=== PATIENT | male | born 1960 | race Caucasian/White ===

== ENCOUNTER → 2017-05-11 | Day surgery (SDC) | payer OTHER ==
--- OUTSIDE RECORDS SUMMARY | 2017-05-10 09:42 | XMS REPORT ---
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 Allergies, Adverse Reactions, Alerts This patient has no known allergies or adverse reactions. Medications This patient has no known medications. Results Test Description Test Time Test Comments Text Results Atomic Results Result Comments CT ABDOMEN/PELVIS WO [place] [address] Patient Name: SHEFALI HERMAN MR #: [id number] : 1960 Age/Sex: 56/M Req # : [id number] Adm Physician: Ordered by: SHARAN CHRISTIANSON OPTIMIZATION CONSULTANT Report #: [id number] Location: ER Room/Bed: Procedure: [id number] CT/CT ABDOMEN/PELVIS WO Exam Date: 11/13/16 Exam Time: 1954 REPORT STATUS: Signed EXAM: CT Abdomen and Pelvis WITHOUT contrast INDICATION: Abdominal pain COMPARISON: CT abdomen and pelvis 11/27/2008 TECHNIQUE: Abdomen and pelvis were scanned utilizing a multidetector helical scanner from the lung base to the pubic symphysis. Coronal and sagittal reformations were obtained. The lack of intravenous contrast limits the evaluation of the solid organs, vasculature, and possible lymphadenopathy. Protocol: General survey without contrast IV CONTRAST : No intravenous contrast was administered as per physician request. ORAL CONTRAST: Oral contrast was administered. COMPLICATIONS: None. RADIATION DOSE: Total Exam DLP: 861.4 mGy*cm. CTDIvol has been reviewed. It is below the limits set by the Radiation Protocol Committee (RPC). FINDINGS: LINES: None. Lower thorax: No parenchymal abnormality. No pneumothorax. No pleural effusion. Liver: No focal mass. No hepatomegaly. Normal parenchyma. Gallbladder: Cholelithiasis. No gallbladder distention. Biliary tree: No intrahepatic duct dilation. No extrahepatic duct dilation. Spleen: No splenomegaly. No focal mass. Pancreas: No focal mass. Normal pancreatic duct. No peripancreatic inflammatory changes. Kidneys: No obstructing calculi. No hydronephrosis. No cysts. No perinephric soft tissue inflammatory changes. Adrenal glands: No adrenal nodules.. Bladder: Normal urinary bladder. Pelvic organs: Normal. GI: No bowel wall thickening. No air-fluid levels. The stomach and small bowel are normal. Multiple diverticuli present in the sigmoid colon, without adjacent soft tissue inflammatory changes. Normal appendix. A moderate amount of retained feces limits intraluminal evaluation of the colon. Peritoneum/ retroperitoneum: No pneumoperitoneum. No ascites. No drainable fluid collection. Lymph nodes: No lymphadenopathy. . Vessels: No focal abnormality. Aortoiliac atherosclerotic calcifications. Limited evaluation. Bones: No focal abnormality. Degenerative changes of the lumbar spine. Soft tissues: No focal abnormality. IMPRESSION: No acute abnormality of the abdomen and pelvis. Cholelithiasis. Diverticulosis without evidence of diverticulitis. Signed by: Dr. Matteo Sánchez M.D. on 11/13/2016 8 :28 PM Dictated By: MATTEO SÁNCHEZ MD 27 Transcribed By: FLOWER on 11/13/162027 COPY TO: SHARAN CHRISTIANSON NP CHEST SINGLE (PORTABLE) [place] [address] Patient Name: SHEFALI HERMAN MR #: [id number] : 1960 Age/Sex: 56/M Req #: [id number] Adm Physician: Ordered by: SCOOBY ZAIDI MD Report #: [id number] Location: Room/Bed: Procedure: [id number] DX/CHEST SINGLE (PORTABLE) Exam Date: Exam Time: REPORT STATUS: Signed PROCEDURE: A single AP view of the chest. COMPARISON: Chest x-ray 11/01/2013. INDICATIONS: RECTAL BLEED, SOB FINDINGS: Lines/tubes: None. Lungs: The lungs are well inflated. Mild left basilar atelectasis. There is no evidence of pneumonia or pulmonary edema. Pleura: There is no pleural effusion or pneumothorax. Heart and mediastinum: The heart and the mediastinum are unremarkable. Bones: No acute bony abnormality. IMPRESSION: No acute cardiopulmonary disease. Dictated by: Jeff Hayward M.D. on 2016 at 18:36 Electronically approved by: Jeff Hayward M.D. on 11/13/2016 at 18:36 Dictated By: JEFF HAYWARD MD 35 Transcribed By: LILIANA on 11/13/161835 COPY TO: SCOOBY ZAIDI MD
[2017-05-10 11:00] LABS: ANION GAP 14.8 mmol/L (8-16); CREATININE, SERUM 1.31 mg/dL (0.72-1.25); POTASSIUM 3.8 mmol/L (3.5-5.1)
[~2017-05-11] MED LIST: ALLEGRA ALLERGY60 MG PO; ALLERGY OTC PO; ASPIR 8181 MG PO; BUPIVACAINE HCL 0.5% INJ 30 ML VIAL INJ ONE; BYSTOLIC10 MG PO; CLINDAMYCIN 600MG/D5W 50ML 50 ML IV ONE; CRESTOR20 MG PO; DEXAMETHASONE SOD PHOS INJ 4 MG/ML VIAL ONE; DEXILANT60 MG PO; DIOVAN HCT 1601 EACH PO; DIOVAN HCT 3201 EACH PO; EPHEDRINE SULFATE INJ 50 MG/10 ML SYR ONE; EXFORGE HCT 5-1 EACH PO; FENTANYL CITRATE/PF 100MCG/2 ML INJ ONE; FLAGYL500 MG PO; GLYCOPYRROLATE INJ 1MG/ 5 ML SYR ONE; HEMOCYTE PLUS1 EACH PO; LEVAQUIN500 MG PO; LIDOCAINE HCL 2% LOCAL INJ 5 ML SDV VIAL INJ ONE; METOCLOPRAMIDE HCL 10 MG/2ML VIAL ONE; MIDAZOLAM HCL 2 MG/2 ML VIAL ONE; MUPIROCIN 2% OINT 22 GM TUBE ONE; NEXIUM40 MG PO; NORCO 7.5-3251 EACH PO; ONDANSETRON HCL INJ 2 MG/ML VIAL ONE; PROPOFOL IV EMULSION 10 MG/ML 20 ML VIAL ONE; SEVOFLURANE INHAL SOLN 250 ML PEN BTL ONE; TRILIPIX135 MG PO; TYLENOL PO; VASOPRESSIN INJ 20 UNIT/ML VIAL ONE; ZETIA10 MG PO
--- NOTE | 2017-05-11 12:07 | Operative Report ---
DATE OF PROCEDURE: May 11, 2017 PREOPERATIVE DIAGNOSIS: Left ulnar nerve compression neuropathy. POSTOPERATIVE DIAGNOSIS: Left cubital tunnel syndrome. PROCEDURE: Left ulnar nerve transposition. ANESTHESIA: General. HISTORY: The patient is a 56-year-old right-hand dominant male who has nerve conduction study showing severe left cubital tunnel syndrome. The risks, benefits, and alternatives of treatment were discussed with the patient and he is prepared to undergo the procedures outlined. PROCEDURE IN DETAIL: The patient was marked preoperatively in the holding area. He was brought to the operating theater and after the induction of adequate general anesthesia, he was prepped and draped in a supine position. A time out is performed. An incision was marked out from the medial epicondyle extending proximally in the groove between the biceps and the triceps muscle for approximately 5 to 6 cm. Distally over the flexor pronator muscle mass, an incision was marked out for approximately 5 to 6 cm as well. The left upper extremity is then exsanguinated, and a tourniquet is inflated to a pressure of 250 mmHg. The incision was made through the skin and subcutaneous tissues. Small venous tributaries were controlled with the electrocautery. The incision is deepened through the subcutaneous tissue and branches of the medial antebrachial cutaneous nerve were identified and protected and preserved. At this point, the dissection continues directly onto the medial epicondyle. The tissues are elevated off of the flexor pronator muscle mass distally to allow for good visualization. Proximally, the subcutaneous tissues were elevated off of the deep fascia up to the level of the distal third of the humerus. The intermuscular septum is identified and immediately posterior to this, the fascia overlying the ulnar nerve is identified. 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
--- NOTE | 2017-05-11 12:46 | Operative Report ---
DATE OF PROCEDURE: May 11, 2017 PREOPERATIVE DIAGNOSIS: Left cubital tunnel syndrome. POSTOPERATIVE DIAGNOSIS: Left cubital tunnel syndrome. PROCEDURE: Left ulnar nerve transposition. ANESTHESIA: General. HISTORY: Patient is a 56-year-old right-hand dominant male with a nerve conduction study test showing severe nerve entrapment at the level of the elbow. Risks, benefits, and alternatives of treatment were discussed with the patient and the family and they are prepared to undergo the procedures outlined. PROCEDURE IN DETAIL: Patient was marked preoperatively in the holding area. He was brought to the operating theater. After the induction of adequate general anesthesia, he was prepped and draped in a supine position. A time out was performed. An incision was marked out extending proximally and distally from the medial epicondyle for approximately 5 to 6 cm. The proximal limb is over the intermuscular groove and the distal limb is over the flexor pronator muscle mass. The left upper extremity was exsanguinated and tourniquet was inflated to a pressure of 250 mmHg. The incision was made through the skin and subcutaneous tissue. Bleeding was controlled using electrocautery. The incision was deepened through the subcutaneous tissues. The branches of the medial antebrachial cutaneous nerve were identified and protected and preserved. Over the flexor pronator muscle mass, the skin and subcutaneous tissues were elevated widely. Over the proximal portion of the distal aspect of the upper arm, the intermuscular septum was identified and the tissues are elevated off of the deep fascial plane. Posterior to the intermuscular septum, an incision was made in the fascia overlying the ulnar nerve and the ulnar nerve was identified. Using the ulnar nerve as a guide, the fascia is divided from proximal to distal through the cubital tunnel, taking care to protect and preserve the ulnar nerve throughout its course. The incision was then carried down to the flexor pronator muscle mass where the first 4 to 5 cm of flexor pronator fascia and muscle was divided in the direction of its fibers directly overlying the ulnar nerve. At this point, the ulnar nerve is dissected posteriorly and a 0.25-inch Nabil drain is placed around it proximally. Using the [place] drain for traction, the ulnar nerve is elevated out of its bed from proximal to distal. Once the ulnar nerve is completely released, it is left in situ. The intermuscular septum has its distal attachments to the medial epicondyle removed sharply so that it does not create a annamarie-site of compression when the nerve is transposed. Resection of the flexor pronator muscle mass was marked out and this is excised using the electrocautery in order to allow a smooth transition from the subcutaneous space to the sub-flexor pronator position. At this point, the nerve is then elevated out of its bed using the [place] and transposed subcutaneously and anteriorly. The elbow is placed through a range of motion and it is noted that the nerve is without kinking or any acuity to its course and lies quite nicely. At this point, the subcutaneous tissues of the elbow are transfixed to the fascia of the medial epicondyle using interrupted 3-0 Vicryl sutures in a [id number] fashion to create a sling and prevent the nerve from subluxing back into the cubital tunnel. Once again, the tunnel is checked to make sure that there is no compression on the nerve and that the nerve glides smoothly. The wound is then copiously irrigated with bacteriostatic saline, closed with 3-0 Vicryl in interrupted buried fashion followed by 5-0 nylon in interrupted horizontal mattress fashion. A Marcaine field block is performed at the operative site using 0.5% plain Marcaine, approximately 20 mL is used. The patient tolerates the procedure well. The incision is dressed with Bactroban ointment, Xeroform gauze, and a sterile bulky conforming bandage from axilla to wrist and a fiberglass splint is fashioned and held in place with a loosely wrapped Mango wrap to maintain the elbow in approximately 75 degrees of flexion and it is held in place with a loosely wrapped Mango wrap. The patient tolerated the procedure well and was brought to the recovery room in satisfactory condition. The tourniquet was deflated. All the fingers pinked up nicely and the patient was returned to recovery room in satisfactory condition and discharged with a postoperative instruction sheet as well as a followup appointment. 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
== END | disposition home or self-care (01) ==
LOC: OR 05-10 09:39
PROVIDERS: ATTEND Plastic Surgery
DX: G56.22 Lesion of ulnar nerve, left upper limb (principal); I25.10 Atherosclerotic heart disease of native coronary artery without angina pectoris; I10 Essential (primary) hypertension; G89.29 Other chronic pain; K21.9 Gastro-esophageal reflux disease without esophagitis; K44.9 Diaphragmatic hernia without obstruction or gangrene; Z01.812 Encounter for preprocedural laboratory examination; Z79.82 Long term (current) use of aspirin; Z95.5 Presence of coronary angioplasty implant and graft; Z87.891 Personal history of nicotine dependence
CPT/HCPCS: 36415; 64718; 80048; J1100; J2001; J2250; J2405; J2765

== ENCOUNTER 2017-09-02 10:06 | Inpatient (IN) | payer OTHER ==
[2017-09-02] VITALS (12 sets, daily range): BP systolic 115–134; BP diastolic 59–101
[~2017-09-02] VITALS: Ht 177.8 cm; Wt 124.5 kg
[~2017-09-02 10:06] MED LIST changes: -BUPIVACAINE HCL 0.5% INJ 30 ML VIAL INJ ONE; -CLINDAMYCIN 600MG/D5W 50ML 50 ML IV ONE; -DEXAMETHASONE SOD PHOS INJ 4 MG/ML VIAL ONE; -EPHEDRINE SULFATE INJ 50 MG/10 ML SYR ONE; -FENTANYL CITRATE/PF 100MCG/2 ML INJ ONE; -GLYCOPYRROLATE INJ 1MG/ 5 ML SYR ONE; -LIDOCAINE HCL 2% LOCAL INJ 5 ML SDV VIAL INJ ONE; -METOCLOPRAMIDE HCL 10 MG/2ML VIAL ONE; -MIDAZOLAM HCL 2 MG/2 ML VIAL ONE; -MUPIROCIN 2% OINT 22 GM TUBE ONE; -ONDANSETRON HCL INJ 2 MG/ML VIAL ONE; -PROPOFOL IV EMULSION 10 MG/ML 20 ML VIAL ONE; -SEVOFLURANE INHAL SOLN 250 ML PEN BTL ONE; -VASOPRESSIN INJ 20 UNIT/ML VIAL ONE
[2017-09-02] MEDS ORDERED: SODIUM CHLORIDE 0.9% 1000ML 1,000 ML IV STA ×2 (10:53→11:39)
[2017-09-02] MEDS ORDERED: ONDANSETRON HCL INJ 2 MG/ML VIAL IV STA (10:53)
[2017-09-02] MEDS ORDERED: HYDROMORPHONE 1MG/1ML INJ IV STA (10:53)
[2017-09-02 11:13] LABS: BASOPHILS % 0.3 % (0.0-1.0); EOSINOPHILS % 0.3 % (0.0-6.0); HEMATOCRIT 35.5 % (38.2-49.6); HEMOGLOBIN 12.8 g/dL (14.0-18.0); LYMPHOCYTES # (AUTO) 0.9 (1.0-3.2); LYMPHOCYTES % 13.1 % (18.0-39.1); MEAN CORPUSCULAR HEMOGLOBIN 30.4 pg (28-32); MEAN CORPUSCULAR HGB CONC 36.1 g/dL (31-35); MEAN CORPUSCULAR VOLUME 84.3 fL (81-99); MONOCYTES # (AUTO) 0.5 (0.2-0.8); MONOCYTES % 7.3 % (4.4-11.3); NEUTROPHILS # (AUTO) 5.4 (2.1-6.9); PLATELET COUNT 181 x10e3/uL (140-360); RED BLOOD COUNT 4.21 x10e6/uL (4.3-5.7)
[2017-09-02 11:17] LABS: INR 1.08; PARTIAL THROMBOPLASTIN TIME 27.9 seconds (23.8-35.5); PROTHROMBIN TIME 13.2 seconds (11.9-14.5)
[2017-09-02 11:19] LABS: CLARITY,URINE CLEAR (CLEAR); COLOR,URINE YELLOW (YELLOW); KETONES,URINE TRACE (NEGATIVE); LEUKOCYTE ESTERASE ,URINE NEGATIVE (NEGATIVE); NITRITE,URINE NEGATIVE (NEGATIVE); PROTEIN,URINE DIPSTICK TRACE (NEGATIVE); URINE UROBILINOGEN 1 mg/dL (0.2 - 1)
[2017-09-02 11:20] LABS: BILIRUBIN,URINE 1+ (NEGATIVE)
[2017-09-02 11:28] LABS: ALANINE AMINOTRANSFERASE 66 IU/L (0-55); ALBUMIN 4.4 g/dL (3.5-5.0); ALBUMIN/GLOBULIN RATIO 1.4 (0.8-2.0); ALKALINE PHOSPHATASE 49 IU/L (40-150); AMYLASE 36 U/L (25-125); ANION GAP 17.2 mmol/L (8-16); BLOOD UREA NITROGEN 6 mg/dL (7-26); BUN/CREATININE RATIO 6 (6-25); CALCIUM 10.7 mg/dL (8.4-10.2); CARBON DIOXIDE 20 mmol/L (22-29); CHLORIDE 83 mmol/L (98-107); CREATINE KINASE 860 IU/L (30-200); CREATININE, SERUM 1.01 mg/dL (0.72-1.25); EST GLOMERULAR FILTRATION RATE > 60 ML/MIN (60-); GLUCOSE 120 mg/dL (74-118); LIPASE 41 U/L (8-78); POTASSIUM 3.2 mmol/L (3.5-5.1)
[2017-09-02] MEDS ORDERED: ONDANSETRON HCL INJ 2 MG/ML VIAL IV SCH ×3 (11:30→11:46)
[2017-09-02] MEDS ORDERED: HYDROMORPHONE 1MG/1ML INJ IV SCH ×3 (11:30→11:45)
[2017-09-02 11:32] LABS: SODIUM 117 mmol/L (136-145)
[2017-09-02 11:37] LABS: WBC,URINE (MAN) 0-5 /HPF (0-5)
[2017-09-02 11:38] LABS: BACTERIA,URINE MANY /HPF
[2017-09-02 11:39] LABS: EPITHELIAL CELLS,URINE FEW /LPF
[2017-09-02 11:40] LABS: MUCUS,URINE FEW (RARE)
[2017-09-02] MEDS ORDERED: SODIUM CHLORIDE 0.9% 1000ML 1,000 ML IV SCH (12:15)
[2017-09-02] MEDS ORDERED: POTASSIUM CHLORIDE 20MEQ/100ML 100 ML IV ONE (12:15)
[2017-09-02] MEDS ORDERED: HYDROMORPHONE 1MG/1ML INJ ONE (12:21)
--- NOTE | 2017-09-02 12:48 | Diagnostic Imaging Report ---
PROCEDURE: X-RAY CHEST, TWO VIEWS COMPARISON: 11/13/2016 INDICATIONS: BACK PAIN FINDINGS: Exam limited due to patient body habitus. Lungs are grossly clear without consolidation, effusion, or pneumothorax. Cardiomediastinal contours within normal limits. No acute osseous abnormality. CONCLUSION: Limited evaluation due to body habitus. Grossly, no acute cardiopulmonary abnormality. Dictated by: Robert Scott M.D. on 09/02/2017 at 12:53 Electronically approved by: Robert Scott M.D. on 09/02/2017 at 12:53
--- NOTE | 2017-09-02 13:00 | Diagnostic Imaging Report ---
PROCEDURE: CT ABDOMEN AND PELVIS WITH CONTRAST TECHNIQUE: The abdomen and pelvis were scanned utilizing a multidetector helical scanner from the diaphragm to the lesser trochanter after the IV administration of 100 cc of Isovue 370 and the oral administration of water. Coronal and sagittal multiplanar reformations were obtained. COMPARISON: CT abdomen and pelvis with contrast 11/27/2008, CT abdomen and pelvis without contrast 11/13/2016. INDICATIONS: ABDOMEN PAIN, NAUSEA, VOMITING FINDINGS: LOWER THORAX: Normal. HEPATOBILIARY: Hepatic parenchyma is diffusely hypoattenuating compatible with steatosis. No focal hepatic lesion. No intrahepatic biliary ductal dilatation. Radiopaque calculus within the dependent portion of the gallbladder, unchanged, and without pericholecystic inflammation. SPLEEN: No splenomegaly. PANCREAS: No focal masses or ductal dilatation. ADRENALS: No adrenal nodules. KIDNEYS/URETERS: No hydronephrosis, stones, or solid mass lesions. PELVIC ORGANS/BLADDER: The urinary bladder is collapsed and poorly evaluated. Prostate and seminal vesicles appear normal. PERITONEUM / RETROPERITONEUM: No ascites. No pneumoperitoneum. LYMPH NODES: No pelvic sidewall, retroperitoneal, or mesenteric lymphadenopathy. VESSELS: Atherosclerotic calcification of the abdominal aorta, major branch vessels, and iliac arterial systems without aneurysmal dilatation. Portal vein, splenic vein, and the central superior mesenteric vein are patent. GI TRACT: The sigmoid colon and rectum are collapsed and poorly evaluated. Scattered sigmoid diverticula without wall thickening or adjacent inflammatory change. The appendix is not identified and may have been resected. No right lower quadrant inflammatory change. Prominence of the gastric rugal folds is likely related to underdistention. No small bowel dilatation to suggest obstruction there BONES AND SOFT TISSUES: Bilateral fat containing inguinal hernias. Small fat containing umbilical hernia. Postsurgical changes of the low anterior abdominal wall. Calcified injection granulomata in the subcutaneous fat of the right gluteal region. Regional skeletal structures are intact with mild degenerative disc changes of the lower lumbar spine. Healing fractures of the left sixth, seventh, and eighth ribs. IMPRESSION: No acute intra-abdominal or pelvic CT abnormalities. Healing fractures of the left sixth, seventh, and eighth ribs laterally. No pneumothorax. Hepatic steatosis. Cholelithiasis without CT evidence of acute cholecystitis. Large bowel diverticulosis without CT evidence of diverticulitis. Atherosclerotic vascular disease. Dictated by: Robert Scott M.D. on 09/02/2017 at 13:05 Electronically approved by: Robert Scott M.D. on 09/02/2017 at 13:05
[2017-09-02] MEDS: HYDROMORPHONE 1MG/1ML INJ IV PRN ×4 (14:35→23:26)
[2017-09-02] MEDS ORDERED: POTASSIUM CHLORIDE 20MEQ/100ML 200 ML IV ONE (15:00)
[2017-09-02] MEDS ORDERED: IOPAMIDOL 370 MG/ML 200 ML INFUS..BTL INJ ONE (15:39)
--- NOTE | 2017-09-02 15:48 | Consultation ---
DATE OF CONSULTATION: September 02, 2017 History is predominantly from patient. HISTORY OF PRESENT ILLNESS: This is a 57-year-old white gentleman who states he has been working around the house and developed backache, neck pain and pelvic pain and then presented to the hospital. He claims that he "wore himself out." Found to have very low sodium and electrolyte abnormalities, which is why renal was consulted. PAST MEDICAL HISTORY: He denies any history of prostate problems or any kidney stone disease. Does have history of coronary artery disease and history of hypertension. There is prior history of admissions in the past for a variety of reasons. Last discharge summary shows evidence of early delirium tremens because of alcoholism, history of rectal bleeding, history of anemia, status post EGD and colonoscopy, which showed bleeding internal hemorrhoids and diverticulosis. This was in 2017. Patient did not tell me that he drinks or smokes. He had denied it completely. He has been admitted before with acute perforated diverticulitis and was treated by Dr. Miky Rouse conservatively. He is currently awake, alert, oriented times 3, comfortable, lying supine, in no apparent distress. HOME MEDICATIONS: Include valsartan, hydrochlorothiazide, rosuvastatin, labetalol, fenofibric acid, Zetia, Dexilant, aspirin. For dose schedule, please see MAR. CURRENT MEDICATIONS: Include hydromorphone p.r.n. and Zofran p.r.n. He is on normal saline at 200 mL an hour. He received a potassium replacement earlier today. ALLERGIES: PENICILLIN, CODEINE. SOCIAL HISTORY: Patient denies smoking or alcohol use. PHYSICAL EXAMINATION GENERAL: Awake, alert, oriented times 3, lying supine in bed. VITALS: Blood pressure 125/71. Pulse rate 97. Oxygen saturation 97 on room air. HEAD AND NECK: Corneas clear. Oral mucosa dry. LUNGS: Relatively clear. No rales or rhonchi. HEART: S1 and S2 audible. ABDOMEN: Otherwise soft and nontender. LOWER EXTREMITIES: No edema. IMPRESSION 1. Hyponatremia. 2. Has large bowel diverticulosis on CT without evidence of diverticulitis. 3. Hepatic steatosis. 4. Healing fractures of the left 6th, 7th and 8th ribs. CT scan was essentially negative for any acute abnormality. White count 6.9, hemoglobin 12.8. Sodium 117, potassium 3.2 with a CK of 860, CK-MB of 8.6 with troponin 0.007. Urinalysis shows specific gravity 1.030, pH 5, trace protein, glucose negative, trace ketones, blood negative, RBCs 6-10 but blood negative, WBCs 0-5. IMPRESSION: Significant hyponatremia and hypokalemia. Patient is relatively asymptomatic for the degree of hyponatremia. Etiology of hyponatremia is due to hydrochlorothiazide. Must rule out SIADH. Will obtain serum uric acid, chemistries, urine electrolytes. Discontinue existing IV fluids. Start normal saline at 125 mL an hour. Replace potassium aggressively. Obtain magnesium and phosphorus levels. Will place on 1,000 mL p.o. fluid restriction and start him on salt tablets. Further recommendations to follow. Will place on a regular salt diet. Elevated CK, possibility of rhabdomyolysis, serum creatinine 1.01. Hemoglobin is stable. Job#: [id number]
[2017-09-02] MEDS: SODIUM CHLORIDE 1 GM TAB PO SCH ×2 (15:59→20:34)
[2017-09-02] MEDS: ONDANSETRON HCL INJ 2 MG/ML VIAL IV PRN ×2 (16:07→20:35)
[2017-09-02] MEDS: SODIUM CHLORIDE 0.9% 1000ML 1,000 ML IV SCH (17:28)
[2017-09-02] MEDS ORDERED: TYLENOL 325 MG PO PRN (17:30)
[2017-09-02] MEDS ORDERED: TYLENOL 325 MG PO SCH (17:30)
[2017-09-02] MEDS ORDERED: ACETAMINOPHEN 325 MG TAB PO PRN ×2 (17:45)
--- NOTE | 2017-09-02 18:04 | History and Physical ---
HISTORY OF PRESENT ILLNESS: A 57-year-old male with past medical history positive for coronary artery disease status post stent in the past, history of partial colectomy due to rupture of colon in 2013, history of hypertension. The patient came to the hospital complaining of nausea, vomiting and back pain. REVIEW OF SYSTEMS: CARDIOVASCULAR: No chest pain or palpitation. RESPIRATORY: No shortness of breath. No cough. GASTROINTESTINAL: He did have nausea and vomiting, no diarrhea. He also had epigastric pain. GENITOURINARY: No frequency, no dysuria. ALLERGIES: HE IS ALLERGIC TO CODEINE AND PENICILLIN. PAST MEDICAL HISTORY: Positive for coronary artery disease and hypertension. PAST SURGICAL HISTORY: Positive for partial colectomy. PHYSICAL EXAMINATION: VITAL SIGNS: Blood pressure 129/80, temperature 97.5, heart rate 69 per minute, respiratory rate is 20 per minute, oxygen saturation 96%. HEART: Shows regular rhythm, normal S1 and S2 sounds. LUNGS: Clear bilaterally. ABDOMEN: Soft, no tenderness, no distention, no visceromegaly. EXTREMITIES: Show no evidence of cyanosis, edema or trauma. On the BMP: Sodium 117, potassium 3.2, chloride 83, CO2 20, BUN 6, creatinine 1.01, glucose 120. On the CBC: White blood count 6.97, hemoglobin 12.8, hematocrit 35.5, platelet count 181,000. PT 13.2, PTT 27.9, INR 1.08. AST 130, ALT 66, total bilirubin 1.4, alkaline phosphatase of 49. CT of the abdomen showed evidence of gallstones but no evidence of cholecystitis. FINAL IMPRESSION: 1. Hyponatremia secondary to vomiting. 1. Rhabdomyolysis. 2. Elevated liver function test. 3. Hypokalemia. 4. Vomiting. 5. Back pain. 6. Hypertension. 7. Coronary artery disease status post stent placement. PLAN OF TREATMENT: Continue normal saline at 125 mL an hour. Dilaudid 1 mg IV q.3 h. as needed. Sodium chloride 2 grams 3 times a day. We are going to order a hepatitis profile, antinuclear antibodies, ceruloplasmin level, antimitochondrial antibodies, HIDA scan to rule out cholecystitis. Consult Dr. Luis Heard for gastroenterology, Dr. Wilfred Freeman for nephrology. Continue monitoring CPKs also. Potassium has been replaced in the emergency room. We are going to recheck the potassium level tomorrow. We are going to recheck the CMP tomorrow also. All questions have been answered. Medication list has been reviewed. Blood work has been reviewed. X-ray has been reviewed. Discussed with the nurse also. Time spent around 55 minutes. Job#: [id number] EV
[2017-09-02 19:38] LABS: % IRON SATURATION 37 % (15-50); IRON 148 ug/dL (65-175); TOTAL IRON BINDING CAPACITY 400 ug/dL (261-478); TRANSFERRIN 286 mg/dL (174-364)
[2017-09-02 19:51] LABS: CREATINE KINASE 659 IU/L (30-200)
[2017-09-02] MEDS: NEBIVOLOL 10 MG TAB PO SCH (20:34)
[2017-09-02] MEDS: LORAZEPAM 1 MG TAB PO PRN (23:26)
[2017-09-03] VITALS (16 sets, daily range): BP systolic 106–138; BP diastolic 67–91
--- NOTE | 2017-09-03 00:25 | Consultation ---
DATE OF CONSULTATION: September 02, 2017 CARDIAC CONSULTATION REASON FOR CONSULTATION: Elevated CK, CK-MB in patient with known coronary artery disease. HISTORY: A 57-year-old gentleman, who is known with multiple medical health problems. His cardiac issue is coronary artery disease. He had myocardial infarction in 2013. He had PCI and stenting to the LAD. This was done by Dr. Mario. He is followed for cardiology by Dr. Mata. He had full workup on August 20, 2017, where he had a nuclear stress test and CT scan of his coronaries. As per patient, they are all reported being normal. His other problem include drinking alcohol every now and then and history of severe diverticular disease. In fact, he had partial colectomy secondary to colon rupture in 2013. Patient came to this institution complaining of severe lower abdominal pain and back pain. He developed severe nausea, vomiting. It was intractable. Patient seen in ER, his sodium was only at 117. His potassium was low also. His BUN and creatinine were normal. A CAT scan of the abdomen showed no acute abdomen, calcified vessels, patent venous circulation to the abdomen, and presence of calculus in the gallbladder. Patient's CK total was at 860, MB of 8.6, but troponin is normal. His EKG was very abnormal showing low voltage. Nonspecific ST changes. Because of all of that, cardiac consultation is obtained. I visited with the patient whom he denied having any anginal chest pain. He denied having any chest pain all together. He does have easy fatigability, shortness of breath on exertion. He does have some swelling of the lower extremities. There is probably sleep apnea, but no orthopnea, no paroxysmal nocturnal dyspnea, no syncope or presyncope. REVIEW OF SYSTEMS: Was extensive to all systems, will be summarized for clarity. CARDIAC: As per above. PULMONARY: No cough. No hemoptysis. GI: As per acute illness. : No hematuria. No dysuria. MUSCULOSKELETAL: Back pain. No radiculopathy. LOWER EXTREMITIES: Swelling of the feet. NEUROLOGICAL: No headache. No seizure activity. No localized deficit. ENDOCRINE: No polyuria. No polydipsia. HEMATOLOGY: No easy bruising or bleeding. HOME MEDICATIONS: Long list including valsartan, hydrochlorothiazide, Crestor, labetalol, fenofibrate, Zetia, and Dexilant. ALLERGIES: PENICILLIN AND CODEINE. PAST MEDICAL HISTORY 1. Diverticular disease, status post partial colectomy. 2. Admission once with alcohol use and delirium. 3. Coronary artery disease, post myocardial infarction in the past and stent. 4. Hypertension. 5. Diverticular disease. SOCIAL HISTORY: He is . 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 He does not smoke. FAMILY HISTORY: Few members of the family with hypertension and coronary artery disease. PHYSICAL EXAMINATION VITALS: Height of 5'10. Weight of 281 pounds. Blood pressure 120/70. Heart rate of 70. Respiratory rate of 18. HEENT: Pupils are reactive. NECK: No elevation of jugular venous pulsation. No bruit. CHEST: Clear to auscultation and percussion. HEART: PMI 5th left intercostal space. Normal 1st and 2nd heart sounds. ABDOMEN: Soft, obese. No rebound. No abdominal bruits. EXTREMITIES: Mild peripheral edema. NEUROLOGIC: Awake, alert, oriented. No gross motor or sensory deficits. LABORATORY DATA: Sodium of 117, potassium 3.2, BUN of 6, creatinine of 1.01, bicarb of 20. White blood cell count of 6.9, hemoglobin is 12.8, hematocrit 35%, platelet count of 181,000. Calcium is elevated at 10.7. Amylase, lipase are normal. CK total elevated at 860, MB of 8.6, troponin of only 0.007. IMAGING: Chest x-ray by report showed no abnormalities. CT scan showed calculus in the gallbladder, calcified aorta, and major vessels, patent venous circulation. IMPRESSIONS AND PLAN 1. Hyponatremia. 2. Intractable nausea and vomiting. 3. Diverticulosis. 4. Gallstone is noted. 5. Elevated transaminase. 6. Coronary artery disease, status post myocardial infarction and stent. 7. Elevated creatine kinase, CK-MB, but normal troponin. 8. Abnormal electrocardiogram with low voltage. 9. Cardiac-aguilar, there is recent cardiac evaluation, which showed that his nuclear stress test and possible computed tomography of coronary were normal on August 20. My recommendation is observation. The only test I will recommend is to correct his electrolytes, to observe his condition, to get an echocardiogram because of the low voltage on his EKG. Depending on the course and more serial cardiac enzymes, which will be taken, further steps to be done. Job#: [id number] CQ
[2017-09-03] MEDS: HYDROMORPHONE 1MG/1ML INJ IV PRN ×4 (02:35→23:55)
[2017-09-03] MEDS: SODIUM CHLORIDE 0.9% 1000ML 1,000 ML IV SCH ×2 (02:35→06:15)
[2017-09-03] MEDS: ONDANSETRON HCL INJ 2 MG/ML VIAL IV PRN ×2 (04:15→20:32)
[2017-09-03] MEDS: LORAZEPAM 1 MG TAB PO PRN ×3 (05:20→20:32)
[2017-09-03 05:28] LABS: BASOPHILS % 0.6 % (0.0-1.0); EOSINOPHILS % 1.1 % (0.0-6.0); HEMATOCRIT 31.3 % (38.2-49.6); HEMOGLOBIN 10.9 g/dL (14.0-18.0); LYMPHOCYTES # (AUTO) 0.7 (1.0-3.2); LYMPHOCYTES % 18.8 % (18.0-39.1); MEAN CORPUSCULAR HEMOGLOBIN 30.3 pg (28-32); MEAN CORPUSCULAR HGB CONC 34.8 g/dL (31-35); MEAN CORPUSCULAR VOLUME 86.9 fL (81-99); MONOCYTES # (AUTO) 0.4 (0.2-0.8); MONOCYTES % 10.5 % (4.4-11.3); NEUTROPHILS # (AUTO) 2.4 (2.1-6.9); NEUTROPHILS % 68.1 % (38.7-80.0); PLATELET COUNT 128 x10e3/uL (140-360); RED CELL DISTRIBUTION WIDTH 13.2 % (11.7-14.4)
[2017-09-03 06:00] LABS: CREATINE KINASE 556 IU/L (30-200)
[2017-09-03 06:15] LABS: ALANINE AMINOTRANSFERASE 51 IU/L (0-55); ALBUMIN 3.6 g/dL (3.5-5.0); ALBUMIN/GLOBULIN RATIO 1.5 (0.8-2.0); ALKALINE PHOSPHATASE 38 IU/L (40-150); ANION GAP 13.6 mmol/L (8-16); BLOOD UREA NITROGEN 6 mg/dL (7-26); BUN/CREATININE RATIO 7 (6-25); CALCIUM 8.6 mg/dL (8.4-10.2); CARBON DIOXIDE 23 mmol/L (22-29); CHLORIDE 91 mmol/L (98-107); CREATININE, SERUM 0.86 mg/dL (0.72-1.25); EST GLOMERULAR FILTRATION RATE > 60 ML/MIN (60-); GLUCOSE 89 mg/dL (74-118); POTASSIUM 3.6 mmol/L (3.5-5.1); SODIUM 124 mmol/L (136-145)
--- NOTE | 2017-09-03 06:53 | Diagnostic Imaging Report ---
EXAM: CHEST SINGLE (PORTABLE), AP 1 view INDICATION: Back pain COMPARISON: AP view of the chest September 03, 2017 FINDINGS: LINES/TUBES: None LUNGS: No consolidations or edema. PLEURA: No effusions or pneumothorax. HEART AND MEDIASTINUM: Normal size and contour. BONES AND SOFT TISSUES: No acute findings. IMPRESSION: No acute thoracic abnormality. Signed by: Dr. Martha Mejia M.D. on 09/03/2017 6:50 AM
[2017-09-03] MEDS ORDERED: SINCALIDE 3 MCG/VIAL INJ ONE (07:52)
[2017-09-03] MEDS ORDERED: PANTOPRAZOLE SOD 40 MG TABEC PO SCH (09:00)
[2017-09-03] MEDS ORDERED: EZETIMIBE 10 MG TAB PO SCH (09:00)
[2017-09-03] MEDS ORDERED: MAGNESIUM SULFATE 2GM/50ML 50 ML IV ONE (09:15)
[2017-09-03] MEDS ORDERED: [UNRECOGNIZED DRUG - OTHER] IV SCH (09:30)
[2017-09-03] MEDS ORDERED: THIAMINE HCL IV SCH (09:30)
[2017-09-03] MEDS ORDERED: MULTIVITAMINS IV SCH (09:30)
[2017-09-03] MEDS: SODIUM CHLORIDE 1 GM TAB PO SCH ×3 (11:47→20:31)
[2017-09-03] MEDS: ASPIRIN 81 MG CHEW TAB PO SCH (11:47)
[2017-09-03] MEDS: PANTOPRAZOLE SOD 40 MG TABEC PO SCH (11:47)
[2017-09-03] MEDS ORDERED: CHLORDIAZEPOXIDE HCL 25 MG CAP PO SCH (12:00)
--- NOTE | 2017-09-03 14:31 | Diagnostic Imaging Report ---
Hepatobiliary Scan with Gallbladder Ejection Fraction Clinical information: 57 M with gallstones and elevated LFT's Report: Following intravenous administration of 6.6 millicuries of Tc-99m mebrofenin, dynamic images of the abdomen in the anterior projection were obtained through 21 minutes. Sincalide (CCK analog) 2.6 micrograms was administered intravenously over 30 minutes with additional imaging for determination of gallbladder ejection fraction. Perfusion to the liver is normal. Extraction of tracer from the blood pool by the liver parenchyma is normal. Tracer is seen promptly within the biliary tract. The gallbladder begins to fill by 5 minutes post-injection of tracer and fills adequately. Tracer is seen in the small bowel by 8 minutes. The gallbladder ejection fraction with administration of sincalide is 43% (normal greater than 40%). Impression: 1. Filling of the gallbladder excludes the diagnosis of acute cystic duct obstruction/acute cholecystitis. 2. Normal gallbladder ejection fraction of 43% does not support the clinical diagnosis of chronic cholecystitis/gallbladder dyskinesia. Signed by: Dr. Kaelyn Negro M.D. on 09/03/2017 2:27 PM
--- NOTE | 2017-09-03 17:40 | Progress Note ---
DATE: September 03, 2017 INTERNAL MEDICINE PROGRESS NOTE SUBJECTIVE: Patient is doing well. No significant complaint except for chronic back pain. PHYSICAL EXAM VITAL SIGNS: Blood pressure 107/81. Temperature 97.1. Heart rate 89 per minute. Respiratory rate is 16 per minute. Oxygen 95%. HEART: Shows regular rhythm and normal S1, S2 sounds. LUNGS: Clear bilaterally. ABDOMEN: Soft. EXTREMITIES: Show no evidence of cyanosis, edema or trauma. On the BMP--sodium 124, potassium 3.6, chloride 91, CO2 23. BUN 6, creatinine 0.86, glucose 89. On the CBC--white blood count 3.51, hemoglobin 10.9, hematocrit 31.3, platelet count 128,000. PT 13.2, PTT 27.9, INR 1.08. AST 90, ALT 51, total bilirubin 1.1, alkaline phosphatase 38. A HIDA scan showed no evidence of any acute cholecystitis or cystic duct obstructions. FINAL IMPRESSION 1. Severe hyponatremia which is slowly resolving secondary to beer potomania. 2. Rhabdomyolysis which is slowly resolving. 3. Elevated liver function tests most likely secondary to alcoholic hepatitis. 4. Hypokalemia which is resolved. 5. Vomiting which is resolved. 6. Chronic pain syndrome. 7. Hypertension. 8. Coronary artery disease status post stent placement. PLAN OF TREATMENT: Continue thiamine 100 mg/drip per hour, Dilaudid 1 mg IV q.3 hours, Zofran 4 mg IV q.4 hours as needed, sodium tablets 2 g 3 times a day, lorazepam 2 mg q.6 hours as needed for anxiety, Aspirin 81 mg daily, Protonix 40 mg daily, Bystolic 10 mg daily, Tylenol 325 mg daily as needed for pain. Patient is most going to coming out of the ICU. We are going to repeat a CMP tomorrow and CK tomorrow. He is doing better. Continue monitoring also liver function test. CMP is going to be done tomorrow. Dr. Luis Heard is seeing him from the gastroenterology point of view, Dr. Friedman from the cardiology point of view and Dr. Wilfred Freeman for nephrology. Job#: [id number] ZACHARY
[2017-09-03] MEDS: NEBIVOLOL 10 MG TAB PO SCH (20:31)
[2017-09-04] VITALS (8 sets, daily range): BP systolic 126–163; BP diastolic 63–79
[2017-09-04] MEDS: MULTIVITAMINS IV SCH ×3 (01:30→22:02)
[2017-09-04] MEDS: [UNRECOGNIZED DRUG - OTHER] IV SCH ×3 (01:30→22:02)
[2017-09-04] MEDS: THIAMINE HCL IV SCH ×3 (01:30→22:02)
[2017-09-04] MEDS: HYDROMORPHONE 1MG/1ML INJ IV PRN ×4 (03:40→18:07)
[2017-09-04 05:18] LABS: BASOPHILS % 0.5 % (0.0-1.0); EOSINOPHILS # (AUTO) 0.1 (0.0-0.4); EOSINOPHILS % 2.1 % (0.0-6.0); HEMATOCRIT 30.9 % (38.2-49.6); HEMOGLOBIN 10.5 g/dL (14.0-18.0); LYMPHOCYTES # (AUTO) 1.1 (1.0-3.2); LYMPHOCYTES % 28.2 % (18.0-39.1); MEAN CORPUSCULAR HEMOGLOBIN 30.7 pg (28-32); MEAN CORPUSCULAR VOLUME 90.4 fL (81-99); MONOCYTES # (AUTO) 0.4 (0.2-0.8); MONOCYTES % 9.3 % (4.4-11.3); NEUTROPHILS # (AUTO) 2.3 (2.1-6.9); NEUTROPHILS % 58.9 % (38.7-80.0); PLATELET COUNT 145 x10e3/uL (140-360); RED BLOOD COUNT 3.42 x10e6/uL (4.3-5.7); RED CELL DISTRIBUTION WIDTH 13.7 % (11.7-14.4)
[2017-09-04 05:42] LABS: ALANINE AMINOTRANSFERASE 48 IU/L (0-55); ALBUMIN 3.5 g/dL (3.5-5.0); ALBUMIN/GLOBULIN RATIO 1.5 (0.8-2.0); ALKALINE PHOSPHATASE 36 IU/L (40-150); ANION GAP 13.6 mmol/L (8-16); BLOOD UREA NITROGEN 9 mg/dL (7-26); BUN/CREATININE RATIO 10 (6-25); CALCIUM 8.8 mg/dL (8.4-10.2); CARBON DIOXIDE 23 mmol/L (22-29); CHLORIDE 102 mmol/L (98-107); CREATININE, SERUM 0.89 mg/dL (0.72-1.25); EST GLOMERULAR FILTRATION RATE > 60 ML/MIN (60-); GLUCOSE 86 mg/dL (74-118); MAGNESIUM 1.5 MG/DL (1.3-2.1); PHOSPHORUS 2.8 MG/DL (2.3-4.7); POTASSIUM 3.6 mmol/L (3.5-5.1); SODIUM 135 mmol/L (136-145)
[2017-09-04 05:54] LABS: FERRITIN 350.72 ng/mL (21.81-274.66)
[2017-09-04 06:13] LABS: FOLATE 15.4 ng/mL (7.0-15.4)
[2017-09-04] MEDS: LORAZEPAM 1 MG TAB PO PRN ×2 (07:34→15:36)
[2017-09-04] MEDS: ASPIRIN 81 MG CHEW TAB PO SCH (08:25)
[2017-09-04] MEDS: SODIUM CHLORIDE 1 GM TAB PO SCH ×3 (08:25→22:02)
[2017-09-04 14:26] LABS: ANION GAP 12.6 mmol/L (8-16); BLOOD UREA NITROGEN 10 mg/dL (7-26); BUN/CREATININE RATIO 11 (6-25); CALCIUM 8.8 mg/dL (8.4-10.2); CARBON DIOXIDE 21 mmol/L (22-29); CHLORIDE 101 mmol/L (98-107); CREATININE, SERUM 0.89 mg/dL (0.72-1.25); EST GLOMERULAR FILTRATION RATE > 60 ML/MIN (60-); GLUCOSE 127 mg/dL (74-118); POTASSIUM 3.6 mmol/L (3.5-5.1); SODIUM 131 mmol/L (136-145)
[2017-09-04] MEDS: LEVOFLOXACIN 750MG/D5W 150ML 150 ML IV SCH (17:30)
[2017-09-04] MEDS: FLUTICASONE PROPIONATE NASAL SPRAY NS SCH (18:06)
[2017-09-04] MEDS: NEBIVOLOL 10 MG TAB PO SCH (22:02)
[2017-09-05] VITALS (7 sets, daily range): BP systolic 139–188; BP diastolic 72–96
[2017-09-05 05:01] LABS: BASOPHILS % 0.4 % (0.0-1.0); EOSINOPHILS # (AUTO) 0.1 (0.0-0.4); EOSINOPHILS % 2.8 % (0.0-6.0); HEMATOCRIT 32.2 % (38.2-49.6); LYMPHOCYTES # (AUTO) 1.1 (1.0-3.2); LYMPHOCYTES % 21.8 % (18.0-39.1); MEAN CORPUSCULAR HEMOGLOBIN 30.6 pg (28-32); MEAN CORPUSCULAR HGB CONC 34.2 g/dL (31-35); MEAN CORPUSCULAR VOLUME 89.7 fL (81-99); MONOCYTES # (AUTO) 0.5 (0.2-0.8); MONOCYTES % 9.1 % (4.4-11.3); NEUTROPHILS # (AUTO) 3.3 (2.1-6.9); NEUTROPHILS % 64.9 % (38.7-80.0); PLATELET COUNT 174 x10e3/uL (140-360); RED BLOOD COUNT 3.59 x10e6/uL (4.3-5.7); RED CELL DISTRIBUTION WIDTH 13.7 % (11.7-14.4)
[2017-09-05 05:20] LABS: ALANINE AMINOTRANSFERASE 57 IU/L (0-55); ALBUMIN 3.6 g/dL (3.5-5.0); ALBUMIN/GLOBULIN RATIO 1.2 (0.8-2.0); ALKALINE PHOSPHATASE 37 IU/L (40-150); BLOOD UREA NITROGEN 9 mg/dL (7-26); BUN/CREATININE RATIO 10 (6-25); CALCIUM 9.3 mg/dL (8.4-10.2); CARBON DIOXIDE 22 mmol/L (22-29); CHLORIDE 102 mmol/L (98-107); CREATINE KINASE 119 IU/L (30-200); CREATININE, SERUM 0.88 mg/dL (0.72-1.25); EST GLOMERULAR FILTRATION RATE > 60 ML/MIN (60-); GLUCOSE 97 mg/dL (74-118); SODIUM 134 mmol/L (136-145)
[2017-09-05] MEDS: ASPIRIN 81 MG CHEW TAB PO SCH (08:13)
[2017-09-05] MEDS: IRON-VITAMIN-MINERAL CAPSULE PO SCH ×2 (08:13→16:19)
[2017-09-05] MEDS: FLUTICASONE PROPIONATE NASAL SPRAY NS SCH ×2 (08:13→16:19)
[2017-09-05] MEDS: PANTOPRAZOLE SOD 40 MG TABEC PO SCH (08:13)
[2017-09-05] MEDS: SODIUM CHLORIDE 1 GM TAB PO SCH ×3 (08:13→21:14)
[2017-09-05] MEDS: LORAZEPAM 1 MG TAB PO PRN ×2 (14:30→21:14)
[2017-09-05] MEDS: LEVOFLOXACIN 750MG/D5W 150ML 150 ML IV SCH (16:19)
[2017-09-05] MEDS: THIAMINE HCL IV SCH (19:00)
[2017-09-05] MEDS: [UNRECOGNIZED DRUG - OTHER] IV SCH (19:00)
[2017-09-05] MEDS: MULTIVITAMINS IV SCH (19:00)
[2017-09-05] MEDS: NEBIVOLOL 10 MG TAB PO SCH (21:14)
[2017-09-06] VITALS (10 sets, daily range): BP systolic 142–194; BP diastolic 72–108
[2017-09-06 05:22] LABS: ALANINE AMINOTRANSFERASE 54 IU/L (0-55); ALBUMIN 3.5 g/dL (3.5-5.0); ALBUMIN/GLOBULIN RATIO 1.3 (0.8-2.0); ALKALINE PHOSPHATASE 37 IU/L (40-150); ANION GAP 12.9 mmol/L (8-16); BLOOD UREA NITROGEN 9 mg/dL (7-26); BUN/CREATININE RATIO 9 (6-25); CALCIUM 9.1 mg/dL (8.4-10.2); CARBON DIOXIDE 23 mmol/L (22-29); CHLORIDE 101 mmol/L (98-107); CREATININE, SERUM 0.96 mg/dL (0.72-1.25); EST GLOMERULAR FILTRATION RATE > 60 ML/MIN (60-); GLUCOSE 100 mg/dL (74-118); POTASSIUM 3.9 mmol/L (3.5-5.1); SODIUM 133 mmol/L (136-145)
[2017-09-06 06:39] LABS: BASOPHILS % 0.3 % (0.0-1.0); EOSINOPHILS # (AUTO) 0.1 (0.0-0.4); EOSINOPHILS % 1.6 % (0.0-6.0); HEMATOCRIT 32.5 % (38.2-49.6); LYMPHOCYTES # (AUTO) 0.8 (1.0-3.2); LYMPHOCYTES % 20.4 % (18.0-39.1); MEAN CORPUSCULAR HEMOGLOBIN 30.6 pg (28-32); MEAN CORPUSCULAR HGB CONC 33.8 g/dL (31-35); MEAN CORPUSCULAR VOLUME 90.5 fL (81-99); MONOCYTES # (AUTO) 0.5 (0.2-0.8); MONOCYTES % 12.5 % (4.4-11.3); NEUTROPHILS # (AUTO) 2.5 (2.1-6.9); NEUTROPHILS % 64.4 % (38.7-80.0); PLATELET COUNT 178 x10e3/uL (140-360); RED BLOOD COUNT 3.59 x10e6/uL (4.3-5.7); RED CELL DISTRIBUTION WIDTH 13.9 % (11.7-14.4)
[2017-09-06] MEDS: IRON-VITAMIN-MINERAL CAPSULE PO SCH ×2 (10:30→16:00)
[2017-09-06] MEDS: PANTOPRAZOLE SOD 40 MG TABEC PO SCH (10:30)
[2017-09-06] MEDS: ASPIRIN 81 MG CHEW TAB PO SCH (10:30)
[2017-09-06] MEDS: SODIUM CHLORIDE 1 GM TAB PO SCH ×3 (10:30→21:13)
[2017-09-06] MEDS: FLUTICASONE PROPIONATE NASAL SPRAY NS SCH ×2 (10:30→16:00)
[2017-09-06] MEDS ORDERED: VALSARTAN 80 MG TAB PO SCH (11:30)
[2017-09-06] MEDS: LORAZEPAM 1 MG TAB PO PRN (13:10)
[2017-09-06] MEDS: CLONIDINE HCL 0.2 MG TAB PO PRN ×2 (14:28→23:33)
[2017-09-06] MEDS: MULTIVITAMINS IV SCH (16:00)
[2017-09-06] MEDS: LEVOFLOXACIN 750MG/D5W 150ML 150 ML IV SCH (16:00)
[2017-09-06] MEDS: [UNRECOGNIZED DRUG - OTHER] IV SCH (16:00)
[2017-09-06] MEDS: THIAMINE HCL IV SCH (16:00)
[2017-09-06] MEDS ORDERED: FUROSEMIDE 40 MG TAB PO ONE (16:15)
[2017-09-06] MEDS ORDERED: CLONIDINE HCL 0.2 MG/24 HR 1 EA PATCH TOP SCH (16:15)
--- NOTE | 2017-09-06 16:15 | Consultation ---
DATE OF CONSULTATION: NO DICTATION. 8 seconds. Job#: [id number] Some 111 asked him on obtaining to auscultation on patient's chemistry.
[2017-09-06] MEDS ORDERED: NIFEDIPINE CR 30 MG TAB PO SCH ×2 (17:00)
[2017-09-06] MEDS: NIFEDIPINE CR 30 MG TAB PO SCH (17:19)
[2017-09-06] MEDS: ONDANSETRON HCL INJ 2 MG/ML VIAL IV PRN (17:24)
--- NOTE | 2017-09-06 18:09 | Progress Note ---
DATE: September 06, 2017 INTERNAL MEDICINE PROGRESS NOTE SUBJECTIVE: A 57-year-old male who came here with severe hyponatremia secondary to potomania, secondary to drinking beer, rhabdomyolysis, alcoholic hepatitis and vomiting. Patient is not feeling well. Blood pressure is extremely high today. We have to started him on nifedipine 30 mg twice a day, clonidine patch and also losartan 100 mg daily plus clonidine 0.2 mg q.4 h. as needed. Patient going to stay until we can regulate blood pressure better. OBJECTIVE VITAL SIGNS: Blood pressure 194/99. Temperature 97.7. Heart rate 70 per minute. Respiratory rate is 19 per minute. Oxygen saturation 97%. HEART: Regular rhythm. No murmur. No extra sounds. LUNGS: Clear bilaterally. ABDOMEN: Soft. EXTREMITIES: Show no evidence of cyanosis, edema or trauma. BLOOD WORK: On the BMP sodium 133, potassium 3.9, chloride 101. CO2 23. BUN 9, creatinine 0.86. Glucose 100. On the CBC white blood count 3.83, hemoglobin 11.0, hematocrit 32.5, platelet count 178,000. PT 13.2, INR 1.08. PTT 27.9, AST 64, ALT 54, total bilirubin 0.6, alkaline phosphatase 37, lipase 41. FINAL IMPRESSION 1. Severe hyponatremia secondary to beer potomania. 2. Rhabdomyolysis which has completely resolved. 3. Elevated liver function tests secondary to alcoholic hepatitis. 4. Fatty liver secondary to alcoholic hepatitis. 5. Hypokalemia which is resolved. 6. Vomiting which is resolved. 7. Chronic pain syndrome. 8. Hypertension. 9. Coronary artery disease status post stent placement. 10. Hypertensive emergency. PLAN OF TREATMENT: We are going to discontinue IV fluids. Continue with clonidine patch 0.1 mg once a week. Losartan 100 mg daily. Discontinue Valsartan. He was started on nifedipine 30 mg twice a day. Continue Bystolic 10 mg daily. Continue Flonase 2 inhalations once twice a day. Protonix 40 mg daily. Aspirin 81 mg daily. Clonidine 0.2 mg q.4 h. as needed for hypertension. Lorazepam 2 mg q.6 h. as needed. Sodium chloride 2 grams 3 times a day. Continue multivitamin tablet daily. Patient is told to abstain from drinking alcohol. Hepatitis profile and antinuclear antibodies completely negative so far. We are going to hold the discharge for tonight and see how he does tomorrow and then once the blood pressure is under control the patient will be able to go home. hopefully. Job#: [id number] ANCA
[2017-09-06] MEDS: HYDROMORPHONE 1MG/1ML INJ IV PRN ×2 (19:00→23:32)
[2017-09-06] MEDS: NEBIVOLOL 10 MG TAB PO SCH (21:13)
[2017-09-07] VITALS (8 sets, daily range): BP systolic 148–196; BP diastolic 87–105
[2017-09-07] MEDS: CLONIDINE HCL 0.2 MG TAB PO PRN ×3 (06:04→16:15)
[2017-09-07 06:50] LABS: BASOPHILS % 0.8 % (0.0-1.0); EOSINOPHILS # (AUTO) 0.1 (0.0-0.4); EOSINOPHILS % 1.7 % (0.0-6.0); HEMATOCRIT 32.9 % (38.2-49.6); HEMOGLOBIN 11.1 g/dL (14.0-18.0); LYMPHOCYTES # (AUTO) 0.9 (1.0-3.2); LYMPHOCYTES % 24.3 % (18.0-39.1); MEAN CORPUSCULAR HEMOGLOBIN 30.5 pg (28-32); MEAN CORPUSCULAR HGB CONC 33.7 g/dL (31-35); MEAN CORPUSCULAR VOLUME 90.4 fL (81-99); MONOCYTES # (AUTO) 0.5 (0.2-0.8); MONOCYTES % 14.9 % (4.4-11.3); NEUTROPHILS # (AUTO) 2.1 (2.1-6.9); NEUTROPHILS % 57.2 % (38.7-80.0); PLATELET COUNT 168 x10e3/uL (140-360); RED BLOOD COUNT 3.64 x10e6/uL (4.3-5.7)
[2017-09-07 07:02] LABS: ALANINE AMINOTRANSFERASE 52 IU/L (0-55); ALBUMIN 3.5 g/dL (3.5-5.0); ALBUMIN/GLOBULIN RATIO 1.3 (0.8-2.0); ALKALINE PHOSPHATASE 42 IU/L (40-150); ANION GAP 13.7 mmol/L (8-16); BLOOD UREA NITROGEN 9 mg/dL (7-26); BUN/CREATININE RATIO 9 (6-25); CALCIUM 9.2 mg/dL (8.4-10.2); CARBON DIOXIDE 24 mmol/L (22-29); CHLORIDE 100 mmol/L (98-107); CREATININE, SERUM 0.98 mg/dL (0.72-1.25); EST GLOMERULAR FILTRATION RATE > 60 ML/MIN (60-); GLUCOSE 100 mg/dL (74-118); POTASSIUM 3.7 mmol/L (3.5-5.1); SODIUM 134 mmol/L (136-145)
[2017-09-07] MEDS: IRON-VITAMIN-MINERAL CAPSULE PO SCH ×2 (07:19→16:14)
[2017-09-07] MEDS: PANTOPRAZOLE SOD 40 MG TABEC PO SCH (07:19)
[2017-09-07] MEDS: FLUTICASONE PROPIONATE NASAL SPRAY NS SCH ×2 (07:19→16:14)
[2017-09-07] MEDS: ASPIRIN 81 MG CHEW TAB PO SCH (07:19)
[2017-09-07] MEDS: NIFEDIPINE CR 30 MG TAB PO SCH (07:20)
[2017-09-07] MEDS: SODIUM CHLORIDE 1 GM TAB PO SCH (07:20)
[2017-09-07] MEDS ORDERED: LOSARTAN POTASSIUM 100 MG TAB PO SCH (09:00)
[2017-09-07] MEDS: LORAZEPAM 1 MG TAB PO PRN (10:55)
[2017-09-07] MEDS ORDERED: BUSPIRONE HCL 5 MG TAB PO PRN (15:45)
[2017-09-07] MEDS ORDERED: BUSPIRONE HCL 5 MG TAB PO NR (15:45)
--- NOTE | 2017-09-07 16:01 | Discharge Summary ---
ADDENDUM TO DISCHARGE SUMMARY Hepatitis profile is negative. Antinuclear antibody is negative. Ceruloplasmin level is normal. RYLEE AMOR MD Job#: [id number]
--- NOTE | 2017-09-07 16:05 | Discharge Summary ---
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 He had a partial colectomy due to diverticular disease. Came here complaining of abdominal pain and back pain. He had nausea and vomiting. In the ER, the sodium was 117. He was admitted to the ICU, started on sodium tablets, IV normal saline. The sodium was corrected. Now is 134. He was transferred out to the intensive care unit. He is having increasing episodes of high blood pressure, so we put him on clonidine 0.2 mg q.4 hours as needed for hypertension. He is on clonidine patch 0.1 mg once a week and Bystolic 10 mg daily, losartan 100 mg daily. Nifedipine has been increased to 60 mg twice a day. We are optimizing antihypertensive regimen for the patient to be able to go home. PHYSICAL EXAM VITAL SIGNS: The blood pressure 162/99, temperature 97.2, heart rate 65 per minute, respiratory rate is 18 per minute, oxygen saturation 98%. HEART: Shows regular rhythm. Normal S1, S2 sounds. LUNGS: Clear bilaterally. ABDOMEN: Soft. EXTREMITIES: Show no evidence of cyanosis, edema or trauma. FINAL IMPRESSIONS 1. Hyponatremia secondary to potomania. 2. Rhabdomyolysis, which is resolved. 3. Elevated liver function tests, most likely secondary to alcoholic hepatitis. 4. Asymptomatic gallstones. 5. Coronary artery disease, status post stent placement. PLAN OF TREATMENT: He is going to discharge home with aspirin 81 mg daily, clonidine patch once a week, Bystolic 10 mg daily, losartan 100 mg daily, nifedipine 60 mg twice a day. Tentative discharge only if the blood pressure is more than 100/50 but less than 150/90. Patient is doing physical therapy already. He is walking round with no problem. 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 Patient is told to abstain from drinking also. RYLEE AMOR MD Job#: [id number] TA
--- NOTE | 2017-09-07 17:52 | Consultation ---
DATE OF CONSULTATION: September 07, 2017 PSYCHIATRIC CONSULTATION REASON FOR CONSULTATION: To evaluate patient's alcohol and mood. HISTORY OF PRESENTING ILLNESS: The patient is a 57-year-old male admitted to the hospital for hyponatremia. Psychiatric consultation is called to evaluate patient's mood. As per medical record, patient has history of coronary artery disease and hypertension. Upon evaluation today, patient found to be in the room with his . He is alert, awake, and oriented to situation. He reports doing okay. He denies anxiety or depression. He reports intermittent feeling of hopelessness, but denies any suicidal or homicidal ideation. He complains of poor sleep, intermittent appetite. He denies any hallucination. 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 medications, but he needs something for sleep and for anxiety at times. PAST PSYCHIATRIC HISTORY: Patient denies past psychiatric history. He denies past suicide attempts. He drinks alcohol every day. He takes 32 ounces of mixed drinks with [place]. Last drink was 2 weeks ago. Denies drug abuse. FAMILY HISTORY: Denied. SOCIAL HISTORY: Patient states he lives with his . MENTAL STATUS EXAM: The patient is a middle-aged male. He is alert, awake, and oriented to situation. Mood is doing fairly okay with some anxiety. He denies any hallucination. He denies any suicidal or homicidal ideation. Affect is consistent with mood. Insight and judgment are fair. Psychomotor state is passive. Memory is grossly intact. CURRENT MEDICATIONS 1. Ativan 2 mg q.6 hours p.r.n. 2. Clonidine. 3. Losartan. 4. Fluticasone. 5. Pantoprazole. 6. Aspirin. 7. Tylenol. 8. Dilaudid. 9. Ondansetron. 10. Nifedipine. CURRENT LABS: WBC 3.62, RBC 3.64, hemoglobin 11.1, hematocrit 32.9, platelets 168. Sodium 134, potassium 3.7, chloride 100, BUN 9, CO2 of 24, creatinine is 0.98. ASSESSMENT 1. Adjustment disorder with mixed mood. 2. Anxiety and depression. 3. Alcohol dependency/abuse. PLAN 1. To recommend total abstinence from alcohol and drugs. 2. Add BuSpar 5 mg p.o. 3 times a day p.r.n. 3. Add trazodone 50 mg p.o. q.h.s. p.r.n. 4. Continue Ativan p.r.n. p.o. 5. Discussed with nursing staff and patient regarding medication. 6. Supportive therapy. Thank you for this consultation. Dictated by: JOSE ANGEL Conrad Job#: [id number] SUB
[2017-09-07] MEDS ORDERED: TRAZODONE HCL 50 MG TAB PO PRN (21:00)
[2017-09-07] MEDS ORDERED: NIFEDIPINE CR 30 MG TAB PO SCH (21:00)
== END 2017-09-07 17:25 | disposition home or self-care (01) | DRG 641 ==
LOC: ER 10:06 → ERHOLD 13:20 → ICU 16:25 → MED/SURG2 09-03 20:57
PROVIDERS: ADMIT Internal Medicine; ATTEND Internal Medicine
DX: E87.1 Hypo-osmolality and hyponatremia (principal); S22.42XA Multiple fractures of ribs, left side, initial encounter for closed fracture; F10.288 Alcohol dependence with other alcohol-induced disorder; M62.82 Rhabdomyolysis; I16.1 Hypertensive emergency; E88.81 Metabolic syndrome and other insulin resistance; E87.6 Hypokalemia; G89.4 Chronic pain syndrome; I25.10 Atherosclerotic heart disease of native coronary artery without angina pectoris; Z95.5 Presence of coronary angioplasty implant and graft; F43.23 Adjustment disorder with mixed anxiety and depressed mood; K57.30 Diverticulosis of large intestine without perforation or abscess without bleeding; I25.2 Old myocardial infarction; K80.80 Other cholelithiasis without obstruction; K70.10 Alcoholic hepatitis without ascites; I10 Essential (primary) hypertension; K70.0 Alcoholic fatty liver; J32.9 Chronic sinusitis, unspecified; K21.9 Gastro-esophageal reflux disease without esophagitis; D50.9 Iron deficiency anemia, unspecified
CPT/HCPCS: 36415; 71045; 71046; 74177; 78227; 80048; 80053; 81001; 82140; 82150; 82390; 82550; 82553; 82607; 82728; 82746; 83540; 83690; 83735; 84100; 84466; 84484; 84550; 85025; 85045; 85610; 85730; 86039; 86255; 93005; 93306; 99284; A9537; J1170; J2405; J2805; J3411; J3480; J7030; Q9967

== ENCOUNTER 2019-09-21 13:18 | Inpatient (IN) | payer OTHER ==
[~2019-09-21] VITALS: Ht 175.3 cm; Wt 124.3 kg
[2019-09-21] MEDS ORDERED: DILTIAZEM HCL 5 MG/ML 5 ML VIAL IV NR (13:45)
[2019-09-21 14:21] LABS: EOSINOPHILS # (AUTO) 0.1 (0.0-0.4); EOSINOPHILS % 2.3 % (0.0-6.0); HEMATOCRIT 32.8 % (38.2-49.6); HEMOGLOBIN 10.4 g/dL (14.0-18.0); LYMPHOCYTES % 25.1 % (18.0-39.1); MEAN CORPUSCULAR HEMOGLOBIN 29.6 pg (28-32); MEAN CORPUSCULAR HGB CONC 31.7 g/dL (31-35); MEAN CORPUSCULAR VOLUME 93.4 fL (81-99); MONOCYTES # (AUTO) 0.4 (0.2-0.8); MONOCYTES % 9.3 % (4.4-11.3); NEUTROPHILS # (AUTO) 2.4 (2.1-6.9); NEUTROPHILS % 61.8 % (38.7-80.0); PLATELET COUNT 92 x10e3/uL (140-360); RED BLOOD COUNT 3.51 x10e6/uL (4.3-5.7); RED CELL DISTRIBUTION WIDTH 19.1 % (11.7-14.4)
--- NOTE | 2019-09-21 14:35 | Emergency Department Note ---
History of Present Illnes History of Present Illness Chief Complaint: General Medicine Complaints History of Present Illness This is a 59 year old male arrived to the ED after he was found to be in new onset a fib at his PCPs office. 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 Any updates have been documented here. Past Medical History Recent Fever: No Clinical Suspicion of Infectio: No New/Unexplained Change in Ment: No Past Medical History: Hypertension, [place], Migraines, Anxiety Other Medical History: Hemmorrhoids Diverticulitis BORDER LINE DIABETIC KENNEY'S SYNDROME Past Surgical History: Appendectomy, PCI, Colon Resection Other Surgery: ulnar surgery Other Last Tetanus: UTD Review of Systems Review of Systems Constitutional: Reports no symptoms EENTM: Reports no symptoms Cardiovascular: Reports as per HPI, Reports palpitations Respiratory: Reports no symptoms Gastrointestinal: Reports no symptoms Genitourinary: Reports no symptoms Musculoskeletal: Reports no symptoms Integumentary: Reports no symptoms Neurological: Reports no symptoms Psychological: Reports no symptoms Endocrine: Reports no symptoms Hematological/Lymphatic: Reports no symptoms Physical Exam Related Data Allergies: Coded Allergies: Penicillins (Verified Allergy, Intermediate, NAUSEA, RASH, 09/02/17) codeine (Verified Allergy, Intermediate, NAUSEA, RASH, 09/02/17) Triage Vital Signs Vital Signs Date Time Temp Pulse Resp B/P (MAP) Pulse Ox O2 Delivery O2 Flow Rate FiO2 09/21/19 13:26 98.4 109 16 103/74 100 Room Air Physical Exam CONSTITUTIONAL Constitutional: Present well-developed, Present well-nourished HENT HENT: Present normocephalic, Present atraumatic, Present oropharynx clear/p[facility], Present nose normal HENT L/R: Present left ext ear normal, Present right ext ear normal EYES Eyes: Reports PERRL, Reports conjunctivae normal NECK Neck: Present ROM normal PULMONARY Pulmonary: Present effort normal, Present breath sounds normal CARDIOVASCULAR Cardiovascular: Present irregular rhythm, Present heart sounds normal, Present capillary refill normal, Present normal rate GASTROINTESTINAL Abdominal: Present soft, Present nontender, Present bowel sounds normal GENITOURINARY Genitourinary: Present exam deferred SKIN Skin: Present warm, Present dry MUSCULOSKELETAL Musculoskeletal: Present ROM normal NEUROLOGICAL Neurological: Present alert, Present oriented x 3, Present no gross motor or sensory deficits PSYCHOLOGICAL Psychological: Present mood/affect normal, Present judgement normal Results Laboratory Result Diagram: 09/21/19 1401 Laboratory Laboratory Tests Test 09/21/19 14:01 White Blood Count 3.86 x10e3/uL (4.8-10.8) Red Blood Count 3.51 x10e6/uL (4.3-5.7) Hemoglobin 10.4 g/dL (14.0-18.0) Hematocrit 32.8 % (38.2-49.6) Mean Corpuscular Volume 93.4 fL (81-99) Mean Corpuscular Hemoglobin 29.6 pg (28-32) Mean Corpuscular Hemoglobin Concent 31.7 g/dL (31-35) Red Cell Distribution Width 19.1 % (11.7-14.4) Platelet Count 92 x10e3/uL (140-360) Neutrophils (%) (Auto) 61.8 % (38.7-80.0) Lymphocytes (%) (Auto) 25.1 % (18.0-39.1) Monocytes (%) (Auto) 9.3 % (4.4-11.3) Eosinophils (%) (Auto) 2.3 % (0.0-6.0) Basophils (%) (Auto) 1.0 % (0.0-1.0) Neutrophils # (Auto) 2.4 (2.1-6.9) Lymphocytes # (Auto) 1.0 (1.0-3.2) Monocytes # (Auto) 0.4 (0.2-0.8) Eosinophils # (Auto) 0.1 (0.0-0.4) Basophils # (Auto) 0.0 (0.0-0.1) Absolute Immature Granulocyte (auto 0.02 x10e3/uL (0-0.1) Lab results reviewed: Yes Laboratory comments Laboratory Tests Test 09/21/19 15:51 09/21/19 14:01 White Blood Count 3.86 x10e3/uL (4.8-10.8) Red Blood Count 3.51 x10e6/uL (4.3-5.7) Hemoglobin 10.4 g/dL (14.0-18.0) Hematocrit 32.8 % (38.2-49.6) Mean Corpuscular Volume 93.4 fL (81-99) Mean Corpuscular Hemoglobin 29.6 pg (28-32) Mean Corpuscular Hemoglobin Concent 31.7 g/dL (31-35) Red Cell Distribution Width 19.1 % (11.7-14.4) Platelet Count 92 x10e3/uL (140-360) Neutrophils (%) (Auto) 61.8 % (38.7-80.0) Lymphocytes (%) (Auto) 25.1 % (18.0-39.1) Monocytes (%) (Auto) 9.3 % (4.4-11.3) Eosinophils (%) (Auto) 2.3 % (0.0-6.0) Basophils (%) (Auto) 1.0 % (0.0-1.0) Neutrophils # (Auto) 2.4 (2.1-6.9) Lymphocytes # (Auto) 1.0 (1.0-3.2) Monocytes # (Auto) 0.4 (0.2-0.8) Eosinophils # (Auto) 0.1 (0.0-0.4) Basophils # (Auto) 0.0 (0.0-0.1) Absolute Immature Granulocyte (auto 0.02 x10e3/uL (0-0.1) Sodium Level 136 mmol/L (136-145) Potassium Level 4.9 mmol/L (3.5-5.1) Chloride Level 105 mmol/L (98-107) Carbon Dioxide Level 16 mmol/L (22-29) Anion Gap 19.9 mmol/L (8-16) Blood Urea Nitrogen 19 mg/dL (7-26) Creatinine 1.78 mg/dL (0.72-1.25) Estimat Glomerular Filtration Rate 39 ML/MIN (60-) BUN/Creatinine Ratio 11 (6-25) Glucose Level 90 mg/dL (74-118) Calcium Level 9.0 mg/dL (8.4-10.2) Total Bilirubin 0.9 mg/dL (0.2-1.2) Aspartate Amino Transf (AST/SGOT) 57 IU/L (5-34) Alanine Aminotransferase (ALT/SGPT) 26 IU/L (0-55) Alkaline Phosphatase 214 IU/L (40-150) Creatine Kinase 113 IU/L (30-200) Creatine Kinase MB 1.40 ng/mL (0-5.0) Troponin I < 0.001 ng/mL (0-0.300) Total Protein 7.0 g/dL (6.5-8.1) Albumin 3.5 g/dL (3.5-5.0) Globulin 3.5 g/dL (2.3-3.5) Albumin/Globulin Ratio 1.0 (0.8-2.0) Thyroid Stimulating Hormone (TSH) 2.347 uIU/mL (0.350-4.940) Free Thyroxine Index 2.4570 (1.4-3.8) Thyroxine (T4) 7.82 ug/dL (4.5-10.9) Triiodothyronine (T3) Uptake 31.42 % (22.5-37.0) Imaging Imaging results reviewed: Yes Procedures 12 Lead ECG Interpretation ECG Interpretation : ECG: ECG 1 Mellowing Machine Operator: Interpreted by ED physician Rhythm: atrial fibrillation Rate: tachycardia QRS axis: normal Clinical Impression: abnormal ECG Assessment & Plan Medical Decision Making MDM 59 yo M arrived to the ED after being found in A fib with RVR at her PCPs office. Patient given Cardizem in the ED with improvement of heart rate noted. Patient admitted for further evaluation. Assessment & Plan Final Impression: (1) Atrial fibrillation Depart Disposition: ADMITTED Last Vital Signs Date Time Temp Pulse Resp B/P (MAP) Pulse Ox O2 Delivery O2 Flow Rate FiO2 09/21/19 13:26 98.4 109 16 103/74 100 Room Air Home Meds Reported Medications [Tylenol ] No Conflict Check, 325 MG PO PRN 05/10/17 Dexlansoprazole (DEXILANT) 60 Mg Joe., 60 MG PO DAILY THERAPEUTIC INTERCHANGE WITH PROTONIX PER [facility] 05/10/17 Aspirin (ASPIR 81) 81 Mg Tablet., 81 MG PO DAILY 10/23/13 Nebivolol Hcl (BYSTOLIC) 10 Mg Tablet, 10 MG PO BEDTIME 06/29/13 Medications in the ED Diltiazem HCl 20 mg ONCE IV ; Start 09/21/19 at 13:45; Stop 09/21/19 at 14:59 Enoxaparin Sodium 60 mg Q12HR SC ; Start 09/21/19 at 21:00; Stop 09/28/19 at 20:59 MARIE SANDERSON, Sep 21, 2019 14:35
[2019-09-21 14:42] LABS: ALANINE AMINOTRANSFERASE 26 IU/L (0-55); ALBUMIN 3.5 g/dL (3.5-5.0); ALKALINE PHOSPHATASE 214 IU/L (40-150); ANION GAP 19.9 mmol/L (8-16); BLOOD UREA NITROGEN 19 mg/dL (7-26); BUN/CREATININE RATIO 11 (6-25); CARBON DIOXIDE 16 mmol/L (22-29); CHLORIDE 105 mmol/L (98-107); CREATINE KINASE 113 IU/L (30-200); CREATININE, SERUM 1.78 mg/dL (0.72-1.25); EST GLOMERULAR FILTRATION RATE 39 ML/MIN (60-); GLUCOSE 90 mg/dL (74-118); POTASSIUM 4.9 mmol/L (3.5-5.1); SODIUM 136 mmol/L (136-145)
--- NOTE | 2019-09-21 15:20 | Diagnostic Imaging Report ---
EXAMINATION: CHEST SINGLE (PORTABLE) INDICATION: Atrial fibrillation COMPARISON: Chest radiograph 09/03/2017 FINDINGS: LINES/TUBES:EKG leads overlie the chest. LUNGS:The lungs are well-inflated. No focal consolidation or pulmonary edema. PLEURA:No pleural effusion or pneumothorax. MEDIASTINUM:The cardiomediastinal silhouette appears normal in size and shape. BONES/SOFT TISSUES:No acute osseous injury. ABDOMEN:No free air under the diaphragm. IMPRESSION: No focal pneumonia or pulmonary edema. Signed by: Marcela Cain MD on 09/21/2019 3:17 PM
--- OUTSIDE RECORDS SUMMARY | 2019-09-21 15:23 | XMS REPORT | Clinical Summary ---
Author Author DEVANTE [facility] Address Unknown Phone Unavailable Care Team Providers Care Animal Trainer Name Role Phone PCP Unavailable Allergies Not on File Medications Not on file Active Problems Not on file Social History Date Tobacco Use Types Packs/Day Years Used Never Assessed Sex Assigned at Date Recorded Not on file Industry Job Start Date Occupation Not on file Not on file Not on file Travel End Travel History Travel Start No recent travel history available. Last Filed Vital Signs Not on file Plan of Treatment Not on file Results Not on fileafter 09/20/2018 Insurance Payer Benefit Subscriber ID Type Phone Address Plan / Group [employer] - [place] CARE [employer] xxxxxxxxxxx HMO/POS HMO/POS/OP EN ACCESS [id number]
--- OUTSIDE RECORDS SUMMARY | 2019-09-21 15:23 | XMS REPORT | Continuity of Care Document ---
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 [facility] Anemia (disorder) Active 04/24/2014 Problem 07/17/2017 Data migrated from [employer] on . [facility] Cyst of epididymis (disorder) Active 04/24/2014 Problem 07/17/2017 Data migrated from [employer] on . [facility] Elevated levels of transaminase & lactic acid dehydrogenase (finding) Active 04/24/2014 Problem 07/17/2017 Data migrated from [employer] on 08/15/14. [facility] Hearing loss (finding) Active 04/24/2014 Problem 07/17/2017 Data migrated from [employer] on . [facility] Hyperglycemia (disorder) Active 04/24/2014 Problem 07/17/2017 Data migrated from [employer] on . [facility] Hypertriglyceridemia (disorder) Active 04/24/2014 Problem 07/17/2017 Data migrated from [employer] on . [facility] Hypokalemia (disorder) Active 04/24/2014 Problem 07/17/2017 Data migrated from [employer] on . ERICK Salomon,[facility] Obesity (disorder) Active 04/24/2014 Problem 07/17/2017 Data migrated from [employer] on . ERICK Salomon,[facility] Myocardial infarction (disorder) Resolved 02/09/2004 Problem 07/17/2017 [facility] Spinal stenosis, cervical region 07/17/2017 [facility] Other spondylosis with radiculopathy, cervical region 07/17/2017 [facility] Low back pain 07/17/2017 [facility] Other intervertebral disc degeneration, lumbar region 07/17/2017 [facility] Spondylosis without myelopathy or radicu lopathy, lumbar region 07/17/2017 [facility] Alcoholism (disorder) Resolved Problem 07/17/2017 [facility] Anxiety (finding) Active Problem 07/17/2017 [facility] Coronary arteriosclerosis (disorder) Active Problem 10[facility]2017 [facility]verticulitis ([facility]order) Acti ve Problem 10/2017 [facility] Hypercholesterolemia (disorder) Active Problem 10/2017 [facility] Hypertensive disorder, systemic arterial (disorder) Active Problem 07/17/2017 [facility] Medications No Data Provided for This Section Allergies, Adverse Reactions, Alerts Substance Category Reaction Severity Reaction type Status Date Reported Comments Source penicillins<sup>1</sup> Assert ion Drug aller gy Active 04/24/2014 Data migrated from [employer] on 09/07/14. Originally documented as PENICILLIN. [facility] codeine<sup>2, 3</sup> Asserti on Drug aller gy Active 04/24/2014 Data migrated from [employer] on 04/29/15. Originally documented as CODEINE. Data migrated from [employer] on 04/12/15. Originally documented as CODEINE. [facility] codeine<sup>1</sup> Assertion Drug allergy Active 04/24/2014 Data migrated from [employer] on 04/12/15. Originally documented as CODEINE. ERICK Salomon penicillins<sup>2</sup> Assert ion Drug aller gy Active 04/24/2014 Data migrated from [employer] on 09/07/14. Originally documented as PENICILLIN. ERICK Salomon Immunizations Immunization Date Given Site Status Last Updated Comments Source diphtheria/pertussis, acel/tetanus adult 09/14/2016 Left ventragluteal completed [facility] Results No Data Provided for This Section Pathology Reports No Data Provided for This Section Diagnostic Reports Report Value Date Source Spine lumbar wo contrast MRI C linical Indication: lower back pain - Comparison: None. TECHNIQUE: Multiplanar T1, T2, STIR weighted noncontrast MRI of the lumbar spine is performed. FINDINGS: There is lumbar lordosis. The vertebral body heights and alignment are maintained. The bone marrow signal is within normal limits. The conus terminates at L1. The distal cord is normal in size and signal characteristics. At T12-L1 there is no disc herniation, spinal canal stenosis or foraminal narrowing. At L1-L2 there is no disc herniation, spinal canal stenosis or foraminal narrowing. At L2-L3 there is no significant disc herniation. There is bilateral facet joint arthropathy and ligamentum flavum hypertrophy. There is no significant spinal canal stenosis. There is mild left neural foraminal narrowing. The right neural foramen is widely patent. At L3-L4 there is no significant disc herniation, spinal canal stenosis or foraminal narrowing. Mild bilateral facet joint arthropathy seen. At L4-L5 findings there is a minimal disc bulge with bilateral facet joint arthropathy without significant spinal canal stenosis or foraminal narrowing. Mild bilateral facet joint arthropathy is noted. At L5-S1 there is a minimal disc bulge without significant spinal canal stenosis or foraminal narrowing. There is bilateral facet joint arthropathy. IMPRESSION: No fracture or subluxation. Mild degenerative changes. At L2-L3 there is mild left neural foraminal narrowing without significant spinal canal stenosis. SL: [id number]-M 04/10/2017 [facility] Spine cervical wo contrast MRI Clinical Indication: Radiculopathy - Comparison: None. TECHNIQUE: Multiplanar T1, T2, and STIR weighted MRI of the cervical spine is performed. FINDINGS: There is a straightening of the cervical spine. The vertebral body heights and alignment are maintained. There is a T1 hypointense and T2 hyperintense lesion in C6 vertebral body which is nonspecific and may represent a hemangioma. The bilateral vertebral arterial flow voids are visualized. The soft tissues of the neck are grossly unremarkable. There is no prevertebral soft tissue swelling or signal abnormality. The visualized posterior fossa is unremarkable. The cervical cord is normal in size and signal characteristics. At C2-C3 there is no disc herniation, spinal canal stenosis or foraminal narrowing. At C3-C4 there is a mild disc bulge with uncovertebral hypertrophy without significant spinal canal stenosis. There is mild bilateral neural foraminal narrowing, left greater than the right. At C4-C5 there is a disc osteophyte complex with uncovertebral hypertrophy and facet joint arthropathy causing mild spinal canal stenosis, mild right and moderate left neural foraminal narrowing. At C5-C6 there is a disc bulge with uncovertebral hypertrophy and facet joint arthropathy without significant spinal canal stenosis. There is moderate bilateral neural foraminal narrowing. At C6-C7 there is a disc osteophyte complex with bilateral facet joint arthropathy and ligamentum flavum hypertrophy causing moderate spinal canal stenosis and mild right neural foraminal narrowing. At C7-T1 there is no disc herniation, spinal canal stenosis or foraminal narrowing. IMPRESSION: Multilevel degenerative changes as described. At C6-C7 there is moderate spinal canal stenosis and mild right neural foraminal narrowing. At C5-C6 there is moderate bilateral neural foraminal narrowing without significant spinal canal stenosis. At C4-C5 there is mild spinal canal stenosis, mild right and moderate left neural foraminal narrowing. SL: FARHANAUSTAFA-Jeny 04/10/2017 [facility] Sinus paranasal series DX SINU S X-RAY SERIES 3 VIEWS Clinical History: 54-year-old male with sinusitis. Findings: The right maxillary sinus is partially opacified, mildly improved compared to prior exams. Other paranasal sinuses appear clear. Osseous structures are grossly normal. The nasal septum is not deviated. Impression: Right maxillary sinus is partially opacified, mild improved compared to prior exams. SINUS X-RAY SERIES Clinical History: 54-year-old male with sinusitis. Findings: The right maxillary sinus is partially opacified, mildly improved compared to prior exams. Other paranasal sinuses appear clear. Osseous structures are grossly normal. The nasal septum is not deviated. Impression: Right maxillary sinus is partially opacified, mild improved compared to prior exams. 04/15/2015 ERICK Salomon Sinus paranasal series DX Exam : Paranasal sinus x-ray series Reason for Exam: Sinus. Facial pain. Comparison Exam: X-ray 08/07/2009 Discussion: The right maxillary sinus appears largely opacified. This was also present on comparison x-ray. The surrounding osseous structures are intact. No suspicious osteoblastic or osteolytic lesions. If there is further clinical concern, a dedicated CT scan should be considered. Impression: 1. The right maxillary sinus appears la rgely opacified. This was also present on comparison x-ray. 11/08/2014 [facility] [place] Chest 2 views DX Exam: Two-vie w chest x-ray Reason for Exam: Cough Comparison Exam: None Discussion: Cardiomediastinal silhouette is within normal limits. Both hemidiaphragms well visualized. No pulmonary edema or pleural effusions. Mild atelectasis seen within the left lung base. Trachea is midline. No acute bony abnormalities. Impression: 1. Mild atelectasis seen within the lef t lung base. 11/08/2014 [facility] [place] Consultation Notes No Data Provided for This Section Discharge Summaries No Data Provided for This Section History and Physicals No Data Provided for This Section Vital Signs No Data Provided for This Section Encounters Location Location Details Encounter Type Encounter Number Reason For Visit Attending Provider ADM Date DC Date Status Source [facility] [place] [facility] [id number] 01 Dary Garciaerte 11/08/2014 11/09/2014 [facility] [place] [facility] [place] [facility] [id number] Dary CleaningRobert 04/15/2015 04/16/2015 [facility] [place] Outpatient [id number] NADINE KAUR 12/11/2015 [facility] Outpatient [id number] MARU ORTIZ 09/14/2016 [facility] Outpatient [id number] Dary Garciaerte 04/10/2017 04/11/2017 [facility] Outpatient [id number] [facility] 04/08/2018 [facility] Outpatient [id number] [facility] 04/29/2018 [facility] Procedures Procedure Code Date Perfomer Comments Source Colon operation<sup>1</sup> [id number] 10/09/2013 Colon Resection and raptured colon [facility] Colonoscopy [id number] 02/08/2013 [facility] Stent placement<sup>2</sup> 10 [id number] 02/09/2004 CAD [facility] Hemorrhoids - ligate/excise 28 [id number] 02/08/1990 [facility] Appendectomy [id number] 02/08/1969 [facility] Tonsillectomy [id number] 02/09/1964 [facility] Sinusectomy and turbinectomy 4 [id number] [facility] Assessment and Plan No Data Provided for This Section Plan of Care No Data Provided for This Section Social History Social History Date Source Social History TypeResponse Sexual 1 Exercise Exercise frequency: 3-4 times/week. Exercise type: climbing, stairs at work. Employment/School Status: Employed. 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 Other: , 3 daughters (adopted). Alcohol Current, Type Beer. Frequency: 3-5 times per week. Smoking Status Former smoker; Type: Cigars; Previous treatment: None; Lives with someone who smokes; Cigarette Smoking Last 365 Days No; Reg Smoking Cessation Counseling No; Number of years: 10; Started at age: 34.0; Stopped at age: 44; entered on: 09/16/16 1Married 12/11/2015 [facility] No data available for this section 04/16/2015 ERICK Salomon Family History No Data Provided for This Section Advance Directives No Data Provided for This Section Functional Status No Data Provided for This Section
--- OUTSIDE RECORDS SUMMARY | 2019-09-21 15:23 | XMS REPORT | Continuity of Care Document ---
Author Author [facility] t Organization [facility] Address [address] [place] [address] [address] [place] [address] Phone Unavailable Care Team Providers Care Vice President Of Communications Name Role Phone PARTH PACHECO MD PCP Estephania SANDERSON Attphys Unavailable SEBASTIAN GIORDANO Attphys Unavailable MT, RYLEE Attphys Unavailable Parth Pacheco Attphys SCOOBY ZAIDI Attphys Unavailable NITA HOWELL Admphys Unavailable MT, RYLEE Admphys Unavailable DACCAKLULY Admphys Unavailable Payers Payer Name Policy Type Policy Number Effective Date Expiration Date Estephania [place] Ppo [id number] 2007 00:00:00 DEVANTE Wood [facility] Problems Condition Name Condition Details Condition Category Status Onset Date Resolution Date Last Treatment Date Treating Clinician Comments Source M54.10, I25.10 STENTS M5 4.10, I25.10 STENTS Active 04/01/2017 [facility] Active 2017-04-01 00:00:00 2017-04-10 14:50:00 Dudley Arteaga R05 - COUGH R05 - COUGH Active 11/08/2014 [facility] [place] Diagnosis Active 2014-11-08 00:01:00 2014-11-08 10:57:00 Dudley Arteaga Alcohol abuse (disorder) Alco hol abuse (disorder) Active 04/24/2014 Problem 07/17/2017 Data migrated from [facility] on 08/15/14. [facility] [place],[facility] Problem Active 2014-04-24 00:00:00 2017-07-17 11:24:19 [facility] Anemia (disorder) Anem ia (disorder) Active 04/24/2014 Problem 07/17/2017 Data migrated from [employer] on 08/15/14. SRINI Salomon [facility] Problem Active 2014-04-24 00:00:00 2017-07-17 11:24:19 [facility] Cyst of epididymis (disorder) Cyst of epididymis (disorder) Active 04/24/2014 Problem 07/17/2017 Data migrated from [employer] on 08/15/14. ERICK Salomon [place] Problem Active 2014-04-24 0 0:00:00 2017-07-17 11:24:19 [facility] Elevated levels of transaminase & lactic acid dehydrog enase (finding) Elevated levels of transaminase & lactic acid dehydrogenase (finding) Active 04/24/2014 Problem 07/17/2017 Data migrated from [employer] on 08/15/14. ERICK Salomon [facility] Problem Active 2014-04-24 0 0:00:00 2017-07-17 11:24:19 [facility] Hearing loss (finding) Hear ing loss (finding) Active 04/24/2014 Problem 07/17/2017 Data migrated from [employer] on 08/15/14. CHARLYErnestina Umm [facility] Problem Active 2014-04-24 00:00:00 2017-07-17 11:24:19 [facility] Hyperglycemia (disorder) Hype rglycemia (disorder) Active 04/24/2014 Problem 07/17/2017 Data migrated from [employer] on 08/15/14. CHARLYErnestina Umm [facility] Problem Active 2014-04-24 00:00:00 2017-07-17 11:24:19 [facility] Hypertriglyceridemia (disorder) Hypertriglyceridemia (disorder) Active 04/24/2014 Problem 07/17/2017 Data migrated from [employer] on 08/15/14. CHARLYErnestina Umm [facility] Problem Active 2014-04-24 0 0:00:00 2017-07-17 11:24:19 [facility] Hypokalemia (disorder) Hypo kalemia (disorder) Active 04/24/2014 Problem 07/17/2017 Data migrated from [employer] on 08/15/14. CHARLYErnestina Umm [facility] Problem Active 2014-04-24 00:00:00 2017-07-17 11:24:19 Dudley [place] Obesity (disorder) Obes ity (disorder) Active 04/24/2014 Problem 07/17/2017 Data migrated from [facility] on 08/15/14. ERICK Salomon [facility] Problem Active 2014-04-24 00:00:00 2017-07-17 11:24:19 Dudley [place] Lower gastrointestinal hemorrhage Lower GI bleed Problem Active [facility] Alcohol withdrawal syndrome Withdrawal symptoms, alcohol Problem Active [facility] Spinal stenosis, cervical region Spinal stenosis, cervical region 07/17/2017 [facility] Problem 11:24:19 [facility] [place] Other spondylosis with radiculopathy, cervical region Other spondylosis with radiculopathy, cervical region 07/17/2017 [facility] Problem 2017-07-17 11:24:19 Dudley Chandler Low back pain Low back pain 07/17/2017 [facility] Problem 2017-07-17 11:24:19 [facility] Other intervertebral disc degeneration, lumbar region Other intervertebral disc degeneration, lumbar region 07/17/2017 [facility] Problem 2017-07-17 11:24:19 [facility] Spondylosis without myelopathy or radiculopathy, lumba r region Spondylosis without myelopathy or radiculopathy, lumbar region 07/17/2017 [facility] Problem 2017-07-17 11:24:19 [facility] Alcoholism (disorder) Alco holism (disorder) Resolved Problem 07/17/2017 [facility] Problem Resolved 2017-07-17 11:24: 19 [facility] Anxiety (finding) Anxi ety (finding) Active Problem 07/17/2017 [facility] Problem Active 2017-07-17 11:24:19 [facility] Coronary arteriosclerosis (disorder) Coronary arteriosclerosis (disorder) Active Problem 07/17/2017 CHARLYErnestina Gilliamjenny [facility] Problem Active 2017-07-17 11:24:19 Anant Arteaga Diverticulitis (disorder) Dive rticulitis (disorder) Active Problem 07/17/2017 [facility] Problem Active 2017-07-17 11:2 4:19 [facility] [place] Hypercholesterolemia (disorder) Hypercholesterolemia (disorder) Active Problem 07/17/2017 [facility] Problem Active 2017-07-17 11:24:19 [facility] Hypertensive disorder, systemic arterial (disorder) Hypertensive disorder, systemic arterial (disorder) Active Problem 07/17/2017 [facility] Problem Active 2017-07-17 11:24:19 Dudley Arteaga Cervical disc disorder at C4-C5 level with radiculopat hy Cervical disc disorder at C4-C5 level with radiculopathy 04/23/2017 07/17/2017 [facility] Problem 2017-04-23 03:32:36 2017-07-17 11:24:19 2017-07 11:24:19 Dudley [place] History of Past Illness Condition Name Condition Details Condition Category Status Onset Date Resolution Date Last Treatment Date Treating Clinician Comments Source Myocardial infarction (disorder) Myocardial infarction (disorder) Resolved 02/09/2004 Problem 07/17/2017 [facility] Problem Resolved 2004-02-09 00:00:00 2017-07-17 11:24:19 2017-07-17 11:24:19 Dudley [place] Allergies, Adverse Reactions, Alerts Allergy Name Allergy Type Status Severity Reaction(s) Onset Date Inacti ve Date Treating Clinician Comments Source Penicillin Allergy to Substance Active Moderate NAUSEA, RASH 20 25-08-25 00:00:00 [facility] Codeine Allergy to Substance Active Moderate NAUSEA, RASH 2017-09-02 00 :00:00 [facility] penicillins<sup>1</sup> penicillins<sup>1</sup> Active 2014-04-24 05:00:00 [facility] codeine<sup>1</sup> codeine<sup>1</sup> Active 2014-04-24 0 5:00:00 [facility] penicillins<sup>2</sup> penicillins<sup>2</sup> Active 2014-04-24 05:00:00 [facility] Social History Social Habit Start Date Stop Date Quantity Comments Source Sex Assigned At [facility] Social History 2015-04-16 05:59:00 2015-04-16 05:59:00 [facility] Medications Ordered Medication Name Filled Medication Name Start Date Stop Da te Current Medication? Ordering Clinician Indication Dosage Frequency Signature (SIG) Comments Components Source Aspirin (Aspir 81) 81 Mg Tablet. Aspirin (Aspir 81) 81 Mg Tablet.dr Esqueda 81 Daily [facility] Dexlansoprazole (Dexilant) 60 Mg Cap. Dexlansopra zole (Dexilant) 60 Mg Cap. Yes [address] [facility] Nebivolol Hcl (Bystolic) 10 Mg Tablet Nebivolol Hcl (Bystolic) 10 M g Tablet Yes 10 Bedtime [facility] Tylenol Tylenol Yes 325 As Needed [facility] Ezetimibe (Zetia) 10 Mg Tablet, 10 Mg Oral Ezetimibe ( Zetia) 10 Mg Tablet, 10 Mg Oral 2017-09-07 00:00:00 No 10 Bedtime [facility] Fenofibric Acid (Choline) (Trilipix) 135 Mg Capsule. , 135 Mg Oral Fenofibric Acid (Choline) (Trilipix) 135 Mg Capsule., 135 Mg Oral 201 09-14-30 00:00:00 No 135 Daily [facility] Rosuvastatin Calcium (Crestor) 20 Mg Tablet, 20 Mg Ora l Rosuvastatin Calcium (Crestor) 20 Mg Tablet, 20 Mg Oral 2017-09-07 00:00:00 No 2 0 Daily [facility] Valsartan/Hydrochlorothiazide (Diovan Hc t 320-25 Mg Tablet) 1 Each Tablet, 1 Tab Oral Valsartan/Hydrochlorothiazide (Diovan Hc t 320-25 Mg Tablet) 1 Each Tablet, 1 Tab Oral 2017-09-07 00:00:00 No 1 Daily [facility] Esomeprazole Magnesium (Nexium) 40 Mg Capsule., 40 M g Oral Esomeprazole Magnesium (Nexium) 40 Mg Capsule., 40 Mg Oral 2017-05-10 00:00:00 No 40 Daily [facility] Fe Fumarate/Fa/Mv, Min Comb#15 (Hemocyte Plus Capsule) 1 Each Capsule, 1 Tab Oral Fe Fumarate/Fa/Mv, Min Comb#15 (Hemocyte Plus Capsule) 1 Each Capsule, 1 Tab Oral 2017-05-10 00:00:00 No 1 Twice A Day [facility] Valsartan/Hydrochlorothiazide (Diovan Hc t 160-12.5 Mg Tab) 1 Each Tablet, 1 Tab Oral Valsartan/Hydrochlorothiazide (Diovan Hc t 160-12.5 Mg Tab) 1 Each Tablet, 1 Tab Oral 2017-05-10 00:00:00 No 1 Daily [facility] Hydrocodone Bit/Acetaminophen ([place] 7.5-325 Tablet) 1 Each Tablet, Oral Hydrocodone Bit/Acetaminophen ([place] 7.5-325 Tablet) 1 Each Tablet, Oral 2013-11-01 00:00:00 No Every 4 Hours [facility] Levofloxacin (Levaquin) 500 Mg Tablet, 500 Mg Oral Lev ofloxacin (Levaquin) 500 Mg Tablet, 500 Mg Oral 2013-10-23 00:00:00 No 500 D aily [facility] Metronidazole (Flagyl) 500 Mg Tablet, 500 Mg Oral Metr onidazole (Flagyl) 500 Mg Tablet, 500 Mg Oral 2013-10-23 00:00:00 No 500 David y [facility] Aspirin (Aspir 81) 81 Mg Tablet., 81 Mg Oral Aspirin (Aspir 81) 81 Mg Tablet., 81 Mg Oral 2013-06-29 00:00:00 No 81 Da jesse [facility] Esomeprazole Magnesium (Nexium) 40 Mg Capsule., 40 M g Oral Esomeprazole Magnesium (Nexium) 40 Mg Capsule.dr, 40 Mg Oral 2013-06-29 00:00:00 No 40 Daily [facility] Ezetimibe (Zetia) 10 Mg Tablet, 10 Mg Oral Ezetimibe ( Zetia) 10 Mg Tablet, 10 Mg Oral 2013-06-29 00:00:00 No 10 [facility] Fenofibric Acid (Choline) (Trilipix) 135 Mg Capsule. , 135 Mg Oral Fenofibric Acid (Choline) (Trilipix) 135 Mg Capsule., 135 Mg Oral 201 05-13-21 00:00:00 No 135 Daily [facility] Fexofenadine Hcl (Roxana Allergy) 60 Mg Tablet, 1 Tab Oral Fexofenadine Hcl (Roxana Allergy) 60 Mg Tablet, 1 Tab Oral 2013-06-29 00:00:00 No 1 Daily Prn [facility] Rosuvastatin Calcium (Crestor) 20 Mg Tablet, 20 Mg Ora l Rosuvastatin Calcium (Crestor) 20 Mg Tablet, 20 Mg Oral 2013-06-29 00:00:00 No 2 0 Daily [facility] Procedures Procedure Date / Time Performed Performing Clinician Clarissa mendez Computed tomography of abdomen and pelvis with contrast 2017 00:00:00 [facility] X-ray of chest, two views 2017-09-02 00:00:00 ALEXANDRO APRIL I [facility] REVISE ULNAR NERVE AT ELBOW 2017-05-11 00:00:00 REED PATINO [facility] EXCISION OF ILEUM, ENDO, DIAGN 2016-11-17 00:00[facility]00 [facility] EXCISION OF DUODENUM, ENDO, DIAGN 2016-11-17 00:00:00 [facility] EXCISION OF LOWER ESOPHAGUS, ENDO, DIAGN 2016-11-17 00:00:00 DAC CA, [facility] EXCISION OF STOMACH, ENDO, DIAGN 2016-11-17 00:00:00 [facility] Loli REA [facility] EXCISION OF STOMACH, PYLORUS, ENDO, DIAGN 2016-11-17 00:00:00 DA CCAK, [facility] CT of abdomen and pelvis without contrast 2016-11-13 00:00:0 0 Monserrat'SHARAN CAMPOS [facility] Colon operation<sup>1</sup> 2013-10-09 05:00:00 [facility] Colonoscopy 2013-02-08 00:00:00 [facility] Stent placement<sup>2</sup> 2004-02-09 00:00:00 [facility] Hemorrhoids - ligate/excise 1990-02-08 00:00:00 [facility] Appendectomy 1969-02-08 00:00:00 [facility] Tonsillectomy 1964-02-09 00:00:00 [facility] [place] Encounters Start Date/Time End Date/Time Encounter Type Admission Type Attendi Clinicians Care Facility Care Department Encounter ID Source 2017-09-02 13:20:00 2017-09-07 17:25:00 Discharged Inpatient 1 RYLEE AMOR [facility] [id number] [facility] 2017-05-11 05:18:00 2017-05-11 05:18:00 Registered [facility] [id number] [facility] 2017-04-10 14:41:00 2017-04-10 23:59:00 Outpatient Thao PachecoSE [facility] [id number] 2016-11-13 21:30:00 2016-11-18 10:35:00 Discharged Inpatient ER SCOOBY AZIDI [facility] [id number] [facility] 2015-04-15 08:47:00 2015-04-15 23:59:00 Outpatient Parth Pacheco [facility] M[facility] [id number] 2014-11-08 10:47:00 2014-11-08 23:59:00 Outpatient Parth Pacheco HOIP MHHOIP [id number] Results Test Description Test Time Test Comments Results Result Comments Source CHEST SINGLE (PORTABLE) 2019-09-21 15:16:00 [facility] [address] [place] [address] Patient Name: SHEFALI HERMAN MR #: [id number] : 1960 Age/Sex: 59/M Req #: [id number] Adm Physician: Ordered by: MARIE SANDERSON DO Report #: [id number] Location: ER Room/Bed: Procedure: [id number] DX/CHEST SINGLE (PORTABLE) Exam Date: 09/21/19 Exam Time: 1425 REPORT STATUS: Signed EXAMINATION: CHEST SINGLE (PORTABLE) INDICATION: Atrial fibrillation COMPARISON: Chest radiograph 09/03/2017 FINDINGS: LINES/TUBES:EKG leads overlie the chest. LUNGS:The lungs are well-inflated. No focal consolidation or pulmonary edema. PLEURA:No pleural effusion or pneumothorax. MEDIASTINUM:The cardiomediastinal silhouette appears normal in size and shape. BONES/SOFT TISSUES:No acute osseous injury. ABDOMEN:No free air under the diaphragm. IMPRESSION: No focal pneumonia or pulmonary edema. Signed by: Jeffrey Stafford MD on 09/21/2019 3:17 PM Dictated By: JEFFREY STAFFORD MD 16 Transcribed By: FLOWER on 09/21/191516 COPY TO: MARIE SANDERSON DO D-DIMER 2018-02-18 10:32:00 Test Item D-DIMER QUANTITATIVE (BEAKER) (test code = 671) 0.88 MG/L FEU <0.50 H Intended Use: The D-Dimer Assay can be used to aid in the diagnosis of Deep Vein Thrombosis (DVT) and Pulmonary Embolism Disease (PED).In patients with low pre- test probability, various studies concerning STA Liatest D-dimer test have repor madelin that with a cutoff value of 0.50 MG/L FEU, the Negative Predictive Value (PHARMACY ASSISTANT V) regarding the exclusion of thrombosis is within 95-100% range.White Blood [id number] 07:03:00* Test Item Value Reference Range Interpretation Comments White Blood Count (test code = 6690-2) 3.62 4.8-10.8 L [facility] Dallas[facility] Blood [id number] 07:03:00* Test Item Value Reference Range Interpretation Comments Red Blood Count (test code = 789-8) 3.64 4.3-5.7 L [facility] Dallas[facility]emoglobin2018-07-31 07:03:00* Test Item Value Reference Range Interpretation Comments Hemoglobin (test code = 06191-8) 11.1 14.0-18.0 L [facility] Dallas[facility]ematocrit2018-07-31 07:03:00* Test Item Value Reference Range Interpretation Comments Hematocrit (test code = 4544-3) 32.9 38.2-49.6 L [facility] DallasMean Corpuscular Uvmcbu5363-01-18 07:03:00* Test Item Value Reference Range Interpretation Comments Mean Corpuscular Volume (test code = 787-2) 90.4 81-99 [facility] DallasMean Corpuscular Mcunaximec3236-67-75 07:03:00* Test Item Value Reference Range Interpretation Comments Mean Corpuscular Hemoglobin (test code = 785-6) 30.5 28-32 [facility] DallasMean Corpuscular Hemoglobin Concent 2017-09-07 07:03:00* Test Item Value Reference Range Interpretation Comments Mean Corpuscular Hemoglobin Concent (test code = 786-4) 33.7 31-35 [facility] Dallas[facility] Cell Distribution [id number] 07:03:00* Test Item Value Reference Range Interpretation Comments Red Cell Distribution Width (test code = 00301-3) 14.0 11.7 -14.4 [facility] DallasPlatelet Viwmt5035-82-56 07:03:00* Test Item Value Reference Range Interpretation Comments Platelet Count (test code = 777-3) 168 140-360 [facility] DallasNeutrophils (%) (Auto)2017-09-07 07:03:00 * Test Item Value Reference Range Interpretation Comments Neutrophils (%) (Auto) (test code = 94584-2) 57.2 38.7-80.0 [facility] DallasLymphocytes (%) (Auto)2017-09-07 07:03:00 * Test Item Value Reference Range Interpretation Comments Lymphocytes (%) (Auto) (test code = 736-9) 24.3 18.0-39.1 [facility] Dallas[facility]ocytes (%) (Auto)2017-09-07 07:03:00* Test Item Value Reference Range Interpretation Comments Monocytes (%) (Auto) (test code = 5905-5) 14.9 4.4-11.3 H [facility] Dallas[facility]osinophils (%) (Auto)2017-09-07 07:03:00 * Test Item Value Reference Range Interpretation Comments Eosinophils (%) (Auto) (test code = 713-8) 1.7 0.0-6.0 [facility] Dallas[facility]ophils (%) (Auto)2017-09-07 07:03:00* Test Item Value Reference Range Interpretation Comments Basophils (%) (Auto) (test code = 706-2) 0.8 0.0-1.0 [facility] DallasIM GRANULOCYTES %2017-09-07 07:03:00* Test Item Value Reference Range Interpretation Comments IM GRANULOCYTES % (test code = IM GRANULOCYTES %) 1.1 0.0- 1.0 H [facility] DallasNeutrophils # (Auto)2017-09-07 07:03:00* Test Item Value Reference Range Interpretation Comments Neutrophils # (Auto) (test code = 751-8) 2.1 2.1-6.9 [facility] DallasLymphocytes # (Auto)2017-09-07 07:03:00* Test Item Value Reference Range Interpretation Comments Lymphocytes # (Auto) (test code = 07967-1) 0.9 1.0-3.2 L [facility] DallasMonocytes # (Auto)2017-09-07 07:03:00* Test Item Value Reference Range Interpretation Comments Monocytes # (Auto) (test code = 742-7) 0.5 0.2-0.8 [facility] DallasEosinophils # (Auto)2017-09-07 07:03:00* Test Item Value Reference Range Interpretation Comments Eosinophils # (Auto) (test code = 711-2) 0.1 0.0-0.4 [facility] DallasBasophils # (Auto)2017-09-07 07:03:00* Test Item Value Reference Range Interpretation Comments Basophils # (Auto) (test code = 704-7) 0.0 0.0-0.1 [facility] DallasAbsolute Immature Granulocyte (auto 2017-09-07 07:03:00* Test Item Value Reference Range Interpretation Comments Absolute Immature Granulocyte (auto (lisy t code = Absolute Immature Granulocyte (auto) 0.04 0-0.1 [facility] U[facility]k9791-[facility]-18 07:03:00* Test Item Value Reference Range Interpretation Comments Sodium Level (test code = 2951-2) 134 136-145 L [facility] DallasPotassium [id number] 07:03:00* Test Item Value Reference Range Interpretation Comments Potassium Level (test code = 2823-3) 3.7 3.5-5.1 [facility] DallasChloride [id number] 07:03:00* Test Item Value Reference Range Interpretation Comments Chloride Level (test code = 2075-0) 100 98-107 [facility] DallasCarbon Dioxide Feiye3271-75-53 07:03:00* Test Item Value Reference Range Interpretation Comments Carbon Dioxide Level (test code = 2028-9) 24 22-29 [facility] DallasAnion [id number] 07:03:00* Test Item Value Reference Range Interpretation Comments Anion Gap (test code = 70461-1) 13.7 8-16 [facility] DallasBlood Urea Litpavgj1336-46-87 07:03:00* Test Item Value Reference Range Interpretation Comments Blood Urea Nitrogen (test code = 3094-0) 9 7-26 [facility] DallasCreatinine2018-07-31 07:03:00* Test Item Value Reference Range Interpretation Comments Creatinine (test code = 2160-0) 0.98 0.72-1.25 [facility] DallasBUN/Creatinine Ijbli0423-48-57 07:03:00* Test Item Value Reference Range Interpretation Comments BUN/Creatinine Ratio (test code = 3097-3) 9 6-25 [facility] DallasEstimat Glomerular Filtration Rate 2017-09-07 07:03:00* Test Item Value Reference Range Interpretation Comments Estimat Glomerular Filtration Rate (test code = 12644-2) 60- >60 Ranges were taken from the National Kidney Disease Education Program and the [facility] Kidney Foundation literature.Reference ranges:60 or greater: Xxkgki02-33 ( for 3 consecutive months): Chronic kidney disease 15 or less: Kidney failureBaylor Scott & White Heart and Vascular Hospital – DallasGlucose Jttfx9458-47-31 07:03:00* Test Item Value Reference Range Interpretation Comments Glucose Level (test code = HAM5119) 100 74-118 [facility] DallasCalcium [id number] 07:03:00* Test Item Value Reference Range Interpretation Comments Calcium Level (test code = 10250-0) 9.2 8.4-10.2 [facility] DallasTotal Bdxtygjyf4541-01-27 07:03:00* Test Item Value Reference Range Interpretation Comments Total Bilirubin (test code = 1975-2) 0.6 0.2-1.2 [facility] DallasAspartate Amino Transf (AST/SGOT) 2017-09-07 07:03:00* Test Item Value Reference Range Interpretation Comments Aspartate Amino Transf (AST/SGOT) (test code = Aspartate Amino Transf (AST/SGOT)) 60 5-34 H [facility] DallasAlanine Aminotransferase (ALT/SGPT) 2017-09-07 07:03:00* Test Item Value Reference Range Interpretation Comments Alanine Aminotransferase (ALT/SGPT) (test code = 1742-6) 52 0-55 [facility] Conroetal [id number] 07:03:00* Test Item Value Reference Range Interpretation Comments Total Protein (test code = 2885-2) 6.3 6.5-8.1 L [facility] DallasAlbumin2018-07-31 07:03:00* Test Item Value Reference Range Interpretation Comments Albumin (test code = 1751-7) 3.5 3.5-5.0 [facility] DallasGlobulin2018-07-31 07:03:00* Test Item Value Reference Range Interpretation Comments Globulin (test code = 61880-5) 2.8 2.3-3.5 [facility] DallasAlbumin/Globulin Fmwzr8670-24-21 07:03:00 * Test Item Value Reference Range Interpretation Comments Albumin/Globulin Ratio (test code = 1759-0) 1.3 0.8-2.0 [facility] DallasAlkaline Xlopokkzvlj9107-15-02 07:03:00* Test Item Value Reference Range Interpretation Comments Alkaline Phosphatase (test code = 6768-6) 42 40-150 [facility] DallasCeruloplasmin2018-07-30 19:50:00* Test Item Value Reference Range Interpretation Comments Ceruloplasmin (test code = 2064-4) 17.4 16.0-31.0 Performed at: DA - [facility] [id number] [facility] [address], [place], [place] [id number] 4Lab Director: BRIAN Winter MD, Phone: [phone] Scott & White [facility] and Vascular Hospital – DallasAnti-Mitochondrial Uhrksouz7531-56-14 19:50:00* Test Item Value Reference Range Interpretation Comments Anti-Mitochondrial Antibody (test code = 12125-1) 4.4 0.0- 20.0 Negative 0.0 - 20.0 Equivocal 20.1 - 24.9 Positive > 24.9Mitochondrial (M2) Antibodies are found in 90-96% ofpatients with primary bi liary cirrhosis.Performed at: - [facility] [id number] Director: Kendall Bell MD, Phone: [phone] Scott & White Heart and Vascular Hospital – DallasHepatitis A IgM Zwarhjjm0661-34-12 10:59:00* Test Item Value Reference Range Interpretation Comments Hepatitis A IgM Antibody (test code = 87823-5) Negative [facility]He[facility] B Surface Kzwakaq4600-12-05 10:59:00* Test Item Value Reference Range Interpretation Comments Hepatitis B Surface Antigen (test code = 5196-1) Negative [facility] B Core IgM Ncypgvqm3867-09-81 10:59:00* Test Item Value Reference Range Interpretation Comments Hepatitis B Core IgM Antibody (test code = 89279-7) Negative [facility] C Vlynykfz3758-45-61 10:59:00* Test Item Value Reference Range Interpretation Comments Hepatitis C Antibody (test code = 94230-4) -0.1 Reference Range: 0.0 - 0.9 s/co ratioNegative: < 0.8Indeterminate: 0.8 - 0.9Positive: > 0.9The CDC recommends that a positive HCV antibody resultbe followed up with a HCV Nucleic Acid Amplificationtest (232410).Testing performed by:[facility] [address] [id number]: Goran Espinoza [facility] StationCreatine Qfcxgj6780-66-91 06:57:00* Test Item Value Reference Range Interpretation Comments Creatine Kinase (test code = 2157-6) 68 30-200 [facility] DallasAmmonia2018-07-29 05:10:00* Test Item Value Reference Range Interpretation Comments Ammonia (test code = 94335-4) 74 31-123 [facility] DallasAnti-Nuclear Antibody Gcfsqz6845-29-63 13:26:00* Test Item Value Reference Range Interpretation Comments Anti-Nuclear Antibody Screen (test code = 5048-4) Negative . Negative <1:80 Borderline 1:80 Positive > 1:80Performed at: - [facility] [id number] 3Lab Director: Goran Espinoza MD, Phone: [phone] Scott & White Heart and Vascular Hospital – DallasVitamin B12 Lldfn1973-67-29 06:15:00* Test Item Value Reference Range Interpretation Comments Vitamin B12 Level (test code = 33193-9) 634 213816 [facility] DallasFolate2018-07-28 06:15:00* Test Item Value Reference Range Interpretation Comments Folate (test code = 2284-8) 15.4 7.0-15.4 [facility] DallasFerritin2018-07-28 05:55:00* Test Item Value Reference Range Interpretation Comments Ferritin (test code = 2276-4) 350.72 21.81-274.66 H [facility] DallasPhosphorus Vhavw0526-30-83 05:45:00* Test Item Value Reference Range Interpretation Comments Phosphorus Level (test code = IDL9019) 2.8 2.3-4.7 [facility] DallasMagnesium Lsdmg9830-83-79 05:45:00* Test Item Value Reference Range Interpretation Comments Magnesium Level (test code = 75280-9) 1.5 1.3-2.1 [facility] DallasIron Hlyli4216-94-30 05:36:00* Test Item Value Reference Range Interpretation Comments Iron Level (test code = 2498-4) 53 65-175 L [facility] DallasTotal Iron Binding Ucbxkjpp1389-14-74 05:36:00* Test Item Value Reference Range Interpretation Comments Total Iron Binding Capacity (test code = 2500-7) 382 261-4 78 [facility] DallasPercent Iron Krsimqbgpc6344-15-42 05:36:00* Test Item Value Reference Range Interpretation Comments Percent Iron Saturation (test code = 2502-3) 14 15-50 L [facility] DallasTransferrin2018-07-28 05:36:00* Test Item Value Reference Range Interpretation Comments Transferrin (test code = 3034-6) 273 174-364 [facility] DallasPercent Reticulocyte Bvxdx2367-41-49 05:22:00* Test Item Value Reference Range Interpretation Comments Percent Reticulocyte Count (test code = 09916-0) 2.5 0.8-2 .2 H [facility] DallasHEPTOBILIARY W TIQZQ4440-04-24 14:24:00 [facility] [address] [place] [address] Patient Name: SHEFALI HERMAN MR #: [id number] : [birth year] Age/Sex: 57/M Req #: [id number] Adm Physician: RYLEE FLORES MD Ordered by: RYLEE AMOR MD Report #: [id number] Location: ICU Room/Bed: ICU [facility] Procedure: [id number] NM/HEPTO BILIARY W PHARM Exam Date: 09/03/17 Exam Time: 1037 REPORT STATUS: Signed Hepatobiliary Scan with Gallbladder Ejection Frac tion Clinical information: 57 M with gallstones and elevated LFT's Rep ort: Following intravenous administration of 6.6 millicuries of Tc-99m mebrofe suhail, dynamic images of the abdomen in the anterior projection were obtained th rough 21 minutes. Sincalide (CCK analog) 2.6 micrograms was administered intr avenously over 30 minutes with additional imaging for determination of gallbla dder ejection fraction. Perfusion to the liver is normal. Extraction of tr acer from the blood pool by the liver parenchyma is normal. Tracer is seen pr omptly within the biliary tract. The gallbladder begins to fill by 5 minutes post-injection of tracer and fills adequately. Tracer is seen in the small alfredo wel by 8 minutes. The gallbladder ejection fraction with administration of si ncalide is 43% (normal greater than 40%). Impression: 1. Filling o f the gallbladder excludes the diagnosis of acute cystic duct obstruction/acut e cholecystitis. 2. Normal gallbladder ejection fraction of 43% does not supp ort the clinical diagnosis of chronic cholecystitis/gallbladder dyskinesia. Signed by: Dr. Airam Negro M.D. on 09/03/2017 2:27 PM Dictated By: RAQUEL NEGRO MD 1427 Transcri bed By: FLOWER on 09/03/17 1427 COPY TO: RYLEE AMOR MD CHEST SINGLE (PORTABLE)2017-09-03 06:50:00 [place] [address] Patient Name: SHEFALI HERMAN MR #: [id number] : 1960 Age/Sex: 57/M Req #: [id number] Adm Physician: RYLEE AMOR MD Ordered by: APRIL MC NP Report #: [id number] Location: ICU Room/Bed: ICU [facility] Procedure: [id number] DX/CHEST SINGLE (PORTABLE) Exam Date: 09/03/17 Exam Time: 05 35 REPORT STATUS: Signed EXAM: CHEST SINGLE (PORTABLE), AP 1 view IND ICATION: Back pain COMPARISON: AP view of the chest September 03, 2017 FINDING S: LINES/TUBES: None LUNGS: No consolidations or edema. PLEURA: No effusions or pneumothorax. HEART AND MEDIASTINUM: Normal size and contour. BONES AND SOFT TISSUES: No acute findings. IMPRESSION: No acute tho racic abnormality. Signed by: Dr. Lotus Mejia M.D. on 8 6:50 AM Dictated By: LOTUS MEJIA MD Transcribed By: FLOWER on 09/03/1750 COPY TO: APRIL MC PHARMACY ASSISTANT Creatine Kinase XD6512-84-06 06:14:00* Test Item Value Reference Range Interpretation Comments Creatine Kinase MB (test code = 45406-2) 6.20 0-5.0 H [facility] DallasTroponin H8733-44-05 06:14:00* Test Item Value Reference Range Interpretation Comments Troponin I (test code = EBG1943) -0.001 0-0.300 [facility] DallasUric Hjrf6666-64-87 15:11:00* Test Item Value Reference Range Interpretation Comments Uric Acid (test code = 3084-1) 4.0 4.8-8.0 L [facility] DallasCT ABDOMEN/PELVIS H6546-39-43 13:05:00 [place] [address] Patient Name: SHEFALI HERMAN MR #: [id number] : [birth year] Age/Sex: 57/M Req #: [id number] Adm Physician: Ordered by: APRIL MC PHARMACY ASSISTANT Report #: [id number] Location: ER Room/Bed: Procedure: [id number] CT/CT ABDOMEN/PELVIS W Exam Date: 09/02/17 Exam Time: 1210 REPORT STATUS: Signed PROCEDURE: CT ABDOMEN AND PELVIS WITH CONTRAST TECHNIQUE: The abdomen and pelvis were scanned utilizing a multidetector helical scanner from the diaphragm to the lesser trochanter after the IV administration of 100 cc of Isovue 370 and the oral administration of water. Coronal and sagittal multipl santy reformations were obtained. COMPARISON: CT abdomen and pelvis with co ntrast 11/27/2008, CT abdomen and pelvis without contrast 11/13/2016. IN DICATIONS: ABDOMEN PAIN, NAUSEA, VOMITING FINDINGS: LOWER THORAX: Norm al. HEPATOBILIARY: Hepatic parenchyma is diffusely hypoattenuating comp atible with steatosis. No focal hepatic lesion. No intrahepatic biliary ducta l dilatation. Radiopaque calculus within the dependent portion of the gallbla dder, unchanged, and without pericholecystic inflammation. SPLEEN: No splen omegaly. PANCREAS: No focal masses or ductal dilatation. ADRENALS: No ad renal nodules. KIDNEYS/URETERS: No hydronephrosis, stones, or solid mass lesio ns. PELVIC ORGANS/BLADDER: The urinary bladder is collapsed and poorly eval uated. Prostate and seminal vesicles appear normal. PERITONEUM / RETROPERI TONEUM: No ascites. No pneumoperitoneum. LYMPH NODES: No pelvic sidewall, retr operitoneal, or mesenteric lymphadenopathy. VESSELS: Atherosclerotic calcif ication of the abdominal aorta, major branch vessels, and iliac arterial syst ems without aneurysmal dilatation. Portal vein, splenic vein, and the central superior mesenteric vein are patent. GI TRACT: The sigmoid colon and r ectum are collapsed and poorly evaluated. Scattered sigmoid diverticula witho ut wall thickening or adjacent inflammatory change. The appendix is not ident ified and may have been resected. No right lower quadrant inflammatory change . Prominence of the gastric rugal folds is likely related to underdistenti on. No small bowel dilatation to suggest obstruction there BONES AND SOFT TISSUES: Bilateral fat containing inguinal hernias. Small fat containing umbi lical hernia. Postsurgical changes of the low anterior abdominal wall. Calcif ied injection granulomata in the subcutaneous fat of the right gluteal region . Regional skeletal structures are intact with mild degenerative disc changes of the lower lumbar spine. Healing fractures of the left sixth, seventh, and eighth ribs. IMPRESSION: No acute intra-abdominal or pelvic CT a bnormalities. Healing fractures of the left sixth, seventh, and eighth rib s laterally. No pneumothorax. Hepatic steatosis. Cholelithiasis w ithout CT evidence of acute cholecystitis. Large bowel diverticulosis with out CT evidence of diverticulitis. Atherosclerotic vascular disease. Dictated by: Eduardo Scott M.D. on 09/02/2017 at 13:05 Electronically angelina roved by: Eduardo Scott M.D. on 09/02/2017 at 13:05 Dictated By: FAB SCOTT MD 1305 Tra nscribed By: LILIANA on 09/02/17 1305 COPY TO: APRIL MC NP CHEST 2 VSCMD2981-57-19 12:53:00 [place] [address] Patient Name: SHEFALI HERMAN MR #: [id number] : 1960 Age/Sex: 57/M Req #: [id number] Adm Physician: Ordered by: APRIL MC NP Report #: [id number] Location: ER Room/Bed: Procedure: [id number] DX/CHEST 2 VIEWS Exam Date: 09/02 Exam Time: 1220 REPORT STATUS: Signed MD OCEDURE: X-RAY CHEST, TWO VIEWS COMPARISON: 11/13/2016 INDICATIONS: BACK PAIN FINDINGS: Exam limited due to patient body habitus. Lungs are g rossly clear without consolidation, effusion, or pneumothorax. Cardiomediasti nal contours within normal limits. No acute osseous abnormality. CONCLUSION: Limited evaluation due to body habitus. Grossly, no acute ca rdiopulmonary abnormality. Dictated by: Eduardo Scott M.D. on 09/02/2017 at 12:53 Electronically approved by: Eduardo Scott M.D. on 09/02/2017 at 12:53 Dictated By: EDUARDO SCOTT MD 1253 Transcribed By: LILIANA on 09/02/17 1253 COPY TO: APRIL MC PHARMACY ASSISTANT Urine TUH1431-15-36 11:40:00* Test Item Value Reference Range Interpretation Comments Urine WBC (test code = 5821-4) 0-5 0-5 [facility] DallasUrine GTJ3234-95-14 11:40:00* Test Item Value Reference Range Interpretation Comments Urine RBC (test code = 36235-5) 6-10 0-5 H [facility] DallasUrine Usvtysgh4243-62-63 11:40:00* Test Item Value Reference Range Interpretation Comments Urine Bacteria (test code = 83104-6) MANY NONE H [facility] DallasUrine Epithelial Mqobg3989-79-58 11:40:00 * Test Item Value Reference Range Interpretation Comments Urine Epithelial Cells (test code = 21796-9) FEW NONE [facility] DallasUrine Hyaline Awtwu8922-65-39 11:40:00* Test Item Value Reference Range Interpretation Comments Urine Hyaline Casts (test code = 43023-3) 11-15 0-1 H [facility] DallasUrine Dzanh5064-07-57 11:40:00* Test Item Value Reference Range Interpretation Comments Urine Mucus (test code = 8247-9) FEW RARE H [facility] DallasAmylase Pmrlo9225-50-49 11:32:00* Test Item Value Reference Range Interpretation Comments Amylase Level (test code = 1798-8) 36 25-125 [facility] DallasLipase2018-07-26 11:32:00* Test Item Value Reference Range Interpretation Comments Lipase (test code = 3040-3) 41 8-78 [facility] DallasUrine Pjnnu0768-65-77 11:20:00* Test Item Value Reference Range Interpretation Comments Urine Color (test code = 5778-6) YELLOW YELLOW [facility] DallasUrine Rrloepz7590-35-78 11:20:00* Test Item Value Reference Range Interpretation Comments Urine Clarity (test code = 41434-0) CLEAR CLEAR [facility] DallasUrine Specific Yqegofa1494-19-46 11:20:00 * Test Item Value Reference Range Interpretation Comments Urine Specific [place] (test code = 5811-5) 1.030 1.010-1.02 5 H [facility] DallasUrine qN4481-64-71 11:20:00* Test Item Value Reference Range Interpretation Comments Urine pH (test code = 76897-5) 6 5-7 [facility] DallasUrine Leukocyte Dfiojavm7734-61-47 11:20:00* Test Item Value Reference Range Interpretation Comments Urine Leukocyte Esterase (test code = 5799-2) NEGATIVE NEGATIVE [facility] DallasUrine Doxwmzh8200-30-77 11:20:00* Test Item Value Reference Range Interpretation Comments Urine Nitrite (test code = 18793-5) NEGATIVE NEGATIVE [facility] DallasUrine Gggoruy4914-45-14 11:20:00* Test Item Value Reference Range Interpretation Comments Urine Protein (test code = 5804-0) TRACE NEGATIVE H [facility] DallasUrine Glucose (UA)2017-09-02 11:20:00* Test Item Value Reference Range Interpretation Comments Urine Glucose (UA) (test code = 2349-9) NEGATIVE NEGATIVE [facility] DallasUrine Qqewtwl9494-06-25 11:20:00* Test Item Value Reference Range Interpretation Comments Urine Ketones (test code = 75641-9) TRACE NEGATIVE H [facility] DallasUrine Atkcltppjdoc8528-39-02 11:20:00* Test Item Value Reference Range Interpretation Comments Urine Urobilinogen (test code = 35746-0) 1 0.2-1 [facility] DallasUrine Pulguehjv4886-92-33 11:20:00* Test Item Value Reference Range Interpretation Comments Urine Bilirubin (test code = 1978-6) 1+ NEGATIVE H Confirmatory test currently unavailable. False positive results may occur.[facility] DallasUrine Zzdpd0393-94-32 11:20:00* Test Item Value Reference Range Interpretation Comments Urine Blood (test code = 92492-8) NEGATIVE NEGATIVE [facility] DallasProthrombin Csag5567-74-12 11:18:00* Test Item Value Reference Range Interpretation Comments Prothrombin Time (test code = 5902-2) 13.2 11.9-14.5 [facility] DallasProthromb Time International Ratio 2017-09-02 11:18:00* Test Item Value Reference Range Interpretation Comments Prothromb Time International Ratio (test code = 6301-6) 1.08 Oral Anticoagulant Therapy INR Values:1. Low Intensity Therapy 1.5 - 2.02 . Moderate Intensity Therapy 2.0 - 3.03. High Intensity Therapy(1) 2.5 - 3. 54. High Intensity Therapy(2) 3.0 - 4.05. Panic Value INR > 5.0 [facility] DallasActivated Partial Thromboplast Time 2017-09-02 11:18:00* Test Item Value Reference Range Interpretation Comments Activated Partial Thromboplast Time (test code = 21656-9) 27.9 23.8-35.5 [facility] Jldmk8660-21-94 16:43:00* Test Item Value Reference Range Interpretation Comments Stool Occult Blood (test code = 2335-8) NEGATIVE NEGATIVE [facility] DallasUrine Opiates Sgmyqk5836-38-69 06:09:00* Test Item Value Reference Range Interpretation Comments Urine Opiates Screen (test code = 50532-0) NEGATIVE NEGATIVE [facility] DallasUrine Barbiturates Qujdhz3948-89-94 06:09:00* Test Item Value Reference Range Interpretation Comments Urine Barbiturates Screen (test code = 758216549) NEGATIVE NEGA TIVE [facility] DallasUrine Phencyclidine Mlhhmo4070-01-40 06:09:00* Test Item Value Reference Range Interpretation Comments Urine Phencyclidine Screen (test code = 50244-4) NEGATIVE NEGAT TOM [facility] DallasUrine Amphetamines Xfsrzl3801-56-93 06:09:00* Test Item Value Reference Range Interpretation Comments Urine Amphetamines Screen (test code = 26964-6) NEGATIVE NEGATI VE [facility] DallasUrine Benzodiazepines Dejdfb3713-13-57 06:09:00* Test Item Value Reference Range Interpretation Comments Urine Benzodiazepines Screen (test code = 02910-5) POSITIVE NEG ATIVE H This test provides only a screen. Positive results should be repeated by a confi rmatory test.[facility] DallasUrine Cocaine Screen 2016-11-15 06:09:00* Test Item Value Reference Range Interpretation Comments Urine Cocaine Screen (test code = Urine Cocaine Screen) NEGATIVE NEGATIVE [facility] DallasUrine Cannabinoids Esojjz6388-24-95 06:09:00* Test Item Value Reference Range Interpretation Comments Urine Cannabinoids Screen (test code = 23634-2) NEGATIVE NEGATI VE THESE RESULTS ARE FOR MEDICAL TREATMENT ONLYTHIS REPORT CONTAINS UNCONFIR MED SCREENING RESULTS*POSITIVE RESULTS WILL BE CONFIRMED BY REFERENCE LAB UPON R EQUEST CUT-OFFDRUG CLASS CONCENTRATION ng/mLAmphetamines 1000Methamphetamines 1000Cocaine 300Opiate 300Phencyc lidine 25Cannabinoid 50Barbiturates 300Benzodiazepine 300Methadone 300[facility] CenterEthyl Alcohol Snbmd5943-87-91 18:55:00* Test Item Value Reference Range Interpretation Comments Ethyl Alcohol Level (test code = 5643-2) 36.1 0.0-10.0 H [facility] DallasCT ABDOMEN/PELVIS WO [facility] [address] [place] [address] Patient Name: SHEFALI HERMAN MR #: [id number] : 1960 Age/Sex: 56/M Req #: [id number] Adm Physician: Ordered by: SHARAN CHRISTIANSON PHARMACY ASSISTANT Report #: [id number] Location: ER Room/Bed: Procedure: [id number] CT/CT ABDOMEN/PELVIS WO Exam Date: 11/13/16 Exam Time: 1954 REPORT STATUS: S igned EXAM: CT Abdomen and Pelvis WITHOUT contrast INDICATION: Abdomin al pain COMPARISON: CT abdomen and pelvis 11/27/2008 TECHNIQUE: Abdomen and pelvis were scanned utilizing a multidetector helical scanner from the lung ba se to the pubic symphysis. Coronal and sagittal reformations were obtained. T he lack of intravenous contrast limits the evaluation of the solid organs, vas culature, and possible lymphadenopathy. Protocol: General survey without contrast IV CONTRAST: No intravenous contrast was administered as per physicia n request. ORAL CONTRAST: Oral contrast was administered. COMPLICATIONS: No ne. RADIATION DOSE: Total Exam DLP: 861.4 mGy*cm. CTDIvol has been review ed. It is below the limits set by the Radiation Protocol Committee (RPC). FINDINGS: LINES: None. Lower thorax: No parenchymal abnormality. No pneumothorax. No pleural effusion. Liver: No focal mass. No hepat omegaly. Normal parenchyma. Gallbladder: Cholelithiasis. No gallbladder dist ention. Biliary tree: No intrahepatic duct dilation. No extrahepatic duct dil ation. Spleen: No splenomegaly. No focal mass. Pancreas: No focal mass. No rmal pancreatic duct. No peripancreatic inflammatory changes. Kidneys: No obstructing calculi. No hydronephrosis. No cysts. No perinephric soft tis ed inflammatory changes. Adrenal glands: No adrenal nodules.. Bladde r: Normal urinary bladder. Pelvic organs: Normal. GI: No bowel wall thickening. No air-fluid levels. The stomach and small bowel are normal. M ultiple diverticuli present in the sigmoid colon, without adjacent soft tissue inflammatory changes. Normal appendix. A moderate amount of retained feces limits intraluminal evaluation of the colon. Peritoneum/retroperitoneum: N o pneumoperitoneum. No ascites. No drainable fluid collection. Lymph node s: No lymphadenopathy. . Vessels: No focal abnormality. Aortoiliac ath erosclerotic calcifications. Limited evaluation. Bones: No focal abnorm ality. Degenerative changes of the lumbar spine. Soft tissues: No focal abno rmality. IMPRESSION: No acute abnormality of the abdomen and pelvis. Cholelithiasis. Diverticulosis without evidence of diverticulitis. Signed by: Dr. Matteo Sánchez M.D. on 11/13/2016 8:28 PM Dictated By: MATTEO SÁNCHEZ MD 27 Transcribed By: FLOWER on 11/13/162027 COPY TO: SHARAN CHRISTIANSON PHARMACY ASSISTANT CHEST SINGLE (PORTABLE) [place] [address] Patient Name: SHEFALI HERMAN MR #: [id number] : 1960 Age/Sex: 56/M Req #: [id number] Adm Physician: Ordered by: SCOOBY ZAIDI MD Report #: [id number] Location: ER Room/Bed: Procedure: [id number] DX/CHEST SINGLE (PORTABLE) Exam Date: Exam Time: REPORT STATUS: Signed MD OCEDURE: A single AP view of the chest. COMPARISON: Chest x-ray 4. INDICATIONS: RECTAL BLEED, SOB FINDINGS: Lines/tubes: No ne. Lungs: The lungs are well inflated. Mild left basilar atelectasis. There is no evidence of pneumonia or pulmonary edema. Pleura: There is no pleural effusion or pneumothorax. Heart and mediastinum: The heart and the mediastinum are unremarkable. Bones: No acute bony abnormality. IMPRESSION: No acute cardiopulmonary disease. Dictated by: Jose bergman M.D. on 11/13/2016 at 18:36 Electronically approved by: Jose Hayward M.D. on 11/13/2016 at 18:36 Dictated By: JOSE HAYWARD MD Electronically S igned By: JOSE HAYAWRD MD on 11/13/161835 Transcribed By: LILIANA on 11/13/161835 COPY TO: SCOOBY ZAIDI MD
[2019-09-21 15:25] LABS: FREE THYROXINE INDEX 2.457 (1.4-3.8); THYROID STIMULATING HORMONE 2.347 uIU/mL (0.350-4.940)
--- OUTSIDE RECORDS SUMMARY | 2019-09-21 16:20 | XMS REPORT | Clinical Summary ---
Author Author DEVANTE [facility] Address Unknown Phone Unavailable Care Team Providers Care Zookeeper Name Role Phone PCP Unavailable Allergies Not [...] CARE [employer]IG[employer] xxxxxxxxxxx HMO/POS HMO/POS/OP EN ACCESS -[id number]
--- OUTSIDE RECORDS SUMMARY | 2019-09-21 16:20 | XMS REPORT | Continuity of Care Document ---
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 [facility] An[facility] ([facility] Active 04/24/2014 Problem 07/17/2017 Data migrated from [employer] on . [facility] Cyst of epididymis (disorder) Active 04/24/2014 Problem 07/17/2017 Data migrated from [employer] on . [facility] Elevated levels of transaminase & lactic acid dehydrogenase (finding) Active 04/24/2014 Problem 07/17/2017 Data migrated from [employer] on 08/15/14. [facility] Hearing loss (finding) Active 04/24/2014 Problem 07/17/2017 Data migrated from [employer] on . [facility] Hyperglycemia (disorder) Active 04/24/2014 Problem 07/17/2017 Data migrated from [employer] on . [facility] Hypertriglyceridemia ([facility]order) Active 04/24/2014 Problem 07/17/2017 Data migrated from [employer] on . [facility] Hypokalemia (disorder) Active 04/24/2014 Problem 07/17/2017 Data migrated from [employer] on . ERICK Salomon,[facility] Obesity (disorder) Active 04/24/2014 Problem 07/17/2017 Data migrated from [employer] on . 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 lopathy, lumbar region 07/17/2017 [facility] Alcoholism (disorder) Resolved Problem 07/17/2017 [facility] Anxiety (finding) Active Problem 07/17/2017 [facility] Coronary arteriosclerosis (disorder) Active Problem 10/2017 [facility] ([facility]) Acti ve Problem 10/2017 [facility] Hypercholesterolemia (disorder) Active Problem 10/2017 [facility] Hypertensive disorder, systemic arterial (disorder) Active Problem 07/17/2017 [facility] Medications No Data Provided for This Section Allergies, Adverse Reactions, Alerts Substance Category Reaction Severity Reaction type Status Date Reported Comments Source penicillins<sup>1</sup> Assert ion Drug aller gy Active 04/24/2014 Data migrated from [employer] on 09/07/14. Originally documented as PENICILLIN. [facility] codeine<sup>2, 3</sup> Asserti on Drug aller gy Active 04/24/2014 Data migrated from [employer] on 04/29/15. Originally documented as CODEINE. Data migrated from [employer] on 04/12/15. Originally documented as CODEINE. [facility] codeine<sup>1</sup> Assertion Drug allergy Active 04/24/2014 Data migrated from [employer] on 04/12/15. Originally documented as CODEINE. ERICK Salomon penicillins<sup>2</sup> Assert ion Drug aller gy Active 04/24/2014 Data migrated from [employer] on 09/07/14. Originally documented as PENICILLIN. ERICK Salomon Immunizations Immunization Date Given Site Status Last Updated Comments Source diphtheria/pertussis, acel/tetanus adult 09/14/2016 Left ventragluteal completed [facility] Results No Data Provided for This [...] significant spinal canal stenosis. SL: BMUSTAFA-M 04/10/2017 [facility] Spine cervical wo contrast MRI Clinical [...] left neural foraminal narrowing. SL: FARHANAUSTAFA-Jeny 04/10/2017 [facility] Sinus paranasal series DX SINU S [...] also present on comparison x-ray. 11/08/2014 [facility] Chest 2 views DX Exam: Two-vie w chest x-ray Reason for Exam: Cough Comparison Exam: None Discussion: Cardiomediastinal silhouette is within normal limits. Both hemidiaphragms well visualized. No pulmonary edema or pleural effusions. Mild atelectasis seen within the left lung base. Trachea is midline. No acute bony abnormalities. Impression: 1. Mild atelectasis seen within the lef t lung base. 11/08/2014 [facility] [place] Consultation Notes No Data Provided for This Section Discharge Summaries No Data Provided for This Section History and Physicals No Data Provided for This Section Vital Signs No Data Provided for This Section Encounters Location Location Details Encounter Type Encounter Number Reason For Visit Attending Provider ADM Date DC Date Status Source [facility] [place] [facility] [id number] 01 Dary Garciaerte 11/08/2014 11/09/2014 [facility] [place] [facility] [place] [facility] [id number] 02 Dary CleaningRobert 04/15/2015 04/16/2015 [facility] [place] [facility] Outpatient [id number] NADINE KAUR 12/11/2015 [facility] Outpatient [id number] MARU ORTIZ 09/14/2016 [facility] Outpatient [id number] Dary Garciaerte 04/10/2017 04/11/2017 [facility] Outpatient [id number] [facility] 04/08/2018 [facility] Out[facility] [id number] [facility] 04/29/2018 [facility] Procedures Procedure Code Date Perfomer Comments Source Colon operation<sup>1</sup> 82 [id number] 10/09/2013 Colon Resection and raptured colon [facility] Colonoscopy [id number] 02/08/2013 [facility] Stent placement<sup>2</sup> 10 [id number] 02/09/2004 CAD [facility] Hemorrhoids - ligate/excise 28 [id number] 02/08/1990 [facility] Appendectomy [id number] 02/08/1969 [facility] Tonsillectomy [id number] 02/09/1964 [facility] Sinusectomy and turbinectomy 4 [id number] [facility] Assessment and Plan No Data Provided for This Section Plan of Care No Data Provided for This Section Social History Social History Date Source Social History TypeResponse Sexual 1 Exercise Exercise frequency: 3-4 times/week. Exercise type: climbing, stairs at work. Employment/School Status: Employed. 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 Other: , 3 daughters (adopted). Alcohol Current, Type Beer. Frequency: 3-5 times per week. Smoking Status Former smoker; Type: Cigars; Previous treatment: None; Lives with someone who smokes; Cigarette Smoking Last 365 Days No; Reg Smoking Cessation Counseling No; Number of years: 10; Started at age: 34.0; Stopped at age: 44; entered on: 09/16/16 1Married 12/11/2015 [facility] No data available for this section 04/16/2015 ERICK Salomon Family History No Data Provided for This Section Advance Directives No Data Provided for This Section Functional Status No Data Provided for This Section
--- OUTSIDE RECORDS SUMMARY | 2019-09-21 16:20 | XMS REPORT | Continuity of Care Document ---
Author Author [facility] t Organization [facility] Address [address] [place] [address] 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 Name Role Phone PARTH PACHECO MD PCP Estephania SANDERSON Attphys Unavailable SEBASTIAN GIORDANO Attphys Unavailable MT, RYLEE Attphys Unavailable Parth Pacheco Attphys SCOOBY ZAIDI Attphys Unavailable NITA HOWELL Admphys Unavailable TM, RYLEE Admphys Unavailable DACCAKLULY Admphys Unavailable Payers Payer Name Policy Type Policy Number Effective Date Expiration Date Estephania [place] Ppo [id number] 2007 00:00:00 DEVANTE [facility] Problems Condition Name Condition Details Condition Category Status Onset Date Resolution Date Last Treatment Date Treating Clinician Comments Source M54.10, I25.10 STENTS M5 4.10, I25.10 STENTS Active 04/01/2017 [facility] Diagnosis Active 2017-04-01 00:00:00 2017-04-10 14:50:00 Dudley Arteaga R05 - COUGH R05 - COUGH Active 11/08/2014 OPID Edwards Diagnosis Active 2014-11-08 00:01:00 2014-11-08 10:57:00 Dudley Arteaga Alcohol abuse (disorder) Alco hol abuse (disorder) Active 04/24/2014 Problem 07/17/2017 Data migrated from [facility] on 08/15/14. OPID Edwards,[facility] Problem Active 2014-04-24 00:00:00 2017-07-17 11:24:19 [facility] Anemia (disorder) Anem ia (disorder) Active 04/24/2014 Problem 07/17/2017 Data migrated from [employer] on 08/15/14. SRINI Salomon [place] Problem Active 2014-04-24 00:00:00 2017-07-17 11:24:19 [facility] Cyst of epididymis (disorder) Cyst of epididymis (disorder) Active 04/24/2014 Problem 07/17/2017 Data migrated from [employer] on 08/15/14. ERICK Salomon [place] Problem Active 2014-04-24 0 0:00:00 2017-07-17 11:24:19 [facility] Elevated levels of transaminase & lactic acid dehydrog enase (finding) Elevated levels of transaminase & lactic acid dehydrogenase (finding) Active 04/24/2014 Problem 07/17/2017 Data migrated from [employer] on 08/15/14. ERICK Salomon [place] Problem Active 2014-04-24 0 0:00:00 2017-07-17 11:24:19 [facility] Hearing loss (finding) Hear ing loss (finding) Active 04/24/2014 Problem 07/17/2017 Data migrated from [employer] on 08/15/14. CHARLYErnestina Umm [place] Problem Active 2014-04-24 00:00:00 2017-07-17 11:24:19 [facility] Hyperglycemia (disorder) Hype rglycemia (disorder) Active 04/24/2014 Problem 07/17/2017 Data migrated from [employer] on 08/15/14. CHARLYErnestina Umm [place] Problem Active 2014-04-24 00:00:00 2017-07-17 11:24:19 [facility] Hypertriglyceridemia (disorder) Hypertriglyceridemia (disorder) Active 04/24/2014 Problem 07/17/2017 Data migrated from [employer] on 08/15/14. CHARLYErnestina Umm [place] Problem Active 2014-04-24 0 0:00:00 2017-07-17 11:24:19 [facility] Hypokalemia (disorder) Hypo kalemia (disorder) Active 04/24/2014 Problem 07/17/2017 Data migrated from [employer] on 08/15/14. CHARLYErnestina Umm [place] Problem Active 2014-04-24 00:00:00 2017-07-17 11:24:19 Dudley [place] Obesity (disorder) Obes ity (disorder) Active 04/24/2014 Problem 07/17/2017 Data migrated from [facility] on 08/15/14. ERICK Salomon [place] Problem Active 2014-04-24 00:00:00 2017-07-17 11:24:19 Dudley [place] Lower gastrointestinal hemorrhage Lower GI bleed Problem Active [facility] Alcohol withdrawal syndrome Withdrawal symptoms, alcohol Problem Active [facility] Spinal stenosis, cervical region Spinal stenosis, cervical region 07/17/2017 [facility] Problem 11:24:19 [facility] [place] Other spondylosis with radiculopathy, cervical region Other spondylosis with radiculopathy, cervical region 07/17/2017 [facility] Problem 2017-07-17 11:24:19 Dudley [place] Low back pain Low back pain 07/17/2017 [facility] Problem 2017-07-17 11:24:19 [facility] Other intervertebral disc degeneration, lumbar region Other intervertebral disc degeneration, lumbar region 07/17/2017 [place] Problem 2017-07-17 11:24:19 [facility] Spondylosis without myelopathy or radiculopathy, lumba r region Spondylosis without myelopathy or radiculopathy, lumbar region 07/17/2017 [facility] Problem 2017-07-17 11:24:19 [facility] Alcoholism (disorder) Alco holism (disorder) Resolved Problem 07/17/2017 [facility] Problem Resolved 2017-07-17 11:24: 19 [facility] Anxiety (finding) Anxi ety (finding) Active Problem 07/17/2017 [facility] Problem Active 2017-07-17 11:24:19 [facility] Coronary arteriosclerosis (disorder) Coronary arteriosclerosis (disorder) Active Problem 07/17/2017 CHARLYErnestina Gilliamjenny [place] Problem Active 2017-07-17 11:24:19 Anant Arteaga Diverticulitis (disorder) Dive rticulitis (disorder) Active Problem 07/17/2017 [facility] Problem Active 2017-07-17 11:2 4:19 [facility] [place] Hypercholesterolemia (disorder) Hypercholesterolemia (disorder) Active Problem 07/17/2017 [facility] Problem Active 2017-07-17 11:24:19 [facility] Hypertensive disorder, systemic arterial (disorder) Hypertensive disorder, systemic arterial (disorder) Active Problem 07/17/2017 [facility] Problem Active 2017-07-17 11:24:19 Dudley Arteaga Cervical disc disorder at C4-C5 level with radiculopat hy Cervical disc disorder at C4-C5 level with radiculopathy 04/23/2017 07/17/2017 [facility] Problem 2017-04-23 03:32:36 2017-07-17 11:24:19 2017-07 11:24:19 Dudley [place] History of Past Illness Condition Name Condition [...] Active Moderate NAUSEA, RASH 20 25-08-25 00:00:00 [facility] Codeine Allergy to Substance Active Moderate NAUSEA, RASH 2017-09-02 00 :00:00 [facility] penicillins<sup>1</sup> penicillins<sup>1</sup> Active 2014-04-24 05:00:00 [facility] codeine<sup>1</sup> codeine<sup>1</sup> Active 2014-04-24 0 5:00:00 [facility] penicillins<sup>2</sup> penicillins<sup>2</sup> Active 2014-04-24 05:00:00 [facility] Social History Social Habit Start Date Stop Date Quantity Comments Source Sex Assigned At [facility] Social History 2015-04-16 05:59:00 2015-04-16 05:59:00 [facility] Medications Ordered Medication Name Filled Medication Name Start Date Stop Da te Current Medication? Ordering Clinician Indication Dosage Frequency Signature (SIG) Comments Components Source Aspirin (Aspir 81) 81 Mg Tablet. Aspirin (Aspir 81) 81 Mg Tablet.dr Esqueda 81 Daily [facility] Dexlansoprazole (Dexilant) 60 Mg Cap. Dexlansopra zole (Dexilant) 60 Mg Cap. Yes 60 Daily [facility] Nebivolol Hcl (Bystolic) 10 Mg Tablet Nebivolol Hcl (Bystolic) 10 M g Tablet Yes 10 Bedtime [facility] Tylenol Tylenol Yes 325 As Needed [facility] Ezetimibe (Zetia) 10 Mg Tablet, 10 Mg Oral Ezetimibe ( Zetia) 10 Mg Tablet, 10 Mg Oral 2017-09-07 00:00:00 No 10 Bedtime [facility] Fenofibric Acid (Choline) (Trilipix) 135 Mg Capsule. , 135 Mg Oral Fenofibric Acid (Choline) (Trilipix) 135 Mg Capsule., 135 Mg Oral 201 09-14-30 00:00:00 No 135 Daily [facility] Rosuvastatin Calcium (Crestor) 20 Mg Tablet, 20 Mg Ora l Rosuvastatin Calcium (Crestor) 20 Mg Tablet, 20 Mg Oral 2017-09-07 00:00:00 No 2 0 Daily [facility] Valsartan/Hydrochlorothiazide (Diovan Hc t 320-25 Mg Tablet) 1 Each Tablet, 1 Tab Oral Valsartan/Hydrochlorothiazide (Diovan Hc t 320-25 Mg Tablet) 1 Each Tablet, 1 Tab Oral 2017-09-07 00:00:00 No 1 Daily [facility] Esomeprazole Magnesium (Nexium) 40 Mg Capsule., 40 M g Oral Esomeprazole Magnesium (Nexium) 40 Mg Capsule., 40 Mg Oral 2017-05-10 00:00:00 No 40 Daily [facility] Fe Fumarate/Fa/Mv, Min Comb#15 (Hemocyte Plus Capsule) 1 Each Capsule, 1 Tab Oral Fe Fumarate/Fa/Mv, Min Comb#15 (Hemocyte Plus Capsule) 1 Each Capsule, 1 Tab Oral 2017-05-10 00:00:00 No 1 Twice A Day [facility] Valsartan/Hydrochlorothiazide (Diovan Hc t 160-12.5 Mg Tab) 1 Each Tablet, 1 Tab Oral Valsartan/Hydrochlorothiazide (Diovan Hc t 160-12.5 Mg Tab) 1 Each Tablet, 1 Tab Oral 2017-05-10 00:00:00 No 1 Daily [facility] Hydrocodone Bit/Acetaminophen ([place] 7.5-325 Tablet) 1 Each Tablet, Oral Hydrocodone Bit/Acetaminophen ([place] 7.5-325 Tablet) 1 Each Tablet, Oral 2013-11-01 00:00:00 No Every 4 Hours [facility] Levofloxacin (Levaquin) 500 Mg Tablet, 500 Mg Oral Lev ofloxacin (Levaquin) 500 Mg Tablet, 500 Mg Oral 2013-10-23 00:00:00 No 500 D aily [facility] Metronidazole (Flagyl) 500 Mg Tablet, 500 Mg Oral Metr onidazole (Flagyl) 500 Mg Tablet, 500 Mg Oral 2013-10-23 00:00:00 No 500 David y [facility] Aspirin (Aspir 81) 81 Mg Tablet., 81 Mg Oral Aspirin (Aspir 81) 81 Mg Tablet., 81 Mg Oral 2013-06-29 00:00:00 No 81 Da jesse [facility] Esomeprazole Magnesium (Nexium) 40 Mg Capsule., 40 M g Oral Esomeprazole Magnesium (Nexium) 40 Mg Capsule.dr, 40 Mg Oral 2013-06-29 00:00:00 No 40 Daily [facility] Ezetimibe (Zetia) 10 Mg Tablet, 10 Mg Oral Ezetimibe ( Zetia) 10 Mg Tablet, 10 Mg Oral 2013-06-29 00:00:00 No 10 [facility] Fenofibric Acid (Choline) (Trilipix) 135 Mg Capsule. , 135 Mg Oral Fenofibric Acid (Choline) (Trilipix) 135 Mg Capsule., 135 Mg Oral 201 05-13-21 00:00:00 No 135 Daily [facility] Fexofenadine Hcl (Roxana Allergy) 60 Mg Tablet, 1 Tab Oral Fexofenadine Hcl (Roxana Allergy) 60 Mg Tablet, 1 Tab Oral 2013-06-29 00:00:[address] No [address] [facility] Rosuvastatin Calcium (Crestor) 20 Mg Tablet, 20 Mg Ora l Rosuvastatin Calcium (Crestor) 20 Mg Tablet, 20 Mg Oral 2013-06-29 00:00:00 No 2 0 Daily [facility] Procedures Procedure Date / Time Performed Performing Clinician Clarissa mendez Computed tomography of abdomen and pelvis with contrast 2017 [facility] X-ray of chest, two views 2017-09-02 00:00:00 ALEXANDRO APRIL I [facility] REVISE ULNAR NERVE AT ELBOW 2017-05-11 00:00:00 REED PATINO [facility] EXCISION OF ILEUM, ENDO, DIAGN 2016-11-17 [facility] EXCISION OF DUODENUM, ENDO, DIAGN 2016-11-17 [facility]:00[facility]00 [facility] EXCISION OF LOWER ESOPHAGUS, ENDO, DIAGN 2016-11-17 00:00:00 DAC CA, [facility] EXCISION OF STOMACH, ENDO, DIAGN 2016-11-17 00:00[facility]00 [facility] Loli REA [facility] EXCISION OF STOMACH, PYLORUS, ENDO, DIAGN 2016-11-17 00:00:00 DA CCAK, [facility] CT of abdomen and pelvis without contrast 2016-11-13 00:00:0 0 Monserrat'SHARAN CAMPOS [facility] Colon operation<sup>1</sup> 2013-10-09 05:00:00 [facility] Colonoscopy 2013-02-08 00:00:00 [facility] Stent placement<sup>2</sup> 2004-02-09 00:00:00 [facility] Hemorrhoids - ligate/excise 1990-02-08 00:00:00 [facility] Appendectomy 1969-02-08 00:00:00 [facility] Tonsillectomy 1964-02-09 00:00:00 [facility] [place] En[facility] Start Date/Time End Date/Time Encounter Type Admission Type Attendi Clinicians Care Facility Care Department Encounter ID Source 2017-09-02 13:20:00 2017-09-07 17:25:00 Discharged Inpatient 1 RYLEE AMOR [facility] [id number] [facility] 2017-05-11 05:18:00 2017-05-11 05:18:00 Registered Surgical Day Care [facility] [id number] [facility] 2017-04-10 14:41:00 2017-04-10 23:59:00 Outpatient Thao PachecoSE [facility] [id number] 2016-11-13 21:30:00 2016-11-18 10:35:00 Discharged Inpatient ER SCOOBY ZAIDI [facility] [id number] [facility] 2015-04-15 08:47:00 2015-04-15 23:59:00 Outpatient Parth Pacheco [facility] M[facility] [id number] 2014-11-08 10:47:00 2014-11-08 23:59:00 Outpatient Parth Pacheco HOIP MHHOIP [id number] Results Test Description Test Time Test Comments Results Result Comments Source CHEST SINGLE (PORTABLE) 2019-09-21 15:16:00 [facility] [address] [place] [address] Patient Name: SHEFALI HERMAN MR #: [id number] : 1960 Age/Sex: 59/M Req #: [id number] Adm Physician: Ordered by: MARIE SANDERSON DO Report #: [id number] Location: ER Room/Bed: Procedure: [id number] DX/CHEST SINGLE (PORTABLE) Exam Date: 09/21/19 Exam [...] 0.50 MG/L FEU, the Negative Predictive Value (FORESTRY AID V) regarding the exclusion of thrombosis is within 95-100% range.White Blood [id number] 07:03:00* Test Item Value Reference Range Interpretation Comments White Blood Count (test code = 6690-2) 3.62 4.8-10.8 L [facility] Ncwfd7844-69-13 07:03:00* Test Item Value Reference Range Interpretation Comments Red Blood Count (test code = 789-8) 3.64 4.3-5.7 L [facility]emoglobin2018-07-31 07:03:00* Test Item Value Reference Range Interpretation Comments Hemoglobin (test code = 61123-5) 11.1 14.0-18.0 L [facility]ematocrit2018-07-31 07:03:00* Test Item Value Reference Range Interpretation Comments Hematocrit (test code = 4544-3) 32.9 38.2-49.6 L [facility] HoustonMean Corpuscular Akqzpl3222-29-06 07:03:00* Test Item Value Reference Range Interpretation Comments Mean Corpuscular Volume (test code = 787-2) 90.4 81-99 [facility] Corpuscular Rfxnxhxaen6769-16-34 07:03:00* Test Item Value Reference Range Interpretation Comments Mean Corpuscular Hemoglobin (test code = 785-6) 30.5 28-32 [facility] HoustonMean Corpuscular Hemoglobin Concent 2017-09-07 07:03:00* Test Item Value Reference Range Interpretation Comments Mean Corpuscular Hemoglobin Concent (test code = 786-4) 33.7 31-35 [facility] HoustonRed Cell Distribution Jgown9572-10-00 07:03:00* Test Item Value Reference Range Interpretation Comments Red Cell Distribution Width (test code = 82913-4) 14.0 11.7 -14.4 [facility] HoustonPlatelet Zoynd4243-85-62 07:03:00* Test Item Value Reference Range Interpretation Comments Platelet Count (test code = 777-3) 168 140-360 [facility] HoustonNeutrophils (%) (Auto)2017-09-07 07:03:00 * Test Item Value Reference Range Interpretation Comments Neutrophils (%) (Auto) (test code = 27872-5) 57.2 38.7-80.0 [facility] Houston[facility]ymphocytes (%) (Auto)2017-09-07 07:03:00 * Test Item Value Reference Range Interpretation Comments Lymphocytes (%) (Auto) (test code = 736-9) 24.3 18.0-39.1 [facility] Houston[facility]ocytes (%) (Auto)2017-09-07 07:03:00* Test Item Value Reference Range Interpretation Comments Monocytes (%) (Auto) (test code = 5905-5) 14.9 4.4-11.3 H [facility] HoustonEosinophils (%) (Auto)2017-09-07 07:03:00 * Test Item Value Reference Range Interpretation Comments Eosinophils (%) (Auto) (test code = 713-8) 1.7 0.0-6.0 [facility] Houston[facility]ophils (%) (Auto)2017-09-07 07:03:00* Test Item Value Reference Range Interpretation Comments Basophils (%) (Auto) (test code = 706-2) 0.8 0.0-1.0 [facility] HoustonIM GRANULOCYTES %2017-09-07 07:03:00* Test Item Value Reference Range Interpretation Comments IM GRANULOCYTES % (test code = IM GRANULOCYTES %) 1.1 0.0- 1.0 H [facility] HoustonNeutrophils # (Auto)2017-09-07 07:03:00* Test Item Value Reference Range Interpretation Comments Neutrophils # (Auto) (test code = 751-8) 2.1 2.1-6.9 [facility] HoustonLymphocytes # (Auto)2017-09-07 07:03:00* Test Item Value Reference Range Interpretation Comments Lymphocytes # (Auto) (test code = 46773-4) 0.9 1.0-3.2 L [facility] HoustonMonocytes # (Auto)2017-09-07 07:03:00* Test Item Value Reference Range Interpretation Comments Monocytes # (Auto) (test code = 742-7) 0.5 0.2-0.8 [facility] HoustonEosinophils # (Auto)2017-09-07 07:03:00* Test Item Value Reference Range Interpretation Comments Eosinophils # (Auto) (test code = 711-2) 0.1 0.0-0.4 [facility] HoustonBasophils # (Auto)2017-09-07 07:03:00* Test Item Value Reference Range Interpretation Comments Basophils # (Auto) (test code = 704-7) 0.0 0.0-0.1 [facility] HoustonAbsolute Immature Granulocyte (auto 2017-09-07 07:03:00* Test Item Value Reference Range Interpretation Comments Absolute Immature Granulocyte (auto (lisy t code = Absolute Immature Granulocyte (auto) 0.04 0-0.1 [facility] Mwhzx7057-21-12 07:03:00* Test Item Value Reference Range Interpretation Comments Sodium Level (test code = 2951-2) 134 136-145 L [facility] HoustonPotassium Acfnz5825-33-72 07:03:00* Test Item Value Reference Range Interpretation Comments Potassium Level (test code = 2823-3) 3.7 3.5-5.1 [facility] HoustonChloride Gdtyh3605-32-40 07:03:00* Test Item Value Reference Range Interpretation Comments Chloride Level (test code = 2075-0) 100 98-107 [facility] HoustonCarbon Dioxide Iehho7395-25-98 07:03:00* Test Item Value Reference Range Interpretation Comments Carbon Dioxide Level (test code = 2028-9) 24 22-29 [facility] HoustonAnion Upx0941-44-47 07:03:00* Test Item Value Reference Range Interpretation Comments Anion Gap (test code = 91744-4) 13.7 8-16 [facility] HoustonBlood Urea Djyaxknl5167-78-80 07:03:00* Test Item Value Reference Range Interpretation Comments Blood Urea Nitrogen (test code = 3094-0) 9 7-26 [facility] HoustonCreatinine2018-07-31 07:03:00* Test Item Value Reference Range Interpretation Comments Creatinine (test code = 2160-0) 0.98 0.72-1.25 [facility] HoustonBUN/Creatinine Fyodv7833-88-23 07:03:00* Test Item Value Reference Range Interpretation Comments BUN/Creatinine Ratio (test code = 3097-3) 9 6-25 [facility] HoustonEstimat Glomerular Filtration Rate 2017-09-07 07:03:00* Test Item Value Reference Range Interpretation Comments Estimat Glomerular Filtration Rate (test code = 46715-1) 60- >60 Ranges were taken from the National Kidney Disease Education Program and the [facility] Kidney Foundation literature.Reference ranges:60 or greater: Prifzp73-68 ( for 3 consecutive months): Chronic kidney disease 15 or less: Kidney failureNexus Children's Hospital HoustonGlucose Fcjmh7419-24-43 07:03:00* Test Item Value Reference Range Interpretation Comments Glucose Level (test code = RAA4980) 100 74-118 [facility] HoustonCalcium Kxkrj8954-96-39 07:03:00* Test Item Value Reference Range Interpretation Comments Calcium Level (test code = 84259-6) 9.2 8.4-10.2 [facility] HoustonTotal Muolyadcz7263-94-76 07:03:00* Test Item Value Reference Range Interpretation Comments Total Bilirubin (test code = 1975-2) 0.6 0.2-1.2 [facility] HoustonAspartate Amino Transf (AST/SGOT) 2017-09-07 07:03:00* Test Item Value Reference Range Interpretation Comments Aspartate Amino Transf (AST/SGOT) (test code = Aspartate Amino Transf (AST/SGOT)) 60 5-34 H [facility] HoustonAlanine Aminotransferase (ALT/SGPT) 2017-09-07 07:03:00* Test Item Value Reference Range Interpretation Comments Alanine Aminotransferase (ALT/SGPT) (test code = 1742-6) 52 0-55 [facility] Ckxuhcy4614-59-88 07:03:00* Test Item Value Reference Range Interpretation Comments Total Protein (test code = 2885-2) 6.3 6.5-8.1 L [facility] HoustonAlbumin2018-07-31 07:03:00* Test Item Value Reference Range Interpretation Comments Albumin (test code = 1751-7) 3.5 3.5-5.0 [facility] HoustonGlobulin2018-07-31 07:03:00* Test Item Value Reference Range Interpretation Comments Globulin (test code = 80243-4) 2.8 2.3-3.5 [facility] HoustonAlbumin/Globulin Shukl8965-87-76 07:03:00 * Test Item Value Reference Range Interpretation Comments Albumin/Globulin Ratio (test code = 1759-0) 1.3 0.8-2.0 [facility] HoustonAlkaline Yzftgilijwt2859-92-07 07:03:00* Test Item Value Reference Range Interpretation Comments Alkaline Phosphatase (test code = 6768-6) 42 40-150 [facility] HoustonCeruloplasmin2018-07-30 19:50:00* Test Item Value Reference Range Interpretation Comments Ceruloplasmin (test code = 2064-4) 17.4 16.0-31.0 Performed at: DA - [facility] [place] [id number] [facility] [address], [place], [place] [id number] 4Lab Director: BRIAN Winter MD, Phone: [phone] Children's Hospital HoustonAnti-Mitochondrial Dgppsgwp0419-03-30 19:50:00* Test Item Value Reference Range Interpretation Comments Anti-Mitochondrial Antibody (test code = 52023-7) 4.4 0.0- 20.0 Negative 0.0 - 20.0 Equivocal 20.1 - 24.9 Positive > 24.9Mitochondrial (M2) Antibodies are found in 90-96% ofpatients with primary bi liary cirrhosis.Performed at: - [facility] [id number] Director: Kendall Bell MD, Phone: [phone] Children's Hospital HoustonHepatitis A IgM Fxwsmmto5404-81-80 10:59:00* Test Item Value Reference Range Interpretation Comments Hepatitis A IgM Antibody (test code = 15605-5) Negative [facility] B Surface Ziopfvs3589-68-69 10:59:00* Test Item Value Reference Range Interpretation Comments Hepatitis B Surface Antigen (test code = 5196-1) Negative [facility] B Core IgM Patcorpc8332-21-07 10:59:00* Test Item Value Reference Range Interpretation Comments Hepatitis B Core IgM Antibody (test code = 01164-8) Negative [facility] C Liulcbue4948-28-97 10:59:00* Test Item Value Reference Range Interpretation Comments Hepatitis C Antibody (test code = 27188-1) -0.1 Reference Range: 0.0 - 0.9 s/co ratioNegative: < 0.8Indeterminate: 0.8 - 0.9Positive: > 0.9The CDC recommends that a positive HCV antibody resultbe followed up with a HCV Nucleic Acid Amplificationtest (138383).Testing performed by:[employer] [address] [id number]: Goran Espinoza [facility] HospitalCreatine Tvdotd4356-58-01 06:57:00* Test Item Value Reference Range Interpretation Comments Creatine Kinase (test code = 2157-6) 68 30-200 [facility] HoustonAmmonia2018-07-29 05:10:00* Test Item Value Reference Range Interpretation Comments Ammonia (test code = 17629-5) 74 31-123 [facility] HoustonAnti-Nuclear Antibody Sotxpk8692-41-28 13:26:00* Test Item Value Reference Range Interpretation Comments Anti-Nuclear Antibody Screen (test code = 5048-4) Negative . Negative <1:80 Borderline 1:80 Positive > 1:80Performed at: - [facility] [id number] 3Lab Director: Goran Espinoza MD, Phone: [phone] Children's Hospital HoustonVitamin B12 Cqjyd1344-53-26 06:15:00* Test Item Value Reference Range Interpretation Comments Vitamin B12 Level (test code = 73929-5) 634 213816 [facility] HoustonFolate2018-07-28 06:15:00* Test Item Value Reference Range Interpretation Comments Folate (test code = 2284-8) 15.4 7.0-15.4 [facility]Ferritin2018-07-28 05:55:00* Test Item Value Reference Range Interpretation Comments Ferritin (test code = 2276-4) 350.72 21.81-274.66 H [facility] HoustonPhosphorus Xqqvr9541-11-75 05:45:00* Test Item Value Reference Range Interpretation Comments Phosphorus Level (test code = BRE8470) 2.8 2.3-4.7 [facility] HoustonMagnesium Wdxww1239-85-01 05:45:00* Test Item Value Reference Range Interpretation Comments Magnesium Level (test code = 33424-1) 1.5 1.3-2.1 [facility] HoustonIron Iivmc1522-93-41 05:36:00* Test Item Value Reference Range Interpretation Comments Iron Level (test code = 2498-4) 53 65-175 L [facility] HoustonTotal Iron Binding Dbdxcjnl8738-28-24 05:36:00* Test Item Value Reference Range Interpretation Comments Total Iron Binding Capacity (test code = 2500-7) 382 261-4 78 [facility] HoustonPercent Iron Hxulsscjpm1883-72-99 05:36:00* Test Item Value Reference Range Interpretation Comments Percent Iron Saturation (test code = 2502-3) 14 15-50 L [facility] HoustonTransferrin2018-07-28 05:36:00* Test Item Value Reference Range Interpretation Comments Transferrin (test code = 3034-6) 273 174-364 [facility] HoustonPercent Reticulocyte Awesx8431-61-83 05:22:00* Test Item Value Reference Range Interpretation Comments Percent Reticulocyte Count (test code = 63277-7) 2.5 0.8-2 .2 H [facility] HoustonHEPTOBILIARY W UVTQI3272-90-60 14:24:00 [facility] [address] [place] [address] Patient Name: SHEFALI HERMAN MR #: [id number] : [birth year] Age/Sex: 57/M Req #: [id number] Adm Physician: RYLEE FLORES MD Ordered by: RYLEE AMOR MD Report #: [id number] Location: ICU Room/Bed: ICU [facility] Procedure: [id number] NM/HEPTO BILIARY W PHARM Exam Date: 09/03/17 [...] RYLEE AMOR MD CHEST SINGLE (PORTABLE)2017-09-03 06:50:00 [place] [address] Patient Name: SHEFALI HERMAN MR #: [id number] : 1960 Age/Sex: 57/M Req #: [id number] Adm Physician: RYLEE AMOR MD Ordered by: APRIL MC NP Report #: [id number] Location: ICU Room/Bed: ICU [facility] Procedure: [id number] DX/CHEST SINGLE (PORTABLE) Exam Date: 09/03/17 Exam [...] FLOWER on 09/03/1750 COPY TO: APRIL MC FORESTRY AID Creatine Kinase SD8189-05-74 06:14:00* Test Item Value Reference Range Interpretation Comments Creatine Kinase MB (test code = 62307-8) 6.20 0-5.0 H [facility] HoustonTroponin Y7777-21-01 06:14:00* Test Item Value Reference Range Interpretation Comments Troponin I (test code = VXF5994) -0.001 0-0.300 [facility] HoustonUric Kash5911-81-56 15:11:00* Test Item Value Reference Range Interpretation Comments Uric Acid (test code = 3084-1) 4.0 4.8-8.0 L [facility] HoustonCT ABDOMEN/PELVIS M2185-02-06 13:05:00 [place] [address] Patient Name: SHEFALI HERMAN MR #: [id number] : [birth year] Age/Sex: 57/M Req #: [id number] Adm Physician: Ordered by: APRIL MC FORESTRY AID Report #: [id number] Location: ER Room/Bed: Procedure: [id number] CT/CT ABDOMEN/PELVIS W Exam Date: 09/02/17 Exam [...] COPY TO: APRIL MC NP CHEST 2 FPDTE8749-24-31 12:53:00 [place] [address] Patient Name: SHEFALI HERMAN MR #: [id number] : 1960 Age/Sex: 57/M Req #: [id number] Adm Physician: Ordered by: APRIL MC NP Report #: [id number] Location: ER Room/Bed: Procedure: [id number] DX/CHEST 2 VIEWS Exam Date: 09/02 Exam Time: 1220 REPORT STATUS: Signed IA OCEDURE: X-RAY CHEST, TWO VIEWS COMPARISON: 11/13/2016 [...] on 09/02/17 1253 COPY TO: APRIL MC FORESTRY AID Urine FDS4515-19-54 11:40:00* Test Item Value Reference Range Interpretation Comments Urine WBC (test code = 5821-4) 0-5 0-5 [facility] Houston[facility] TBP3697-30-81 11:40:00* Test Item Value Reference Range Interpretation Comments Urine RBC (test code = 11293-2) 6-10 0-5 H [facility] HoustonUrine Zhvjyyay7156-14-98 11:40:00* Test Item Value Reference Range Interpretation Comments Urine Bacteria (test code = 25737-3) MANY NONE H [facility] HoustonUrine Epithelial Jurkz8330-44-28 11:40:00 * Test Item Value Reference Range Interpretation Comments Urine Epithelial Cells (test code = 15820-5) FEW NONE [facility] HoustonU[facility] Hyaline Kvarq6112-42-34 11:40:00* Test Item Value Reference Range Interpretation Comments Urine Hyaline Casts (test code = 63368-7) 11-15 0-1 H [facility] HoustonUrine Orxtr9310-99-03 11:40:00* Test Item Value Reference Range Interpretation Comments Urine Mucus (test code = 8247-9) FEW RARE H [facility] HoustonAmylase Kjhhv0354-45-48 11:32:00* Test Item Value Reference Range Interpretation Comments Amylase Level (test code = 1798-8) 36 25-125 [facility] HoustonLipase2018-07-26 11:32:00* Test Item Value Reference Range Interpretation Comments Lipase (test code = 3040-3) 41 8-78 [facility] HoustonUrine Oeqwj0203-85-47 11:20:00* Test Item Value Reference Range Interpretation Comments Urine Color (test code = 5778-6) YELLOW YELLOW [facility] HoustonU[facility] Avtfxui4891-86-12 11:20:00* Test Item Value Reference Range Interpretation Comments Urine Clarity (test code = 90368-3) CLEAR CLEAR [facility] HoustonUrine Specific Xfimjgt9027-98-63 11:20:00 * Test Item Value Reference Range Interpretation Comments Urine Specific Rickreall (test code = 5811-5) 1.030 1.010-1.02 5 H [facility] HoustonUrine vU4819-40-30 11:20:00* Test Item Value Reference Range Interpretation Comments Urine pH (test code = 97383-5) 6 5-7 [facility] Leukocyte Wvbulfps9682-52-78 11:20:00* Test Item Value Reference Range Interpretation Comments Urine Leukocyte Esterase (test code = 5799-2) NEGATIVE NEGATIVE [facility] HoustonU[facility] Xrqbbxz5425-70-44 11:20:00* Test Item Value Reference Range Interpretation Comments Urine Nitrite (test code = 56852-7) NEGATIVE NEGATIVE [facility] HoustonU[facility] Qowlluw0892-20-02 11:20:00* Test Item Value Reference Range Interpretation Comments Urine Protein (test code = 5804-0) TRACE NEGATIVE H [facility] HoustonUrine Glucose (UA)2017-09-02 11:20:00* Test Item Value Reference Range Interpretation Comments Urine Glucose (UA) (test code = 2349-9) NEGATIVE NEGATIVE [facility] HoustonU[facility] Vigwcad3149-33-92 11:20:00* Test Item Value Reference Range Interpretation Comments Urine Ketones (test code = 57386-4) TRACE NEGATIVE H [facility] HoustonUrine Tgglmdbmxftl5515-00-64 11:20:00* Test Item Value Reference Range Interpretation Comments Urine Urobilinogen (test code = 34479-1) 1 0.2-1 [facility] HoustonU[facility] Mahjgwvbp8195-27-89 11:20:00* Test Item Value Reference Range Interpretation Comments Urine Bilirubin (test code = 1978-6) 1+ NEGATIVE H Confirmatory test currently unavailable. False positive results may occur.[facility] HoustonUrine Jzfuv9838-82-35 11:20:00* Test Item Value Reference Range Interpretation Comments Urine Blood (test code = 48928-5) NEGATIVE NEGATIVE [facility] HoustonProthrombin Lzcq3834-24-80 11:18:00* Test Item Value Reference Range Interpretation Comments Prothrombin Time (test code = 5902-2) 13.2 11.9-14.5 [facility] HoustonProthromb Time International Ratio 2017-09-02 11:18:00* Test Item Value Reference Range Interpretation Comments Prothromb Time International Ratio (test code = 6301-6) 1.08 Oral Anticoagulant Therapy INR Values:1. Low Intensity Therapy 1.5 - 2.02 . Moderate Intensity Therapy 2.0 - 3.03. High Intensity Therapy(1) 2.5 - 3. 54. High Intensity Therapy(2) 3.0 - 4.05. Panic Value INR > 5.0 [facility] HoustonActivated Partial Thromboplast Time 2017-09-02 11:18:00* Test Item Value Reference Range Interpretation Comments Activated Partial Thromboplast Time (test code = 69810-7) 27.9 23.8-35.5 [facility] Occult Iyhca9014-02-67 16:43:00* Test Item Value Reference Range Interpretation Comments Stool Occult Blood (test code = 2335-8) NEGATIVE NEGATIVE [facility] HoustonUrine Opiates Ccizaf4745-00-57 06:09:00* Test Item Value Reference Range Interpretation Comments Urine Opiates Screen (test code = 02244-6) NEGATIVE NEGATIVE [facility] HoustonU[facility] Barbiturates Rfbrlh3467-48-33 06:09:00* Test Item Value Reference Range Interpretation Comments Urine Barbiturates Screen (test code = 618431032) NEGATIVE NEGA TIVE [facility] HoustonU[facility] Phencyclidine Qtqifd9228-67-94 06:09:00* Test Item Value Reference Range Interpretation Comments Urine Phencyclidine Screen (test code = 10174-9) NEGATIVE NEGAT TOM [facility] HoustonU[facility] Amphetamines Oeuvwz1892-03-93 06:09:00* Test Item Value Reference Range Interpretation Comments Urine Amphetamines Screen (test code = 54014-7) NEGATIVE NEGATI VE [facility] HoustonU[facility] Benzodiazepines Yotpzm6943-85-58 06:09:00* Test Item Value Reference Range Interpretation Comments Urine Benzodiazepines Screen (test code = 52158-6) POSITIVE NEG ATIVE H This test provides only a screen. Positive results should be repeated by a confi rmatory test.[facility] HoustonU[facility] Cocaine Screen 2016-11-15 06:09:00* Test Item Value Reference Range Interpretation Comments Urine Cocaine Screen (test code = Urine Cocaine Screen) NEGATIVE NEGATIVE [facility] HoustonU[facility] Cannabinoids Gphwhh0117-81-44 06:09:00* Test Item Value Reference Range Interpretation Comments Urine Cannabinoids Screen (test code = 51238-7) NEGATIVE NEGATI VE THESE RESULTS ARE FOR MEDICAL TREATMENT ONLYTHIS REPORT CONTAINS UNCONFIR MED SCREENING RESULTS*POSITIVE RESULTS WILL BE CONFIRMED BY REFERENCE LAB UPON R EQUEST CUT-OFFDRUG CLASS CONCENTRATION ng/mLAmphetamines 1000Methamphetamines 1000Cocaine 300Opiate 300Phencyc lidine 25Cannabinoid 50Barbiturates 300Benzodiazepine 300Methadone 300[facility] HospitalEth[facility] Alcohol Htqzr9284-52-27 18:55:00* Test Item Value Reference Range Interpretation Comments Ethyl Alcohol Level (test code = 5643-2) 36.1 0.0-10.0 H [facility] HoustonCT [facility]EN[facility]PELVIS WO [facility] [address] [place] [address] Patient Name: SHEFALI HERMAN MR #: [id number] : 1960 Age/Sex: 56/M Req #: [id number] Adm Physician: Ordered by: SHARAN CHRISTIANSON FORESTRY AID Report #: [id number] Location: ER Room/Bed: Procedure: [id number] CT/CT ABDOMEN/PELVIS WO Exam Date: 11/13/16 Exam [...] FLOWER on 11/13/162027 COPY TO: SHARAN CHRISTIANSON FORESTRY AID CHEST SINGLE (PORTABLE) [place] [address] Patient Name: SHEFALI HERMAN MR #: [id number] : 1960 Age/Sex: 56/M Req #: [id number] Adm Physician: Ordered by: SCOOBY ZAIDI MD Report #: [id number] Location: ER Room/Bed: Procedure: [id number] DX/CHEST SINGLE (PORTABLE) Exam Date: Exam Time: REPORT STATUS: Signed IA OCEDURE: A single AP view of the [...] HAYWARD MD Electronically S igned By: JOSE HAYWARD MD on 11/13/161835 Transcribed By: LILIANA on 11/13/161835 COPY TO: SCOOBY ZAIDI MD
[2019-09-21] MEDS ORDERED: ONDANSETRON HCL INJ 2MG/ML 2ML 2 MG/ML VIAL IV PRN (17:15)
[2019-09-21] MEDS ORDERED: ACETAMINOPHEN/CODEINE 300MG - 30MG TAB PO PRN (17:15)
[2019-09-21 17:26] VITALS: BP 137/96
[2019-09-21 17:26] LABS: BILIRUBIN,URINE NEGATIVE (NEGATIVE); CLARITY,URINE CLEAR (CLEAR); COLOR,URINE YELLOW (YELLOW); KETONES,URINE NEGATIVE (NEGATIVE); LEUKOCYTE ESTERASE ,URINE NEGATIVE (NEGATIVE); NITRITE,URINE NEGATIVE (NEGATIVE); PROTEIN,URINE DIPSTICK NEGATIVE (NEGATIVE); URINE UROBILINOGEN 0.2 mg/dL (0.2 - 1)
[2019-09-21 17:34] VITALS: BP 137/96
--- NOTE | 2019-09-21 17:35 | NUR ---
patient received from ER via stretcher. ambulates well. see admit assess. a fib 120. vitals stable with no distress.
[2019-09-21 17:48] LABS: BACTERIA,URINE RARE /HPF; EPITHELIAL CELLS,URINE RARE /LPF; RBC,URINE 0-5 /HPF (0-5); WBC,URINE (MAN) 0-5 /HPF (0-5)
[2019-09-21] MEDS: ENOXAPARIN SOD INJ 60 MG/0.6 ML SYR SC SCH (17:55)
[2019-09-21] MEDS: METOPROLOL TARTRATE INJ 1 MG/ML VIAL IV PRN (17:56)
[2019-09-21 20:00] VITALS: BP 110/55
[2019-09-21 20:45] VITALS: BP 110/55
[2019-09-21] MEDS ORDERED: MELATONIN 5 MG TABLET PO PRN (21:00)
--- NOTE | 2019-09-21 21:15 | NUR ---
PATIENT RESTING IN BED IN STABLE CONDITION, NO SIGNS OF DISTRESS NOTED. PATIENT IS AMBULATORY AND TELEMETRY IS RUNNING AT 111 AFIB. BED IN LOWEST POSITION, BOTH SIDE RAILS ARE UP, CALL LIGHT IS WITHIN EASY REACH, WILL CONTINUE TO MONITOR.
[2019-09-21 23:39] LABS: CREATINE KINASE 73 IU/L (30-200)
[2019-09-22] VITALS (9 sets, daily range): BP systolic 106–120; BP diastolic 50–82
[2019-09-22] MEDS: ACETAMINOPHEN 325 MG TAB PO PRN ×3 (02:07→20:32)
[2019-09-22] MEDS: METOPROLOL TARTRATE INJ 1 MG/ML VIAL IV PRN (02:09)
--- NOTE | 2019-09-22 02:12 | NUR ---
PATIENT WOKE IN A PANIC, VOICED HE HAD A HEADACHE. PATIENT SHOWED AFIB AND HEART RATE WAS AT 135. GAVE TYLENOL AND METOPROLOL, CONTINUING TO MONITOR THE SITUATION.
[2019-09-22 05:11] LABS: BASOPHILS % 0.9 % (0.0-1.0); EOSINOPHILS # (AUTO) 0.1 (0.0-0.4); EOSINOPHILS % 1.7 % (0.0-6.0); HEMATOCRIT 30.9 % (38.2-49.6); HEMOGLOBIN 9.8 g/dL (14.0-18.0); LYMPHOCYTES # (AUTO) 0.7 (1.0-3.2); LYMPHOCYTES % 18.8 % (18.0-39.1); MEAN CORPUSCULAR HEMOGLOBIN 28.8 pg (28-32); MEAN CORPUSCULAR HGB CONC 31.7 g/dL (31-35); MEAN CORPUSCULAR VOLUME 90.9 fL (81-99); MONOCYTES # (AUTO) 0.3 (0.2-0.8); MONOCYTES % 8.5 % (4.4-11.3); NEUTROPHILS # (AUTO) 2.5 (2.1-6.9); NEUTROPHILS % 69.8 % (38.7-80.0); PLATELET COUNT 74 x10e3/uL (140-360); RED CELL DISTRIBUTION WIDTH 19.3 % (11.7-14.4)
[2019-09-22 05:26] LABS: ALBUMIN 3.2 g/dL (3.5-5.0); ANION GAP 15.3 mmol/L (8-16); CREATININE, SERUM 1.59 mg/dL (0.72-1.25); POTASSIUM 4.3 mmol/L (3.5-5.1)
[2019-09-22 05:59] LABS: CREATINE KINASE 63 IU/L (30-200)
--- NOTE | 2019-09-22 07:00 | NUR ---
BEDSIDE SHIFT REPORT RECEIVED PT IN STABLE CONDITION, DENIES PAIN AT THIS TIME, UPDATED ON POC VOICED UNDERSTANDING, RUE 20G NO SS OF INFILTRATION NOTED, NO OTHER CO VOICED CALL LIGHT IN REACH WILL CONTINUE TO MONITOR
[2019-09-22] MEDS ORDERED: TORSEMIDE5 MG PO (08:34)
[2019-09-22] MEDS ORDERED: AMLODIPINE BESY10 MG PO (08:34)
[2019-09-22] MEDS: ASPIRIN 81 MG CHEW TAB PO SCH (08:34)
[2019-09-22] MEDS ORDERED: BENICAR20 MG PO (08:34)
[2019-09-22] MEDS ORDERED: ZETIA10 MG PO (08:34)
[2019-09-22] MEDS ORDERED: CRESTOR20 MG PO (08:34)
[2019-09-22] MEDS ORDERED: CLARITIN10 MG PO (08:34)
[2019-09-22] MEDS: ENOXAPARIN SOD INJ 60 MG/0.6 ML SYR SC SCH (08:40)
[2019-09-22] MEDS: TORSEMIDE 10 MG TAB PO SCH (11:05)
[2019-09-22] MEDS: CRESTOR 10MG PO SCH (11:05)
--- NOTE | 2019-09-22 11:41 | Diagnostic Imaging Report ---
EXAMINATION: CT of the cervical spine without contrast. HISTORY: Status post fall, pain COMPARISON: None available TECHNIQUE: Multidetector helical axial images were obtained without contrast from the foramen magnum to T1. Dose modulation, iterative reconstruction, and/or weight based adjustment of the mA/kV was utilized to reduce the radiation dose to as low as reasonably achievable. FINDINGS: Alignment: Normal alignment and lordosis Soft tissues: Normal Vertebrae: Normal height and density. No acute fracture, infection or neoplasm Degenerative changes: C1-C2: Normal C2-C3: Prominent facet arthrosis mainly on the left side. Moderate left foraminal stenosis. C3-C4: Mild facet arthrosis without significant canal or foraminal stenoses. Prominent subchondral cyst in the left inferior C3-C4 facet is likely due to degenerative changes. C4-C5: Mild facet arthrosis. No stenoses. C5-C6: Mild uncovertebral and facet arthrosis without stenosis. C6-C7: Disc osteophyte complex formation, mild uncovertebral arthrosis. No canal or foraminal stenosis. C7-T1: Normal IMPRESSION: 1. No acute cervical spine postraumatic abnormalities. 2. Mild chronic degenerative changes as detailed above. Note: Acute postraumatic spinal cord, vascular or ligamentous injuries cannot adequately be assessed by CT. Signed by: Dr. Ashanti Jain M.D. on 09/22/2019 11:38 AM
[2019-09-22] MEDS ORDERED: SODIUM CHLORIDE 0.9% 1000ML 1,000 ML IV SCH (12:30)
--- NOTE | 2019-09-22 13:14 | Diagnostic Imaging Report ---
EXAMINATION: Head CT HISTORY: 59-year-old male, status post fall and pain. COMPARISON: None. TECHNIQUE: Helical axial images of the head were obtained. Reformatted coronal and sagittal images from the axial data. Dose modulation, iterative reconstruction, and/or weight based adjustment of the mA/kV was utilized to reduce the radiation dose to as low as reasonably achievable. Image quality: Motion/streaking artifact limits the evaluation of the skull base and posterior cranial fossa. FINDINGS: Parenchyma: 1. Few scattered multicompartmented recommending hypodensities, most likely nonspecific chronic microvascular ischemic changes. 2. No mass or hemorrhage. No CT evidence of acute territorial vascular insult. Extra-axial spaces:No abnormal density. No extra-axial fluid collections Brain volume: Normal for age. Ventricles: No hydrocephalus or displacement. Arteries: No density suggestive of thrombus. Dural sinuses: No abnormal density. Foramen magnum: No mass, Chiari malformation, or basilar invagination. Sella: No obvious mass. Paranasal/mastoid sinuses: Partial opacification of the partially visualized right maxillary sinus with a sclerotic aldana, likely from chronic inflammatory process. Hyperpneumatization of the bilateral mastoid or cells Skull/Scalp: No lytic or blastic lesions. No fractures. IMPRESSION: 1. No acute posttraumatic intracranial hemorrhage. 2. Mild nonspecific chronic microvascular ischemic changes. Signed by: Dr. Ashanti Jain M.D. on 09/22/2019 1:10 PM
[2019-09-22] MEDS: METOPROLOL TARTRATE 25 MG TAB PO SCH ×3 (13:26→23:34)
--- NOTE | 2019-09-22 15:30 | NUR ---
L FA 20G X 1 STICK TOLERATED WELL, IVF INFUSING WILL CONTINUE OT MONITOR
[2019-09-22] MEDS: RIVAROXABAN 20 MG TABLET PO SCH (17:00)
--- NOTE | 2019-09-22 18:47 | Consultation ---
DATE OF CONSULTATION: 09/22/2019 Cardiology Consultation REASON FOR CONSULTATION: Atrial fibrillation. CHIEF COMPLAINT: Fall. HISTORY OF PRESENT ILLNESS: The patient is a 59-year-old man with history of hypertension, hyperlipidemia, coronary artery disease, status post HI and stent about 15 years ago[address] with Dr. Esperanza arizmendi, who presented after a fall at work. He said he tripped and fell while he was walking across the street at work, hit his head because he has papers in his hand and was unable to break his fall. Denies any chest pain, shortness of breath, syncope, or dizziness. He was evaluated at [facility] and was noted to be in atrial fibrillation with RVR, was sent to the hospital for further evaluation and care. Currently, the patient says he feels like he has some palpitations and feels night sweats, which he thinks may be related to his atrial fibrillation symptoms. Denies any chest pain, shortness of breath, orthopnea, or lower extremity edema. Denies any history of bleeding. PAST MEDICAL HISTORY: 1. Coronary artery disease, status post HI and stent 15 years ago. 2. Hypertension. 3. Hyperlipidemia. SOCIAL HISTORY: Does not smoke, drink, or abuse drugs. FAMILY HISTORY: Noncontributory. REVIEW OF SYSTEMS: As per HPI, otherwise negative. OUTPATIENT MEDICATIONS: Reviewed. ALLERGIES: THE PATIENT IS ALLERGIC TO PENICILLINS AND CODEINE. OBJECTIVE: VITAL SIGNS: Temperature afebrile, pulse 92, respiratory rate 18, blood pressure 110/82, and saturating 100% on room air. GENERAL: Middle-aged man, in no acute distress. CARDIOVASCULAR: Irregular rate and rhythm. No murmurs, rubs, or gallops. LUNGS: Clear to auscultation anteriorly. ABDOMEN: Obese, soft, nontender, nondistended. NEURO AND PSYCH: Alert and oriented to person, place, and time. Normal affect. INPATIENT MEDICATIONS: Reviewed. LABORATORY DATA: Reviewed. Notable for hemoglobin of 9.8 with a normal MCV. Creatinine is 1.5 with GFR 45. Troponins are negative. Thyroid function is normal. IMAGING DATA: Reviewed. CT of the cervical spine showed no acute posttraumatic abnormalities and mild degenerative changes. Echocardiogram reviewed, shows hyperdynamic LV function. No wall motion abnormalities. TELEMETRY DATA: Reviewed. Shows atrial fibrillation with RVR. Heart rate varies from about 100 to 130. ASSESSMENT AND PLAN: 1. Atrial fibrillation with rapid ventricular response, new diagnosis. 2. History of coronary artery disease, status post myocardial infarction and stenting about 15 years ago. PLAN: Troponins are negative. EKG without ischemia has been ruled out for acute HI. 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 Echocardiogram shows normal LV function. We will start metoprolol 25 mg q.6 hours to rate control for atrial fibrillation. Also, start Xarelto 15 mg daily for his atrial fibrillation for stroke prevention. Does not have any overt history of bleeding, but he is anemic, so this will need to be monitored. Given fall and head trauma, first would need to get a CT scan to make sure that there was no bleeding before starting Xarelto. Okay to discontinue Lovenox. If CT head is negative then Xarelto to be started. MD SYLVIA ShayP/MELISSA /[id number]
--- NOTE | 2019-09-22 19:00 | NUR ---
Resumed care of patient. Patient awake and sitting up in bed, respirations even and unlabored on room air, afib per telemetry, no s/s of distress at this time. Bed locked and in lowest position, side rails upx3, alarm on, call light placed within reach. Patient instructed to call for assistance if needed, verbalized understanding. All safety measures in place.
[2019-09-22] MEDS: EZETIMIBE 10 MG TAB PO SCH (20:32)
[2019-09-23] VITALS (9 sets, daily range): BP systolic 97–125; BP diastolic 69–82
[2019-09-23 05:02] LABS: BASOPHILS % 0.9 % (0.0-1.0); EOSINOPHILS # (AUTO) 0.1 (0.0-0.4); EOSINOPHILS % 1.8 % (0.0-6.0); HEMATOCRIT 34.4 % (38.2-49.6); HEMOGLOBIN 10.3 g/dL (14.0-18.0); LYMPHOCYTES # (AUTO) 0.7 (1.0-3.2); LYMPHOCYTES % 21.5 % (18.0-39.1); MEAN CORPUSCULAR HEMOGLOBIN 29.3 pg (28-32); MEAN CORPUSCULAR HGB CONC 29.9 g/dL (31-35); MONOCYTES # (AUTO) 0.3 (0.2-0.8); MONOCYTES % 7.9 % (4.4-11.3); NEUTROPHILS # (AUTO) 2.2 (2.1-6.9); NEUTROPHILS % 67.9 % (38.7-80.0); PLATELET COUNT 73 x10e3/uL (140-360); RED BLOOD COUNT 3.51 x10e6/uL (4.3-5.7); RED CELL DISTRIBUTION WIDTH 19.2 % (11.7-14.4)
[2019-09-23 05:20] LABS: ALBUMIN 3.3 g/dL (3.5-5.0); ALBUMIN/GLOBULIN RATIO 0.9 (0.8-2.0); ANION GAP 17.6 mmol/L (8-16); CALCIUM 9.1 mg/dL (8.4-10.2); CREATININE, SERUM 1.42 mg/dL (0.72-1.25); POTASSIUM 4.6 mmol/L (3.5-5.1)
[2019-09-23] MEDS: METOPROLOL TARTRATE 25 MG TAB PO SCH ×4 (06:35→23:57)
--- NOTE | 2019-09-23 07:00 | NUR ---
bedside shift report received pt in stable condition, denies pain at this time updated on poc voiced understanding, l wrist 20g no ss of infiltration noted, no other co voiced call light in reach will continue to monitor
--- NOTE | 2019-09-23 07:00 | NUR ---
Bedside report given to oncoming nurse. Patient awake and resting in bed, no s/s of distress at this time. All safety measures in place.
[2019-09-23] MEDS: PANTOPRAZOLE SOD 40 MG TABEC PO SCH (08:35)
[2019-09-23] MEDS: TORSEMIDE 10 MG TAB PO SCH (08:35)
[2019-09-23] MEDS: ASPIRIN 81 MG CHEW TAB PO SCH (08:35)
[2019-09-23] MEDS: CRESTOR 10MG PO SCH (08:35)
[2019-09-23] MEDS ORDERED: TYLENOL WITH C1 EACH PO (09:48)
[2019-09-23] MEDS ORDERED: ACETAMINOPHEN/CODEINE 300MG - 30MG TAB PO PRN (10:00)
--- NOTE | 2019-09-23 10:08 | Progress Note ---
DATE: Cardiology Progress Note SUBJECTIVE: The patient reports feeling much better. However, he does notice some dizziness upon standing. Denies any palpitations or shortness of breath. OBJECTIVE: VITAL SIGNS: Temperature 98.0, pulse 121, respiratory rate 20, blood pressure 111/79, and oxygen saturation 98% on room air. GENERAL: Alert and oriented x3, resting comfortably in bed. Does not appear to be in any acute distress. NECK: Supple. No JVD noted. CARDIOVASCULAR: Irregular rate and rhythm. Normal S1 and S2. Tachycardia. No murmurs. No gallops. LUNGS: Clear to auscultation throughout. No wheezing. No rhonchi or crackles. ABDOMEN: Rounded, soft, and nontender. EXTREMITIES: Lower extremity, no edema. Face with a big bruise noted surrounding the left eye. CARDIOVASCULAR MEDICATIONS: Torsemide 5 mg p.o. daily, lovastatin 20 mg p.o. daily, aspirin 81 p.o. daily, metoprolol 25 p.o. q.6 hours, and Xarelto 20 mg p.o. daily. LABORATORY DATA: WBC 3.30, hemoglobin 10.3, hematocrit 34.4, and platelets 73. Sodium 135, potassium 4.6, BUN 14, creatinine 1.42, and glucose 103. AST 53, ALT 25, and alkaline phosphatase 213. Telemetry, atrial fibrillation with moments of rapid ventricular response. IMPRESSION: 1. Atrial fibrillation with rapid ventricular response. This is a new diagnosis. 2. History of coronary artery disease, status post myocardial infarction and stenting about 14 years ago. PLAN: Continue the above-listed cardiac medications. Doses will be adjusted and we will add an antiarrhythmic. 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 We will continue to monitor this patient very closely. Monitor platelets. Dictated by Soni Tolbert, KENIA MD ANMOL MirandaV/MELISSA /[id number]
[2019-09-23] MEDS: TRAMADOL HCL 50 MG TAB PO PRN ×2 (10:20→17:40)
[2019-09-23] MEDS: DIGOXIN 0.25 MG TAB PO SCH (10:38)
[2019-09-23] MEDS: RIVAROXABAN 20 MG TABLET PO SCH (17:20)
--- NOTE | 2019-09-23 19:10 | NUR ---
RECEIVED BEDSIDE SHIFT REPORT FROM PREVIOUS NURSE. CALL LIGHT WITHIN REACH. PATIENT IN BED.
[2019-09-23] MEDS: EZETIMIBE 10 MG TAB PO SCH (21:00)
[2019-09-24 04:10] VITALS: BP 102/66
[2019-09-24] MEDS: METOPROLOL TARTRATE 25 MG TAB PO SCH (04:52)
[2019-09-24 05:19] LABS: BASOPHILS % 0.8 % (0.0-1.0); EOSINOPHILS # (AUTO) 0.1 (0.0-0.4); EOSINOPHILS % 2.2 % (0.0-6.0); HEMOGLOBIN 10.1 g/dL (14.0-18.0); LYMPHOCYTES # (AUTO) 0.9 (1.0-3.2); LYMPHOCYTES % 24.2 % (18.0-39.1); MEAN CORPUSCULAR HEMOGLOBIN 29.3 pg (28-32); MEAN CORPUSCULAR HGB CONC 31.6 g/dL (31-35); MEAN CORPUSCULAR VOLUME 92.8 fL (81-99); MONOCYTES # (AUTO) 0.4 (0.2-0.8); MONOCYTES % 11.4 % (4.4-11.3); NEUTROPHILS # (AUTO) 2.3 (2.1-6.9); NEUTROPHILS % 61.1 % (38.7-80.0); PLATELET COUNT 61 x10e3/uL (140-360); RED BLOOD COUNT 3.45 x10e6/uL (4.3-5.7); RED CELL DISTRIBUTION WIDTH 18.8 % (11.7-14.4)
[2019-09-24 05:58] LABS: ALBUMIN 3.2 g/dL (3.5-5.0); ANION GAP 15.7 mmol/L (8-16); CREATININE, SERUM 1.24 mg/dL (0.72-1.25); POTASSIUM 3.7 mmol/L (3.5-5.1)
[2019-09-24] MEDS: TRAMADOL HCL 50 MG TAB PO PRN ×2 (06:22)
--- NOTE | 2019-09-24 07:11 | NUR ---
GAVE BEDSIDE SHIFT REPORT TO ONCOMING NURSE. CALL LIGHT WITHIN REACH. PATIENT IN BED. HOURLY ROUNDING PERFORMED.
[2019-09-24 08:00] VITALS: BP 105/73
[2019-09-24 08:28] VITALS: BP 105/73
[2019-09-24] MEDS ORDERED: ULTRAM 50MG50 MG PO (09:09)
[2019-09-24] MEDS ORDERED: XARELTO10 MG PO (09:09)
[2019-09-24] MEDS ORDERED: METOPROLOL TART50 MG PO (09:09)
[2019-09-24] MEDS: ASPIRIN 81 MG CHEW TAB PO SCH (09:19)
[2019-09-24] MEDS: PANTOPRAZOLE SOD 40 MG TABEC PO SCH (09:19)
[2019-09-24] MEDS: CRESTOR 10MG PO SCH (09:19)
[2019-09-24] MEDS: TORSEMIDE 10 MG TAB PO SCH (09:19)
[2019-09-24] MEDS: DIGOXIN 0.25 MG TAB PO SCH (09:20)
--- NOTE | 2019-09-24 11:15 | NUR ---
Patient received discharge orders from once Dr. Weinstein group cleared patient for discharge. Patient was given detailed instructions about new prescriptions and new follow up with senior training and development rep for new onset A-Fib with RVR. Patient verablized understanding and repeated back what his plan was when he left the hospital. Patient's IV was removed at 1100 and covered with a clean dry intact dressing. Patient tele was removed, cleaned, and brought back to the telephone clerk telegraph office. Patient was wheeled to his car at 1105. Patient had no other issues or complaints.
--- NOTE | 2019-09-24 13:49 | Progress Note ---
DATE: Cardiology Progress Note. SUBJECTIVE: The patient is without any new complaints this morning. He states he feels much better. Denies any chest pain or shortness of breath or palpitations. OBJECTIVE: VITAL SIGNS: Temperature 97.9, pulse 102, respiratory rate 22, blood pressure 105/73, oxygen saturation 99% on room air. GENERAL: Alert and oriented x3, resting comfortably in bed. Does not appear to be in any acute distress. HEENT: Face, bruise noted around the left eye. NECK: Supple. No JVD noted. LUNGS: Clear to auscultation throughout. No wheezing. No rhonchi or crackles. CARDIOVASCULAR: Irregular rate and rhythm. Normal S1 and S2. No murmurs. No gallops. ABDOMEN: Soft, and nontender. LOWER EXTREMITIES: No edema. CARDIOVASCULAR MEDICATIONS: 1. Digoxin 0.25 mg p.o. daily. 2. Torsemide 5 mg p.o. daily. 3. Lovastatin 20 mg p.o. daily. 4. Aspirin 81 mg p.o. daily. 5. Zetia 10 mg p.o. at bedtime. 6. Xarelto 20 mg p.o. daily. LABORATORY DATA: WBC 3.68, hemoglobin 10.1, hematocrit 32.2, platelets 61. Sodium 133, potassium 3.7, BUN 11, and creatinine 1.24. AST 35, ALT 22, alkaline phosphatase 215. TELEMETRY: Atrial fibrillation. IMPRESSION: 1. Atrial fibrillation with rapid ventricular response, rate control improved now. 2. History of coronary artery disease status post myocardial infarction and stenting about 14 years ago. 3. Thrombocytopenia. PLAN: Continue the above-listed cardiac medications. The patient is to follow up with Cardiology closely in the next 1 to 2 weeks and reassess condition and also thrombocytopenia. Okay to discharge this patient from a cardiac standpoint. 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 Dictated by Soni Tolbert, KENIA MD ANMOL MirandaV/MODL /[id number]
--- NOTE | 2019-09-25 08:37 | Discharge Summary ---
ADMISSION DIAGNOSES: New onset atrial fibrillation, hypertension, CAD, morbid obesity with a BMI of 40.5. DISCHARGE DIAGNOSES: New onset atrial fibrillation, hypertension, CAD, morbid obesity with a BMI of 40.5 and rule out ACS. HISTORY: Hypertension, [place], migraines, anxiety, CAD, and diverticulitis. SURGICAL HISTORY: Tonsillectomy, appendectomy, colon resection, sinus surgery x2, and left ulnar surgery. FAMILY HISTORY: The patient's mom had a stroke. SOCIAL HISTORY: Occasional alcohol use. HOSPITAL COURSE: A 59-year-old male admits after the doctor at his job noticed he was in atrial fibrillation. He fell at work after tripping on concrete and had to be seen by the doctor at work. He denies any known history of atrial fibrillation. He admits to occasional dizziness and bilateral lower extremity edema. He denies palpitations and falls related to the atrial fibrillation. On admission, the patient was started on Lovenox and metoprolol IV p.r.n. He was placed on telemetry and Cardiology was consulted. On admission, the patient appeared to be in atrial fibrillation at a rate of 106. Chest x-ray was negative. Troponins were negative. Echo was within normal limits. The patient was initially placed on metoprolol q.6 hours, which did not control his heart rate enough so he had to be kept overnight and again digoxin was added and the Lovenox was changed to Xarelto. With the beta-rosendo and digoxin combination the patient's heart rate is now controlled. He will follow up with primary care in 1 to 2 weeks. Due to a fall at work the patient had a CT of the brain and CT of the C-spine, both of which were negative. The patient was given tramadol for pain, which he said helped the pain greatly. 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 Vital signs stable, patient afebrile. Dictated by Tequila Durham NP Dominick Ferrer MD HERIBERTO/MODL /[id number]
== END 2019-09-24 11:12 | disposition home or self-care (01) | DRG 309 ==
LOC: ER 13:30 → ERHOLD 14:55 → MED/SURG 17:18 → OBSVTOIN 09-23 10:18
PROVIDERS: ADMIT Internal Medicine; ATTEND Internal Medicine
DX: I48.19 Other persistent atrial fibrillation (principal); Z68.41 Body mass index [BMI] 40.0-44.9, adult; I25.10 Atherosclerotic heart disease of native coronary artery without angina pectoris; E66.01 Morbid (severe) obesity due to excess calories; D69.6 Thrombocytopenia, unspecified; I25.2 Old myocardial infarction; Z95.5 Presence of coronary angioplasty implant and graft
CPT/HCPCS: 36415; 70450; 71045; 72125; 80053; 80061; 81001; 82550; 82553; 83036; 84436; 84443; 84479; 84484; 85025; 93005; 93306; 99284; G0378; J1650; J7030; U0002

== ENCOUNTER 2020-07-19 07:43 | Inpatient (IN) | payer OTHER ==
[~2020-07-19] VITALS: Ht 175.3 cm; Wt 124.3 kg
[~2020-07-19 07:43] MED LIST changes: +AMLODIPINE BESY10 MG PO; +BENICAR20 MG PO; +CLARITIN10 MG PO; +METOPROLOL TART50 MG PO; +TORSEMIDE5 MG PO; +TYLENOL WITH C1 EACH PO; +ULTRAM 50MG50 MG PO; +XARELTO10 MG PO
[2020-07-19] MEDS ORDERED: SODIUM CHLORIDE 0.9% 1000ML 1,000 ML IV STA (07:54)
[2020-07-19] MEDS ORDERED: PANTOPRAZOLE 40 MG 10ML VIAL IV STA (07:54)
[2020-07-19] MEDS ORDERED: ONDANSETRON HCL INJ 2MG/ML 2ML 2 MG/ML VIAL IV STA (07:54)
[2020-07-19] MEDS ORDERED: OCTREOTIDE ACETATE 0.05 MG/ML AMP IV STA (08:09)
[2020-07-19] MEDS ORDERED: OCTREOTIDE ACETATE 400 MCG in SODIUM CHLORIDE 0.9% 250ML 200 ML IV SCH (08:30)
[2020-07-19 08:45] LABS: ALANINE AMINOTRANSFERASE 16 IU/L (0-55); ALBUMIN 3.5 g/dL (3.5-5.0); ALBUMIN/GLOBULIN RATIO 1.1 (0.8-2.0); ALKALINE PHOSPHATASE 60 IU/L (40-150); BLOOD UREA NITROGEN 25 mg/dL (7-26); BUN/CREATININE RATIO 22 (6-25); CALCIUM 9.2 mg/dL (8.4-10.2); CARBON DIOXIDE 20 mmol/L (22-29); CHLORIDE 105 mmol/L (98-107); CREATINE KINASE 29 IU/L (30-200); CREATININE, SERUM 1.16 mg/dL (0.72-1.25); EST GLOMERULAR FILTRATION RATE > 60 ML/MIN (60-); GLUCOSE 137 mg/dL (74-118); SODIUM 139 mmol/L (136-145)
[2020-07-19 08:51] LABS: INR 1.14; PARTIAL THROMBOPLASTIN TIME 32.7 seconds (23.8-35.5); PROTHROMBIN TIME 15.3 seconds (11.9-14.5)
[2020-07-19] MEDS: OCTREOTIDE ACETATE 500 MCG in SODIUM CHLORIDE 0.9% 250ML 249 ML IV SCH ×2 (08:58→19:06)
[2020-07-19 09:09] LABS: BASOPHILS % 0.4 % (0.0-1.0); EOSINOPHILS # (AUTO) 0.1 (0.0-0.4); EOSINOPHILS % 0.5 % (0.0-6.0); HEMATOCRIT 26.3 % (38.2-49.6); HEMOGLOBIN 8.5 g/dL (14.0-18.0); LYMPHOCYTES # (AUTO) 1.9 (1.0-3.2); LYMPHOCYTES % 17.4 % (18.0-39.1); MEAN CORPUSCULAR HEMOGLOBIN 27.2 pg (28-32); MEAN CORPUSCULAR HGB CONC 32.3 g/dL (31-35); MEAN CORPUSCULAR VOLUME 84.3 fL (81-99); MONOCYTES # (AUTO) 0.7 (0.2-0.8); MONOCYTES % 6.7 % (4.4-11.3); NEUTROPHILS # (AUTO) 7.9 (2.1-6.9); NEUTROPHILS % 74.1 % (38.7-80.0); PLATELET COUNT 159 x10e3/uL (140-360); RED BLOOD COUNT 3.12 x10e6/uL (4.3-5.7); RED CELL DISTRIBUTION WIDTH 17.2 % (11.7-14.4)
[2020-07-19 09:21] LABS: MAGNESIUM 1.3 MG/DL (1.3-2.1)
[2020-07-19] MEDS ORDERED: NALTREXONE HCL50 MG PO (09:57)
[2020-07-19] MEDS ORDERED: MONTELUKAST SOD10 MG PO (09:57)
[2020-07-19] MEDS ORDERED: CYMBALTA30 MG PO (09:57)
[2020-07-19] MEDS ORDERED: FUROSEMIDE40 MG PO (09:57)
[2020-07-19] MEDS ORDERED: TRAZODONE HCL100 MG PO (09:57)
[2020-07-19 12:42] LABS: BASOPHILS % 0.1 % (0.0-1.0); EOSINOPHILS % 0.3 % (0.0-6.0); HEMATOCRIT 23.9 % (38.2-49.6); HEMOGLOBIN 7.7 g/dL (14.0-18.0); LYMPHOCYTES # (AUTO) 1.2 (1.0-3.2); LYMPHOCYTES % 16.7 % (18.0-39.1); MEAN CORPUSCULAR HEMOGLOBIN 27.6 pg (28-32); MEAN CORPUSCULAR HGB CONC 32.2 g/dL (31-35); MEAN CORPUSCULAR VOLUME 85.7 fL (81-99); MONOCYTES # (AUTO) 0.5 (0.2-0.8); MONOCYTES % 7.3 % (4.4-11.3); NEUTROPHILS # (AUTO) 5.1 (2.1-6.9); NEUTROPHILS % 74.9 % (38.7-80.0); RED BLOOD COUNT 2.79 x10e6/uL (4.3-5.7); RED CELL DISTRIBUTION WIDTH 16.9 % (11.7-14.4)
[2020-07-19 12:59] LABS: PLATELET COUNT 101 x10e3/uL (140-360)
[2020-07-19 13:30] VITALS: BP 132/77
[2020-07-19] MEDS: SODIUM CHLORIDE 0.9% 1000ML 1,000 ML IV SCH ×2 (13:30→21:20)
[2020-07-19 17:17] VITALS: BP 130/77
[2020-07-19 19:02] LABS: BASOPHILS % 0.4 % (0.0-1.0); EOSINOPHILS # (AUTO) 0.1 (0.0-0.4); EOSINOPHILS % 1.4 % (0.0-6.0); HEMATOCRIT 22.5 % (38.2-49.6); HEMOGLOBIN 7.3 g/dL (14.0-18.0); LYMPHOCYTES # (AUTO) 1.4 (1.0-3.2); LYMPHOCYTES % 28.5 % (18.0-39.1); MEAN CORPUSCULAR HEMOGLOBIN 28.2 pg (28-32); MEAN CORPUSCULAR HGB CONC 32.4 g/dL (31-35); MEAN CORPUSCULAR VOLUME 86.9 fL (81-99); MONOCYTES # (AUTO) 0.5 (0.2-0.8); MONOCYTES % 9.6 % (4.4-11.3); NEUTROPHILS % 59.3 % (38.7-80.0); PLATELET COUNT 110 x10e3/uL (140-360); RED BLOOD COUNT 2.59 x10e6/uL (4.3-5.7); RED CELL DISTRIBUTION WIDTH 17.1 % (11.7-14.4)
[2020-07-19 20:00] VITALS: BP 138/73
[2020-07-19 21:00] VITALS: BP 138/73
[2020-07-19] MEDS: PANTOPRAZOLE 40 MG 10ML VIAL IV SCH (21:20)
[2020-07-19] MEDS: ONDANSETRON HCL INJ 2MG/ML 2ML 2 MG/ML VIAL IV PRN (22:35)
[2020-07-19] MEDS: HYDROMORPHONE 2MG/ML 2 MG/ML ML IV PRN (22:35)
[2020-07-20] VITALS (13 sets, daily range): BP systolic 107–148; BP diastolic 60–95
[2020-07-20 01:03] LABS: FERRITIN 20.99 ng/mL (21.81-274.66)
[2020-07-20] MEDS: ONDANSETRON HCL INJ 2MG/ML 2ML 2 MG/ML VIAL IV PRN ×4 (02:40→18:36)
[2020-07-20] MEDS: HYDROMORPHONE 2MG/ML 2 MG/ML ML IV PRN ×2 (02:40→09:00)
[2020-07-20] MEDS: SODIUM CHLORIDE 0.9% 1000ML 1,000 ML IV SCH ×2 (05:20→16:00)
[2020-07-20] MEDS: OCTREOTIDE ACETATE 500 MCG in SODIUM CHLORIDE 0.9% 250ML 249 ML IV SCH ×2 (05:20→14:45)
[2020-07-20 06:37] LABS: BASOPHILS % 0.5 % (0.0-1.0); EOSINOPHILS # (AUTO) 0.1 (0.0-0.4); EOSINOPHILS % 1.9 % (0.0-6.0); LYMPHOCYTES # (AUTO) 1.2 (1.0-3.2); MEAN CORPUSCULAR HEMOGLOBIN 28.6 pg (28-32); MEAN CORPUSCULAR HGB CONC 33.5 g/dL (31-35); MEAN CORPUSCULAR VOLUME 85.5 fL (81-99); MONOCYTES # (AUTO) 0.4 (0.2-0.8); NEUTROPHILS % 53.8 % (38.7-80.0); PLATELET COUNT 103 x10e3/uL (140-360); RED BLOOD COUNT 2.27 x10e6/uL (4.3-5.7); RED CELL DISTRIBUTION WIDTH 17.2 % (11.7-14.4)
[2020-07-20 06:49] LABS: INR 1.26; PROTHROMBIN TIME 16.5 seconds (11.9-14.5)
[2020-07-20 06:56] LABS: HEMOGLOBIN 6.5 g/dL (14.0-18.0)
[2020-07-20 06:57] LABS: HEMATOCRIT 19.4 % (38.2-49.6)
[2020-07-20 07:08] LABS: ALANINE AMINOTRANSFERASE 10 IU/L (0-55); ALBUMIN/GLOBULIN RATIO 1.2 (0.8-2.0); ALKALINE PHOSPHATASE 50 IU/L (40-150); ANION GAP 10.6 mmol/L (8-16); BLOOD UREA NITROGEN 26 mg/dL (7-26); BUN/CREATININE RATIO 21 (6-25); CALCIUM 7.8 mg/dL (8.4-10.2); CARBON DIOXIDE 22 mmol/L (22-29); CHLORIDE 111 mmol/L (98-107); CREATININE, SERUM 1.22 mg/dL (0.72-1.25); EST GLOMERULAR FILTRATION RATE > 60 ML/MIN (60-); GLUCOSE 134 mg/dL (74-118); POTASSIUM 3.6 mmol/L (3.5-5.1); SODIUM 140 mmol/L (136-145)
[2020-07-20] MEDS ORDERED: SODIUM CHLORIDE 0.9% 250ML 250 ML IV ONE (07:15)
[2020-07-20] MEDS: PANTOPRAZOLE 40 MG 10ML VIAL IV SCH ×2 (09:14→19:23)
[2020-07-20] MEDS ORDERED: PROPOFOL IV EMULSION 10 MG/ML 20 ML VIAL ONE (12:32)
[2020-07-20] MEDS: HYDROMORPHONE 1MG/1ML INJ IV PRN ×4 (14:00→22:24)
[2020-07-20] MEDS ORDERED: PHYTONADIONE 10MG/ML 20 MG in SODIUM CHLORIDE 0.9% 50ML 50 ML IV ONE (16:45)
[2020-07-20] MEDS ORDERED: PROPRANOLOL HCL 10 MG TAB PO NR (17:00)
[2020-07-20] MEDS ORDERED: HYDROMORPHONE 1MG/1ML INJ ONE (17:40)
[2020-07-20 19:05] LABS: HEMATOCRIT 23.8 % (38.2-49.6); HEMOGLOBIN 7.8 g/dL (14.0-18.0)
[2020-07-20] MEDS ORDERED: FENTANYL CITRATE/PF 100MCG/2 ML INJ ONE (19:35)
[2020-07-20] MEDS ORDERED: MIDAZOLAM HCL 2 MG/2 ML VIAL ONE (19:35)
[2020-07-20] MEDS: MONTELUKAST SODIUM 10 MG TAB PO SCH (20:03)
[2020-07-20] MEDS: TRAZODONE HCL 50 MG TAB PO PRN (20:03)
[2020-07-20] MEDS: METOPROLOL TARTRATE 25 MG TAB PO SCH (20:03)
[2020-07-20] MEDS: DULOXETINE HCL 30 MG DELAYED RELEASE PO SCH (20:03)
[2020-07-20] MEDS ORDERED: DIPHENHYDRAMINE HCL INJ 50 MG/ML VIAL ONE (23:30)
[2020-07-20] MEDS ORDERED: DIPHENHYDRAMINE HCL INJ 50 MG/ML VIAL IV ONE (23:30)
[2020-07-21] VITALS (25 sets, daily range): BP systolic 106–133; BP diastolic 52–99
[2020-07-21 00:11] LABS: BASOPHILS % 0.3 % (0.0-1.0); EOSINOPHILS # (AUTO) 0.1 (0.0-0.4); EOSINOPHILS % 2.1 % (0.0-6.0); HEMATOCRIT 24.1 % (38.2-49.6); HEMOGLOBIN 7.9 g/dL (14.0-18.0); LYMPHOCYTES # (AUTO) 0.8 (1.0-3.2); LYMPHOCYTES % 24.3 % (18.0-39.1); MEAN CORPUSCULAR HEMOGLOBIN 28.7 pg (28-32); MEAN CORPUSCULAR HGB CONC 32.8 g/dL (31-35); MEAN CORPUSCULAR VOLUME 87.6 fL (81-99); MONOCYTES # (AUTO) 0.3 (0.2-0.8); MONOCYTES % 10.1 % (4.4-11.3); NEUTROPHILS # (AUTO) 2.1 (2.1-6.9); NEUTROPHILS % 62.6 % (38.7-80.0); PLATELET COUNT 101 x10e3/uL (140-360); RED BLOOD COUNT 2.75 x10e6/uL (4.3-5.7); RED CELL DISTRIBUTION WIDTH 16.2 % (11.7-14.4)
[2020-07-21] MEDS: OCTREOTIDE ACETATE 500 MCG in SODIUM CHLORIDE 0.9% 250ML 249 ML IV SCH ×3 (00:23→19:18)
[2020-07-21] MEDS: SODIUM CHLORIDE 0.9% 1000ML 1,000 ML IV SCH ×3 (00:24→19:45)
[2020-07-21] MEDS ORDERED: PHYTONADIONE 10 MG/ML AMP IV ONE (02:45)
[2020-07-21] MEDS ORDERED: PHYTONADIONE 10MG/ML 20 MG in SODIUM CHLORIDE 0.9% 50ML 50 ML IV ONE ×2 (03:00→21:30)
[2020-07-21] MEDS: HYDROMORPHONE 1MG/1ML INJ IV PRN ×5 (03:51→23:00)
[2020-07-21 06:36] LABS: BASOPHILS % 0.7 % (0.0-1.0); EOSINOPHILS # (AUTO) 0.1 (0.0-0.4); EOSINOPHILS % 2.7 % (0.0-6.0); HEMATOCRIT 23.5 % (38.2-49.6); HEMOGLOBIN 7.6 g/dL (14.0-18.0); LYMPHOCYTES # (AUTO) 0.8 (1.0-3.2); LYMPHOCYTES % 28.2 % (18.0-39.1); MEAN CORPUSCULAR HEMOGLOBIN 28.5 pg (28-32); MEAN CORPUSCULAR HGB CONC 32.3 g/dL (31-35); MONOCYTES # (AUTO) 0.4 (0.2-0.8); MONOCYTES % 11.7 % (4.4-11.3); NEUTROPHILS # (AUTO) 1.7 (2.1-6.9); PLATELET COUNT 92 x10e3/uL (140-360); RED BLOOD COUNT 2.67 x10e6/uL (4.3-5.7); RED CELL DISTRIBUTION WIDTH 16.2 % (11.7-14.4)
[2020-07-21 06:54] LABS: ALBUMIN/GLOBULIN RATIO 1.1 (0.8-2.0); ANION GAP 11.9 mmol/L (8-16); CALCIUM 8.2 mg/dL (8.4-10.2); CREATININE, SERUM 1.26 mg/dL (0.72-1.25); POTASSIUM 3.9 mmol/L (3.5-5.1)
[2020-07-21] MEDS: MAGNESIUM OXIDE 400 MG TAB PO SCH (07:57)
[2020-07-21] MEDS: SPIRONOLACTONE 25 MG TAB PO SCH (07:57)
[2020-07-21] MEDS: FUROSEMIDE 40 MG TAB PO SCH (07:57)
[2020-07-21] MEDS: CRESTOR 10MG PO SCH (07:57)
[2020-07-21] MEDS: PANTOPRAZOLE 40 MG 10ML VIAL IV SCH ×2 (07:57→19:45)
[2020-07-21] MEDS: ONDANSETRON HCL INJ 2MG/ML 2ML 2 MG/ML VIAL IV PRN ×2 (09:59→14:02)
[2020-07-21 11:48] LABS: HEMOGLOBIN 7.4 g/dL (14.0-18.0)
[2020-07-21] MEDS: METOPROLOL TARTRATE 25 MG TAB PO SCH (17:12)
[2020-07-21] MEDS: TRAZODONE HCL 50 MG TAB PO PRN (19:40)
[2020-07-21] MEDS: MONTELUKAST SODIUM 10 MG TAB PO SCH (19:45)
[2020-07-21] MEDS: DULOXETINE HCL 30 MG DELAYED RELEASE PO SCH (19:45)
[2020-07-22] VITALS (14 sets, daily range): BP systolic 87–124; BP diastolic 44–89
[2020-07-22] MEDS: HYDROMORPHONE 1MG/1ML INJ IV PRN ×5 (02:59→21:54)
[2020-07-22] MEDS ORDERED: PHYTONADIONE 10MG/ML 2 ML ONE (04:06)
[2020-07-22] MEDS ORDERED: SODIUM CHLORIDE 0.9% 100 ML ONE (04:08)
[2020-07-22] MEDS: OCTREOTIDE ACETATE 500 MCG in SODIUM CHLORIDE 0.9% 250ML 249 ML IV SCH ×2 (05:35→17:13)
[2020-07-22 05:36] LABS: BASOPHILS % 0.5 % (0.0-1.0); EOSINOPHILS # (AUTO) 0.1 (0.0-0.4); EOSINOPHILS % 3.1 % (0.0-6.0); HEMATOCRIT 21.4 % (38.2-49.6); HEMOGLOBIN 7.1 g/dL (14.0-18.0); LYMPHOCYTES # (AUTO) 1.1 (1.0-3.2); LYMPHOCYTES % 24.9 % (18.0-39.1); MEAN CORPUSCULAR HEMOGLOBIN 28.7 pg (28-32); MEAN CORPUSCULAR HGB CONC 33.2 g/dL (31-35); MEAN CORPUSCULAR VOLUME 86.6 fL (81-99); MONOCYTES # (AUTO) 0.5 (0.2-0.8); MONOCYTES % 11.4 % (4.4-11.3); NEUTROPHILS # (AUTO) 2.5 (2.1-6.9); NEUTROPHILS % 59.9 % (38.7-80.0); PLATELET COUNT 98 x10e3/uL (140-360); RED BLOOD COUNT 2.47 x10e6/uL (4.3-5.7); RED CELL DISTRIBUTION WIDTH 15.7 % (11.7-14.4)
[2020-07-22] MEDS ORDERED: PHYTONADIONE 10 MG/ML AMP SQ ONE (06:00)
[2020-07-22 06:02] LABS: ANION GAP 11.7 mmol/L (8-16); BLOOD UREA NITROGEN 14 mg/dL (7-26); BUN/CREATININE RATIO 12 (6-25); CARBON DIOXIDE 24 mmol/L (22-29); CHLORIDE 106 mmol/L (98-107); CREATININE, SERUM 1.16 mg/dL (0.72-1.25); EST GLOMERULAR FILTRATION RATE > 60 ML/MIN (60-); GLUCOSE 102 mg/dL (74-118); POTASSIUM 3.7 mmol/L (3.5-5.1); SODIUM 138 mmol/L (136-145)
[2020-07-22] MEDS: PANTOPRAZOLE 40 MG 10ML VIAL IV SCH ×2 (07:35→21:55)
[2020-07-22] MEDS: SPIRONOLACTONE 25 MG TAB PO SCH (07:35)
[2020-07-22] MEDS: CRESTOR 10MG PO SCH (07:40)
[2020-07-22] MEDS: MAGNESIUM OXIDE 400 MG TAB PO SCH (07:40)
[2020-07-22] MEDS: PROPRANOLOL HCL 10 MG TAB PO SCH ×2 (07:42→17:13)
[2020-07-22] MEDS: METOPROLOL TARTRATE 25 MG TAB PO SCH ×2 (07:42→17:13)
[2020-07-22] MEDS: FUROSEMIDE 40 MG TAB PO SCH (07:43)
[2020-07-22] MEDS: ONDANSETRON HCL INJ 2MG/ML 2ML 2 MG/ML VIAL IV PRN ×3 (09:55→17:30)
[2020-07-22] MEDS: DULOXETINE HCL 30 MG DELAYED RELEASE PO SCH (21:55)
[2020-07-22] MEDS: MONTELUKAST SODIUM 10 MG TAB PO SCH (21:55)
[2020-07-23] VITALS (9 sets, daily range): BP systolic 102–132; BP diastolic 59–87
[2020-07-23] MEDS: OCTREOTIDE ACETATE 500 MCG in SODIUM CHLORIDE 0.9% 250ML 249 ML IV SCH ×3 (01:52→23:00)
[2020-07-23] MEDS: HYDROMORPHONE 1MG/1ML INJ IV PRN ×3 (04:07→20:01)
[2020-07-23 04:47] LABS: BASOPHILS % 0.2 % (0.0-1.0); EOSINOPHILS # (AUTO) 0.1 (0.0-0.4); EOSINOPHILS % 2.6 % (0.0-6.0); HEMATOCRIT 21.7 % (38.2-49.6); HEMOGLOBIN 7.2 g/dL (14.0-18.0); LYMPHOCYTES # (AUTO) 1.1 (1.0-3.2); LYMPHOCYTES % 24.2 % (18.0-39.1); MEAN CORPUSCULAR HEMOGLOBIN 28.6 pg (28-32); MEAN CORPUSCULAR HGB CONC 33.2 g/dL (31-35); MEAN CORPUSCULAR VOLUME 86.1 fL (81-99); MONOCYTES # (AUTO) 0.6 (0.2-0.8); MONOCYTES % 12.7 % (4.4-11.3); NEUTROPHILS # (AUTO) 2.8 (2.1-6.9); NEUTROPHILS % 60.1 % (38.7-80.0); PLATELET COUNT 100 x10e3/uL (140-360); RED BLOOD COUNT 2.52 x10e6/uL (4.3-5.7); RED CELL DISTRIBUTION WIDTH 15.8 % (11.7-14.4)
[2020-07-23 04:58] LABS: INR 1.13; PROTHROMBIN TIME 15.2 seconds (11.9-14.5)
[2020-07-23 05:10] LABS: ALBUMIN 3.3 g/dL (3.5-5.0); ALBUMIN/GLOBULIN RATIO 1.1 (0.8-2.0); ANION GAP 14.8 mmol/L (8-16); CREATININE, SERUM 1.36 mg/dL (0.72-1.25); POTASSIUM 3.8 mmol/L (3.5-5.1)
[2020-07-23] MEDS ORDERED: PHYTONADIONE 10MG/ML 20 MG in SODIUM CHLORIDE 0.9% 50ML 50 ML IV ONE (07:30)
[2020-07-23] MEDS ORDERED: PHYTONADIONE 10 MG/ML AMP IV ONE (07:30)
[2020-07-23] MEDS: PROPRANOLOL HCL 10 MG TAB PO SCH ×2 (08:36→17:07)
[2020-07-23] MEDS: MAGNESIUM OXIDE 400 MG TAB PO SCH (08:36)
[2020-07-23] MEDS: SPIRONOLACTONE 25 MG TAB PO SCH (08:36)
[2020-07-23] MEDS: PANTOPRAZOLE 40 MG 10ML VIAL IV SCH ×2 (08:36→20:06)
[2020-07-23] MEDS: METOPROLOL TARTRATE 25 MG TAB PO SCH ×2 (08:36→17:07)
[2020-07-23] MEDS: CRESTOR 10MG PO SCH (08:36)
[2020-07-23] MEDS: ONDANSETRON HCL INJ 2MG/ML 2ML 2 MG/ML VIAL IV PRN ×2 (08:36→20:02)
[2020-07-23] MEDS: FUROSEMIDE 40 MG TAB PO SCH (08:36)
[2020-07-23] MEDS: CYANOCOBALAMIN INJ 1,000 MCG/ML VIAL IM SCH (08:36)
[2020-07-23] MEDS: DULOXETINE HCL 30 MG DELAYED RELEASE PO SCH (20:06)
[2020-07-23] MEDS: MONTELUKAST SODIUM 10 MG TAB PO SCH (20:06)
[2020-07-23] MEDS ORDERED: SODIUM CHLORIDE 0.9% 250ML 250 ML ONE (23:36)
[2020-07-24] MEDS ORDERED: HYDROCORTISONE ACETATE 25 MG/SUPP.RECT SUPP RC STA (02:56)
[2020-07-24 04:00] VITALS: BP 107/63
[2020-07-24 05:35] LABS: BASOPHILS % 0.4 % (0.0-1.0); EOSINOPHILS # (AUTO) 0.2 (0.0-0.4); EOSINOPHILS % 2.2 % (0.0-6.0); HEMOGLOBIN 8.2 g/dL (14.0-18.0); LYMPHOCYTES # (AUTO) 1.6 (1.0-3.2); LYMPHOCYTES % 21.1 % (18.0-39.1); MEAN CORPUSCULAR HEMOGLOBIN 28.5 pg (28-32); MEAN CORPUSCULAR HGB CONC 32.8 g/dL (31-35); MEAN CORPUSCULAR VOLUME 86.8 fL (81-99); MONOCYTES # (AUTO) 0.9 (0.2-0.8); MONOCYTES % 12.7 % (4.4-11.3); NEUTROPHILS # (AUTO) 4.7 (2.1-6.9); NEUTROPHILS % 62.9 % (38.7-80.0); PLATELET COUNT 163 x10e3/uL (140-360); RED BLOOD COUNT 2.88 x10e6/uL (4.3-5.7); RED CELL DISTRIBUTION WIDTH 15.9 % (11.7-14.4)
[2020-07-24 05:53] LABS: ANION GAP 15.9 mmol/L (8-16); CALCIUM 8.7 mg/dL (8.4-10.2); CREATININE, SERUM 1.45 mg/dL (0.72-1.25); POTASSIUM 3.9 mmol/L (3.5-5.1)
[2020-07-24 07:40] VITALS: BP 114/55
[2020-07-24] MEDS: METOPROLOL TARTRATE 25 MG TAB PO SCH (07:54)
[2020-07-24] MEDS: HYDROMORPHONE 1MG/1ML INJ IV PRN (08:35)
[2020-07-24] MEDS: SPIRONOLACTONE 25 MG TAB PO SCH (08:38)
[2020-07-24] MEDS: CRESTOR 10MG PO SCH (08:38)
[2020-07-24] MEDS: FUROSEMIDE 40 MG TAB PO SCH (08:39)
[2020-07-24] MEDS: MAGNESIUM OXIDE 400 MG TAB PO SCH (08:40)
[2020-07-24] MEDS: PANTOPRAZOLE 40 MG 10ML VIAL IV SCH (08:42)
[2020-07-24] MEDS: CYANOCOBALAMIN INJ 1,000 MCG/ML VIAL IM SCH (08:46)
[2020-07-24] MEDS: OCTREOTIDE ACETATE 500 MCG in SODIUM CHLORIDE 0.9% 250ML 249 ML IV SCH (08:47)
[2020-07-24 08:56] VITALS: BP 114/55
[2020-07-24] MEDS ORDERED: PROPRANOLOL HCL 10 MG TAB PO SCH (09:00)
[2020-07-24] MEDS ORDERED: HYDROCORTISONE ACETATE 25 MG/SUPP.RECT SUPP RC SCH (09:00)
[2020-07-24 11:45] VITALS: BP 114/60
[2020-07-24] MEDS ORDERED: DOCUSATE SODIUM LIQD 100 MG/10 ML UDC NG SCH (21:00)
== END 2020-07-24 14:01 | disposition home or self-care (01) | DRG 369 ==
LOC: ER 07:49 → ERHOLD 09:54 → MED/SURG3 12:55 → ICU 07-20 16:55 → IMCU 07-22 12:21
PROVIDERS: ADMIT Family Medicine; ATTEND Family Medicine
PROC: 30233N1 Transfusion of Nonautologous Red Blood Cells into Peripheral Vein, Percutaneous Approach (ICD-10-PCS; 2020-07-20)
PROC: 06L38CZ Occlusion of Esophageal Vein with Extraluminal Device, Via Natural or Artificial Opening Endoscopic (ICD-10-PCS; principal; 2020-07-20 16:00)
DX: I85.01 Esophageal varices with bleeding (principal); K76.6 Portal hypertension; Z68.41 Body mass index [BMI] 40.0-44.9, adult; F10.27 Alcohol dependence with alcohol-induced persisting dementia; E66.01 Morbid (severe) obesity due to excess calories; K70.30 Alcoholic cirrhosis of liver without ascites; I25.10 Atherosclerotic heart disease of native coronary artery without angina pectoris; E78.5 Hyperlipidemia, unspecified; D64.9 Anemia, unspecified; E66.9 Obesity, unspecified; Z88.5 Allergy status to narcotic agent; Z88.0 Allergy status to penicillin; Z95.5 Presence of coronary angioplasty implant and graft; Z82.49 Family history of ischemic heart disease and other diseases of the circulatory system; Z90.49 Acquired absence of other specified parts of digestive tract; I10 Essential (primary) hypertension; D69.6 Thrombocytopenia, unspecified; K31.89 Other diseases of stomach and duodenum; K64.9 Unspecified hemorrhoids
CPT/HCPCS: 36415; 43255; 71045; 80048; 80053; 80162; 82140; 82270; 82550; 82553; 82607; 82728; 82746; 83540; 83735; 83880; 84466; 84484; 85014; 85018; 85025; 85045; 85610; 85730; 86850; 86900; 86920; 93005; 96376; 99284; J1170; J1200; J2250; J2353; J2354; J2405; J3010; J3420; J3430; J7030; J7050; P9016; U0002

== ENCOUNTER → 2020-08-02 | Outpatient (CLI) | payer OTHER ==
[~2020-08-02] MED LIST changes: +CYMBALTA30 MG PO; +FUROSEMIDE40 MG PO; +MAGNESIUM OXID400 MG PO; +MEN'S DAILY FO1 EACH PO; +MONTELUKAST SOD10 MG PO; +NALTREXONE HCL50 MG PO; +PROPRANOLOL HCL40 MG PO; +SPIRONOLACTONE25 MG PO; +TRAZODONE HCL100 MG PO
== END ==
LOC: US 11:00
PROVIDERS: ATTEND Internal Medicine Gastroenterology
DX: K74.60 Unspecified cirrhosis of liver (principal)
CPT/HCPCS: 76705

== ENCOUNTER 2020-08-06 07:01 | Observation (INO) | payer OTHER ==
[~2020-08-06] VITALS: Ht 177.8 cm; Wt 117.9 kg
[2020-08-06] MEDS ORDERED: FENTANYL CITRATE/PF 100MCG/2 ML INJ ONE ×2 (10:30→12:17)
[2020-08-06] MEDS ORDERED: HYDROMORPHONE 1MG/1ML INJ ONE (12:09)
[2020-08-06] MEDS ORDERED: KETAMINE HCL INJ 50 MG/ML 10 ML VIAL ONE (12:17)
[2020-08-06] MEDS ORDERED: MIDAZOLAM HCL 2 MG/2 ML VIAL ONE (12:17)
[2020-08-06] MEDS ORDERED: MORPHINE SULFATE INJ 2 MG/ML SYR ONE (14:39)
[2020-08-06 15:38] VITALS: BP 121/69
[2020-08-06] MEDS ORDERED: SODIUM CHLORIDE 0.9% 250ML 250 ML ONE (17:02)
[2020-08-06 18:15] LABS: HEMATOCRIT 29.4 % (38.2-49.6); HEMOGLOBIN 9.1 g/dL (14.0-18.0)
[2020-08-06] MEDS ORDERED: HYDROMORPHONE 1MG/1ML INJ IV NR (18:41)
[2020-08-06] MEDS ORDERED: PROPOFOL IV EMULSION 10 MG/ML 20 ML VIAL ONE (19:22)
[2020-08-06 19:48] VITALS: BP 156/74
== END 2020-08-06 19:52 | disposition home or self-care (01) ==
LOC: OR 07:01 → PACU V 11:46 → MED/SURG 15:25
PROVIDERS: ADMIT Internal Medicine Gastroenterology; ATTEND Internal Medicine Gastroenterology
DX: K70.31 Alcoholic cirrhosis of liver with ascites (principal); Z12.11 Encounter for screening for malignant neoplasm of colon; I10 Essential (primary) hypertension; E78.5 Hyperlipidemia, unspecified; I25.10 Atherosclerotic heart disease of native coronary artery without angina pectoris; Z95.5 Presence of coronary angioplasty implant and graft; D50.9 Iron deficiency anemia, unspecified; K57.90 Diverticulosis of intestine, part unspecified, without perforation or abscess without bleeding; K64.9 Unspecified hemorrhoids; K44.9 Diaphragmatic hernia without obstruction or gangrene; K76.6 Portal hypertension; I85.10 Secondary esophageal varices without bleeding; K31.7 Polyp of stomach and duodenum; F10.21 Alcohol dependence, in remission; F03.90 Unspecified dementia, unspecified severity, without behavioral disturbance, psychotic disturbance, mood disturbance, and anxiety; K29.71 Gastritis, unspecified, with bleeding; I85.11 Secondary esophageal varices with bleeding
CPT/HCPCS: 36415; 43244; 43259; 45378; 85014; 85018; 86850; 86900; 86920; 93005; G0378; J1170; J2250; J2270; J2704; J3010; J7050; 43239; 43255

== ENCOUNTER 2020-11-26 02:30 | Inpatient (IN) | payer OTHER ==
[~2020-11-26] VITALS: Ht 177.8 cm; Wt 127.9 kg
[2020-11-26] VITALS (10 sets, daily range): BP systolic 99–126; BP diastolic 47–74
[2020-11-26] MEDS: CEFTRIAXONE 1 GM in SODIUM CHLORIDE 0.9% 50ML 50 ML IV SCH ×2 (02:45→22:05)
[2020-11-26] MEDS ORDERED: OCTREOTIDE ACETATE 0.05 MG/ML AMP IV ONE (02:45)
[2020-11-26] MEDS: Pantoprazole IV 40 MG in SODIUM CHLORIDE 0.9% 50ML 50 ML IV SCH ×5 (02:50→22:05)
[2020-11-26] MEDS ORDERED: SODIUM CHLORIDE 0.9% 250ML 500 ML ONE (02:59)
[2020-11-26 03:01] LABS: BASOPHILS % 0.1 % (0.0-1.0); EOSINOPHILS # (AUTO) 0.1 (0.0-0.4); EOSINOPHILS % 0.2 % (0.0-6.0); HEMATOCRIT 21.5 % (38.2-49.6); LYMPHOCYTES # (AUTO) 3.1 (1.0-3.2); LYMPHOCYTES % 13.6 % (18.0-39.1); MEAN CORPUSCULAR HEMOGLOBIN 19.9 pg (28-32); MEAN CORPUSCULAR HGB CONC 28.4 g/dL (31-35); MEAN CORPUSCULAR VOLUME 70.3 fL (81-99); MONOCYTES # (AUTO) 2.4 (0.2-0.8); MONOCYTES % 10.6 % (4.4-11.3); NEUTROPHILS # (AUTO) 16.3 (2.1-6.9); NEUTROPHILS % 72.8 % (38.7-80.0); PLATELET COUNT 298 x10e3/uL (140-360); RED BLOOD COUNT 3.06 x10e6/uL (4.3-5.7); RED CELL DISTRIBUTION WIDTH 18.6 % (11.7-14.4)
[2020-11-26 03:05] LABS: HEMOGLOBIN 6.1 g/dL (14.0-18.0)
[2020-11-26 03:09] LABS: INR 1.23
[2020-11-26 03:10] LABS: PARTIAL THROMBOPLASTIN TIME 28.5 seconds (23.8-35.5)
[2020-11-26 03:17] LABS: ANION GAP 18.5 mmol/L (8-16); CALCIUM 8.3 mg/dL (8.4-10.2); CREATININE, SERUM 1.04 mg/dL (0.72-1.25); POTASSIUM 5.5 mmol/L (3.5-5.1)
[2020-11-26] MEDS ORDERED: SODIUM CHLORIDE 0.9% 1000ML 1,000 ML IV SCH (03:45)
[2020-11-26] MEDS: OCTREOTIDE ACETATE 500 MCG in SODIUM CHLORIDE 0.9% 250ML 250 ML IV SCH ×3 (04:24→22:05)
[2020-11-26 06:54] LABS: BASOPHILS % 0.1 % (0.0-1.0); EOSINOPHILS % 0.2 % (0.0-6.0); HEMATOCRIT 26.7 % (38.2-49.6); HEMOGLOBIN 8.1 g/dL (14.0-18.0); LYMPHOCYTES # (AUTO) 2.3 (1.0-3.2); LYMPHOCYTES % 13.3 % (18.0-39.1); MEAN CORPUSCULAR HEMOGLOBIN 22.4 pg (28-32); MEAN CORPUSCULAR HGB CONC 30.3 g/dL (31-35); MEAN CORPUSCULAR VOLUME 73.8 fL (81-99); MONOCYTES # (AUTO) 1.9 (0.2-0.8); MONOCYTES % 10.9 % (4.4-11.3); NEUTROPHILS # (AUTO) 12.4 (2.1-6.9); NEUTROPHILS % 73.1 % (38.7-80.0); PLATELET COUNT 176 x10e3/uL (140-360); RED BLOOD COUNT 3.62 x10e6/uL (4.3-5.7); RED CELL DISTRIBUTION WIDTH 21.5 % (11.7-14.4)
[2020-11-26 07:12] LABS: ANION GAP 16.4 mmol/L (8-16); CALCIUM 8.3 mg/dL (8.4-10.2); CREATININE, SERUM 1.16 mg/dL (0.72-1.25); POTASSIUM 5.4 mmol/L (3.5-5.1)
[2020-11-26] MEDS ORDERED: PHYTONADIONE 10MG/ML 20 MG in SODIUM CHLORIDE 0.9% 50ML 50 ML IV ONE (10:30)
[2020-11-26] MEDS: PROPRANOLOL HCL 40 MG TAB PO SCH ×2 (10:41→16:47)
[2020-11-26] MEDS: SPIRONOLACTONE 25 MG TAB PO SCH (10:41)
[2020-11-26 12:35] LABS: HEMATOCRIT 23.8 % (38.2-49.6); HEMOGLOBIN 7.4 g/dL (14.0-18.0)
[2020-11-26] MEDS: METOCLOPRAMIDE HCL 10 MG/2ML VIAL IV SCH (17:04)
[2020-11-26 18:01] LABS: HEMATOCRIT 24.7 % (38.2-49.6); HEMOGLOBIN 7.4 g/dL (14.0-18.0)
[2020-11-26 23:04] LABS: BASOPHILS % 0.2 % (0.0-1.0); EOSINOPHILS # (AUTO) 0.1 (0.0-0.4); EOSINOPHILS % 0.4 % (0.0-6.0); HEMATOCRIT 22.2 % (38.2-49.6); LYMPHOCYTES # (AUTO) 2.4 (1.0-3.2); MEAN CORPUSCULAR HEMOGLOBIN 22.3 pg (28-32); MEAN CORPUSCULAR HGB CONC 30.2 g/dL (31-35); MEAN CORPUSCULAR VOLUME 73.8 fL (81-99); MONOCYTES # (AUTO) 1.2 (0.2-0.8); MONOCYTES % 9.6 % (4.4-11.3); NEUTROPHILS # (AUTO) 8.2 (2.1-6.9); NEUTROPHILS % 68.2 % (38.7-80.0); PLATELET COUNT 141 x10e3/uL (140-360); RED BLOOD COUNT 3.01 x10e6/uL (4.3-5.7); RED CELL DISTRIBUTION WIDTH 21.2 % (11.7-14.4)
[2020-11-26 23:06] LABS: HEMOGLOBIN 6.7 g/dL (14.0-18.0)
[2020-11-26] MEDS ORDERED: SODIUM CHLORIDE 0.9% 250ML 250 ML IV ONE (23:15)
[2020-11-27] VITALS (18 sets, daily range): BP systolic 105–158; BP diastolic 47–92
[2020-11-27] MEDS: Pantoprazole IV 40 MG in SODIUM CHLORIDE 0.9% 50ML 50 ML IV SCH ×5 (00:14→20:53)
[2020-11-27] MEDS: METOCLOPRAMIDE HCL 10 MG/2ML VIAL IV SCH ×5 (00:14→23:31)
[2020-11-27] MEDS ORDERED: PHYTONADIONE 10MG/ML 20 MG in SODIUM CHLORIDE 0.9% 50ML 50 ML IV ONE (05:00)
[2020-11-27 06:40] LABS: BASOPHILS % 0.2 % (0.0-1.0); EOSINOPHILS # (AUTO) 0.1 (0.0-0.4); EOSINOPHILS % 0.6 % (0.0-6.0); HEMOGLOBIN 7.3 g/dL (14.0-18.0); LYMPHOCYTES # (AUTO) 1.6 (1.0-3.2); LYMPHOCYTES % 15.6 % (18.0-39.1); MEAN CORPUSCULAR HEMOGLOBIN 22.9 pg (28-32); MEAN CORPUSCULAR HGB CONC 31.7 g/dL (31-35); MEAN CORPUSCULAR VOLUME 72.1 fL (81-99); MONOCYTES % 10.2 % (4.4-11.3); NEUTROPHILS # (AUTO) 7.2 (2.1-6.9); PLATELET COUNT 136 x10e3/uL (140-360); RED BLOOD COUNT 3.19 x10e6/uL (4.3-5.7); RED CELL DISTRIBUTION WIDTH 20.7 % (11.7-14.4)
[2020-11-27 07:02] LABS: ANION GAP 11.4 mmol/L (8-16); CALCIUM 7.9 mg/dL (8.4-10.2); CREATININE, SERUM 1.18 mg/dL (0.72-1.25); POTASSIUM 4.4 mmol/L (3.5-5.1)
[2020-11-27] MEDS: PROPRANOLOL HCL 40 MG TAB PO SCH ×2 (09:00→17:56)
[2020-11-27] MEDS: SPIRONOLACTONE 25 MG TAB PO SCH (09:00)
[2020-11-27] MEDS: OCTREOTIDE ACETATE 500 MCG in SODIUM CHLORIDE 0.9% 250ML 250 ML IV SCH ×2 (12:58→20:53)
[2020-11-27] MEDS ORDERED: FENTANYL CITRATE/PF 100MCG/2 ML INJ ONE (16:21)
[2020-11-27] MEDS: CEFTRIAXONE 1 GM in SODIUM CHLORIDE 0.9% 50ML 50 ML IV SCH (20:53)
[2020-11-28] VITALS (9 sets, daily range): BP systolic 137–159; BP diastolic 70–82
[2020-11-28] MEDS: Pantoprazole IV 40 MG in SODIUM CHLORIDE 0.9% 50ML 50 ML IV SCH ×5 (00:30→20:51)
[2020-11-28] MEDS: OCTREOTIDE ACETATE 500 MCG in SODIUM CHLORIDE 0.9% 250ML 250 ML IV SCH ×2 (04:30→14:45)
[2020-11-28 06:00] LABS: BASOPHILS % 0.2 % (0.0-1.0); EOSINOPHILS # (AUTO) 0.1 (0.0-0.4); EOSINOPHILS % 0.8 % (0.0-6.0); HEMATOCRIT 24.4 % (38.2-49.6); HEMOGLOBIN 7.5 g/dL (14.0-18.0); LYMPHOCYTES # (AUTO) 1.4 (1.0-3.2); LYMPHOCYTES % 21.6 % (18.0-39.1); MEAN CORPUSCULAR HEMOGLOBIN 22.9 pg (28-32); MEAN CORPUSCULAR HGB CONC 30.7 g/dL (31-35); MEAN CORPUSCULAR VOLUME 74.4 fL (81-99); MONOCYTES # (AUTO) 0.8 (0.2-0.8); MONOCYTES % 11.5 % (4.4-11.3); NEUTROPHILS # (AUTO) 4.2 (2.1-6.9); NEUTROPHILS % 64.7 % (38.7-80.0); PLATELET COUNT 122 x10e3/uL (140-360); RED BLOOD COUNT 3.28 x10e6/uL (4.3-5.7); RED CELL DISTRIBUTION WIDTH 21.3 % (11.7-14.4)
[2020-11-28 06:22] LABS: ALBUMIN/GLOBULIN RATIO 1.1 (0.8-2.0); ANION GAP 15.1 mmol/L (8-16); CALCIUM 8.3 mg/dL (8.4-10.2); CREATININE, SERUM 1.28 mg/dL (0.72-1.25); POTASSIUM 4.1 mmol/L (3.5-5.1)
[2020-11-28] MEDS: METOCLOPRAMIDE HCL 10 MG/2ML VIAL IV SCH ×4 (06:24→23:11)
[2020-11-28] MEDS: SPIRONOLACTONE 25 MG TAB PO SCH (09:00)
[2020-11-28] MEDS: PROPRANOLOL HCL 40 MG TAB PO SCH ×2 (09:00→16:57)
[2020-11-28] MEDS: CEFTRIAXONE 1 GM in SODIUM CHLORIDE 0.9% 50ML 50 ML IV SCH (20:41)
[2020-11-29 00:25] VITALS: BP 146/72
[2020-11-29] MEDS: OCTREOTIDE ACETATE 500 MCG in SODIUM CHLORIDE 0.9% 250ML 250 ML IV SCH (02:17)
[2020-11-29] MEDS: Pantoprazole IV 40 MG in SODIUM CHLORIDE 0.9% 50ML 50 ML IV SCH ×2 (02:36→10:15)
[2020-11-29 04:40] VITALS: BP 122/53
[2020-11-29 05:02] LABS: BASOPHILS % 0.2 % (0.0-1.0); EOSINOPHILS # (AUTO) 0.1 (0.0-0.4); EOSINOPHILS % 0.8 % (0.0-6.0); HEMATOCRIT 24.1 % (38.2-49.6); HEMOGLOBIN 7.2 g/dL (14.0-18.0); LYMPHOCYTES # (AUTO) 1.4 (1.0-3.2); LYMPHOCYTES % 21.5 % (18.0-39.1); MEAN CORPUSCULAR HEMOGLOBIN 22.6 pg (28-32); MEAN CORPUSCULAR HGB CONC 29.9 g/dL (31-35); MEAN CORPUSCULAR VOLUME 75.5 fL (81-99); MONOCYTES # (AUTO) 0.7 (0.2-0.8); MONOCYTES % 10.3 % (4.4-11.3); NEUTROPHILS # (AUTO) 4.4 (2.1-6.9); NEUTROPHILS % 66.3 % (38.7-80.0); PLATELET COUNT 121 x10e3/uL (140-360); RED BLOOD COUNT 3.19 x10e6/uL (4.3-5.7); RED CELL DISTRIBUTION WIDTH 22.1 % (11.7-14.4)
[2020-11-29 05:26] LABS: CALCIUM 8.4 mg/dL (8.4-10.2); CREATININE, SERUM 1.23 mg/dL (0.72-1.25)
[2020-11-29] MEDS: METOCLOPRAMIDE HCL 10 MG/2ML VIAL IV SCH (05:33)
[2020-11-29 08:00] VITALS: BP 122/53
[2020-11-29 08:02] VITALS: BP 122/71
[2020-11-29] MEDS: PROPRANOLOL HCL 40 MG TAB PO SCH (09:00)
[2020-11-29] MEDS: SPIRONOLACTONE 25 MG TAB PO SCH (09:00)
[2020-11-29] MEDS ORDERED: TRAMADOL HCL 50 MG TAB PO PRN (09:30)
[2020-11-29 12:01] VITALS: BP 126/69
== END 2020-11-29 13:50 | disposition home or self-care (01) | DRG 432 ==
LOC: ER 02:37 → ERHOLD 03:33 → ICU 05:31 → MED/SURG3 11-27 18:50
PROVIDERS: ADMIT Family Medicine; ATTEND Family Medicine
PROC: 30233N1 Transfusion of Nonautologous Red Blood Cells into Peripheral Vein, Percutaneous Approach (ICD-10-PCS; 2020-11-26)
PROC: 06L38CZ Occlusion of Esophageal Vein with Extraluminal Device, Via Natural or Artificial Opening Endoscopic (ICD-10-PCS; principal; 2020-11-27 15:30)
DX: K70.30 Alcoholic cirrhosis of liver without ascites (principal); I85.11 Secondary esophageal varices with bleeding; K76.6 Portal hypertension; D62 Acute posthemorrhagic anemia; N17.9 Acute kidney failure, unspecified; Z68.41 Body mass index [BMI] 40.0-44.9, adult; I10 Essential (primary) hypertension; I25.10 Atherosclerotic heart disease of native coronary artery without angina pectoris; F10.21 Alcohol dependence, in remission; K21.9 Gastro-esophageal reflux disease without esophagitis; K31.89 Other diseases of stomach and duodenum; K44.9 Diaphragmatic hernia without obstruction or gangrene; E66.9 Obesity, unspecified; Z95.5 Presence of coronary angioplasty implant and graft; Z88.5 Allergy status to narcotic agent; Z88.0 Allergy status to penicillin; Z20.822 Contact with and (suspected) exposure to COVID-19
CPT/HCPCS: 36415; 43255; 71045; 76700; 80048; 80053; 83605; 84484; 85014; 85018; 85025; 85610; 85730; 86850; 86900; 86920; 87040; 87071; 87205; 93005; 99284; J0696; J2353; J2354; J2765; J3010; J3430; J7030; J7050; P9016; U0002

== ENCOUNTER 2020-12-05 02:02 | Inpatient (IN) | payer OTHER ==
[2020-12-05] VITALS (24 sets, daily range): BP systolic 71–109; BP diastolic 28–67
[~2020-12-05] VITALS: Ht 177.8 cm; Wt 123.4 kg
[2020-12-05] MEDS ORDERED: OCTREOTIDE ACETATE 0.05 MG/ML AMP IV SCH (02:15)
[2020-12-05] MEDS ORDERED: OCTREOTIDE ACETATE 500 MCG in SODIUM CHLORIDE 0.9% 250ML 249 ML IV SCH (02:15)
[2020-12-05] MEDS ORDERED: LACTATED RINGER'S 1,000 ML INJ ONE ×2 (02:15→18:45)
[2020-12-05 02:21] LABS: BASOPHILS % 0.1 % (0.0-1.0); EOSINOPHILS # (AUTO) 0.1 (0.0-0.4); EOSINOPHILS % 0.7 % (0.0-6.0); LYMPHOCYTES # (AUTO) 0.9 (1.0-3.2); LYMPHOCYTES % 9.6 % (18.0-39.1); MEAN CORPUSCULAR HGB CONC 28.1 g/dL (31-35); MEAN CORPUSCULAR VOLUME 78.4 fL (81-99); MONOCYTES # (AUTO) 0.1 (0.2-0.8); NEUTROPHILS # (AUTO) 7.8 (2.1-6.9); NEUTROPHILS % 87.9 % (38.7-80.0); PLATELET COUNT 181 x10e3/uL (140-360); RED CELL DISTRIBUTION WIDTH 21.7 % (11.7-14.4)
[2020-12-05 02:23] LABS: HEMATOCRIT 19.6 % (38.2-49.6); HEMOGLOBIN 5.5 g/dL (14.0-18.0)
[2020-12-05 02:27] LABS: INR 1.2; PROTHROMBIN TIME 16.2 seconds (11.9-14.5)
[2020-12-05] MEDS ORDERED: SODIUM CHLORIDE 0.9% 250ML 250 ML IV ONE ×4 (02:30→23:00)
[2020-12-05] MEDS: CEFTRIAXONE 1 GM in SODIUM CHLORIDE 0.9% 50ML 50 ML IV SCH (02:32)
[2020-12-05 02:36] LABS: ALBUMIN 2.7 g/dL (3.5-5.0); ANION GAP 21.6 mmol/L (8-16); CALCIUM 7.8 mg/dL (8.4-10.2); CREATININE, SERUM 1.08 mg/dL (0.72-1.25); POTASSIUM 4.6 mmol/L (3.5-5.1)
[2020-12-05] MEDS ORDERED: SODIUM CHLORIDE 0.9% 1000ML 1,000 ML IV SCH (02:45)
[2020-12-05] MEDS ORDERED: ONDANSETRON HCL INJ 2MG/ML 2ML 2 MG/ML VIAL IV PRN (02:45)
[2020-12-05] MEDS: Pantoprazole IV 40 MG in SODIUM CHLORIDE 0.9% 50ML 50 ML IV SCH ×5 (07:15→21:39)
[2020-12-05] MEDS ORDERED: PHYTONADIONE 10 MG/ML AMP IV ONE (07:45)
[2020-12-05] MEDS ORDERED: PHYTONADIONE 10MG/ML 20 MG in SODIUM CHLORIDE 0.9% 50ML 50 ML IV ONE ×2 (08:00→12:00)
[2020-12-05] MEDS ORDERED: SODIUM CHLORIDE 0.9% 250ML 250 ML ONE ×2 (09:19→20:00)
[2020-12-05] MEDS ORDERED: VASOPRESSIN 60 UNIT in DEXTROSE 5% 50ML 57 ML IV PRN (10:30)
[2020-12-05] MEDS: OCTREOTIDE ACETATE 500 MCG in SODIUM CHLORIDE 0.9% 250ML 249 ML IV SCH (12:47)
[2020-12-05 15:02] LABS: HEMOGLOBIN 7.3 g/dL (14.0-18.0)
[2020-12-05 15:42] LABS: ALBUMIN 2.2 g/dL (3.5-5.0); CALCIUM 7.3 mg/dL (8.4-10.2); CREATININE, SERUM 2.02 mg/dL (0.72-1.25)
[2020-12-05] MEDS ORDERED: PROPRANOLOL HCL 10 MG TAB PO SCH (17:00)
[2020-12-05] MEDS ORDERED: FUROSEMIDE INJ 10 MG/ML 2 ML VIAL IV ONE (18:55)
[2020-12-05] MEDS ORDERED: NOREPINEPHRINE 8 MG/D5W 250 ML 250 ML IV PRN (20:45)
[2020-12-05] MEDS ORDERED: LACTATED RINGER'S 1,000 ML ONE (21:51)
[2020-12-05] MEDS ORDERED: HEPARIN SOD (PORCINE) 1000 UNIT/ML SDV ONE (22:15)
[2020-12-05] MEDS ORDERED: NON-FORMULARY MEDICATION IV ONE ×2 (23:00)
[2020-12-05] MEDS ORDERED: TRANEXAMIC ACID 1,000 MG/10 ML ML ONE (23:19)
[2020-12-05] MEDS ORDERED: TRANEXAMIC ACID 1,000 MG in SODIUM CHLORIDE 0.9% 100 ML IV ONE (23:30)
[2020-12-05] MEDS ORDERED: TRANEXAMIC ACID IV ONE (23:30)
[2020-12-05] MEDS ORDERED: SODIUM CHLORIDE 0.9% IV ONE (23:30)
[2020-12-06] VITALS (25 sets, daily range): BP systolic 82–198; BP diastolic 14–104
[2020-12-06] MEDS ORDERED: METRONIDAZOLE 500MG/NS 100ML 100 ML IV STA (00:28)
[2020-12-06] MEDS: OCTREOTIDE ACETATE 500 MCG in SODIUM CHLORIDE 0.9% 250ML 249 ML IV SCH ×3 (00:45→19:55)
[2020-12-06] MEDS ORDERED: RIFAXIMIN 550 MG TABLET PO STA (00:48)
[2020-12-06] MEDS ORDERED: SODIUM CHLORIDE 0.9% 250ML 250 ML ONE ×2 (00:49→11:03)
[2020-12-06 01:17] LABS: BASOPHILS % 0.2 % (0.0-1.0); EOSINOPHILS # (AUTO) 0.1 (0.0-0.4); EOSINOPHILS % 0.6 % (0.0-6.0); LYMPHOCYTES # (AUTO) 0.6 (1.0-3.2); LYMPHOCYTES % 3.1 % (18.0-39.1); MEAN CORPUSCULAR HEMOGLOBIN 26.9 pg (28-32); MEAN CORPUSCULAR HGB CONC 32.4 g/dL (31-35); MEAN CORPUSCULAR VOLUME 83.3 fL (81-99); MONOCYTES # (AUTO) 0.9 (0.2-0.8); MONOCYTES % 4.7 % (4.4-11.3); NEUTROPHILS # (AUTO) 16.9 (2.1-6.9); NEUTROPHILS % 86.6 % (38.7-80.0); PLATELET COUNT 82 x10e3/uL (140-360); RED BLOOD COUNT 2.45 x10e6/uL (4.3-5.7); RED CELL DISTRIBUTION WIDTH 19.5 % (11.7-14.4)
[2020-12-06 01:20] LABS: HEMATOCRIT 20.4 % (38.2-49.6); HEMOGLOBIN 6.6 g/dL (14.0-18.0)
[2020-12-06 01:27] LABS: INR 1.55; PROTHROMBIN TIME 19.8 seconds (11.9-14.5)
[2020-12-06 01:28] LABS: PARTIAL THROMBOPLASTIN TIME 40.5 seconds (23.8-35.5)
[2020-12-06] MEDS ORDERED: SODIUM CHLORIDE 0.9% 250ML 250 ML IV ONE ×3 (01:30→19:50)
[2020-12-06] MEDS: Pantoprazole IV 40 MG in SODIUM CHLORIDE 0.9% 50ML 50 ML IV SCH ×4 (03:14→18:37)
[2020-12-06] MEDS: METRONIDAZOLE 500MG/NS 100ML 100 ML IV SCH ×3 (06:49→18:37)
[2020-12-06 07:27] LABS: BASOPHILS % 0.2 % (0.0-1.0); EOSINOPHILS % 0.1 % (0.0-6.0); LYMPHOCYTES # (AUTO) 0.6 (1.0-3.2); LYMPHOCYTES % 3.4 % (18.0-39.1); MEAN CORPUSCULAR HEMOGLOBIN 28.1 pg (28-32); MEAN CORPUSCULAR HGB CONC 33.3 g/dL (31-35); MEAN CORPUSCULAR VOLUME 84.2 fL (81-99); MONOCYTES # (AUTO) 0.9 (0.2-0.8); MONOCYTES % 5.4 % (4.4-11.3); NEUTROPHILS # (AUTO) 14.6 (2.1-6.9); NEUTROPHILS % 88.6 % (38.7-80.0); PLATELET COUNT 74 x10e3/uL (140-360); RED BLOOD COUNT 2.85 x10e6/uL (4.3-5.7); RED CELL DISTRIBUTION WIDTH 18.6 % (11.7-14.4)
[2020-12-06 07:45] LABS: ANION GAP 16.1 mmol/L (8-16); CALCIUM 7.3 mg/dL (8.4-10.2); CREATININE, SERUM 1.75 mg/dL (0.72-1.25); POTASSIUM 4.1 mmol/L (3.5-5.1)
[2020-12-06 08:07] LABS: INR 1.63; PROTHROMBIN TIME 20.6 seconds (11.9-14.5)
[2020-12-06 08:08] LABS: PARTIAL THROMBOPLASTIN TIME 43.4 seconds (23.8-35.5)
[2020-12-06 08:25] LABS: PLATELET ESTIMATE MODERATELY DECREASED; PLATELET MORPHOLOGY COMMENT FEW LARGE; RBC MORPHOLOGY COMMENT NORMAL
[2020-12-06] MEDS ORDERED: PHYTONADIONE 10 MG/ML AMP IV NR (08:45)
[2020-12-06] MEDS: CEFTRIAXONE 1 GM in SODIUM CHLORIDE 0.9% 50ML 50 ML IV SCH (08:56)
[2020-12-06] MEDS: PROPRANOLOL HCL 10 MG TAB PO SCH ×3 (09:00→17:00)
[2020-12-06] MEDS ORDERED: SPIRONOLACTONE 25 MG TAB PO SCH (09:00)
[2020-12-06 09:33] LABS: ALBUMIN 2.2 g/dL (3.5-5.0); BILIRUBIN,DIRECT 0.7 mg/dL (0.0-0.5)
[2020-12-06] MEDS ORDERED: SODIUM CHLORIDE 0.9% 100 ML ONE ×2 (10:30→18:02)
[2020-12-06] MEDS ORDERED: ACETAMINOPHEN 325 MG TAB PO PRN (12:00)
[2020-12-06] MEDS ORDERED: PHENYLEPHRINE HCL 1% 10 MG/ML VIAL ONE (13:29)
[2020-12-06] MEDS ORDERED: POVIDONE IODINE 0.05% 0.05 % ML PO ONE (13:29)
[2020-12-06] MEDS ORDERED: LIDOCAINE HCL 2% LOCAL INJ 5 ML SDV VIAL INJ ONE (13:29)
[2020-12-06] MEDS ORDERED: SUCCINYLCHOLINE CHLORIDE 20 MG/ML 10ML VIAL ONE (13:29)
[2020-12-06] MEDS ORDERED: ROCURONIUM BROMIDE 10 MG/ML 5ML VIAL IV ONE (13:29)
[2020-12-06] MEDS ORDERED: PROPOFOL IV EMULSION 10 MG/ML 20 ML VIAL ONE (13:29)
[2020-12-06 13:55] LABS: HEMOGLOBIN 6.1 g/dL (14.0-18.0)
[2020-12-06 13:56] LABS: HEMATOCRIT 18.8 % (38.2-49.6)
[2020-12-06 14:09] LABS: INR 1.48; PROTHROMBIN TIME 19.1 seconds (11.9-14.5)
[2020-12-06] MEDS ORDERED: LACTATED RINGER'S 1,000 ML INJ SCH (15:45)
[2020-12-06] MEDS ORDERED: FUROSEMIDE INJ 10 MG/ML 2 ML VIAL IV ONE (15:50)
[2020-12-06] MEDS ORDERED: FENTANYL CITRATE/PF 100MCG/2 ML INJ ONE (16:40)
[2020-12-06] MEDS ORDERED: SODIUM CHLORIDE 0.45% 1,000 ML ONE (17:38)
[2020-12-06] MEDS ORDERED: NOREPINEPHRINE 8 MG/D5W 250 ML 250 ML ONE (17:39)
[2020-12-06] MEDS ORDERED: SODIUM CHLORIDE 0.9% 1000ML 2,000 ML ONE (17:44)
[2020-12-06] MEDS ORDERED: METOCLOPRAMIDE HCL 10 MG/2ML VIAL IV SCH (18:00)
[2020-12-06] MEDS ORDERED: IOPAMIDOL 370 MG/ML 200 ML INFUS..BTL INJ ONE (18:02)
[2020-12-06 19:05] LABS: HEMATOCRIT 26.6 % (38.2-49.6); HEMOGLOBIN 8.1 g/dL (14.0-18.0)
[2020-12-06] MEDS ORDERED: LORAZEPAM INJ 2 MG/ML VIAL IV PRN (19:30)
[2020-12-06] MEDS ORDERED: FENTANYL 2000MCG/NS 250 250 ML IV SCH (19:30)
[2020-12-06] MEDS ORDERED: CALCIUM GLUCONATE 10% INJ 9.3 MEQ in SODIUM CHLORIDE 0.9% 100 ML 100 ML IV ONE (19:45)
[2020-12-06] MEDS ORDERED: FENTANYL 2000MCG/NS 250 250 ML ONE (19:52)
[2020-12-06 22:31] LABS: ABG HCO3 19 mmol/L (22-26); ABG PCO2 57 mmHg (35-45); ABG PH 7.12 (7.35-7.45); ABG PO2 234 mmHg (80-105); ABG TCO2 20
[2020-12-07] MEDS ORDERED: FUROSEMIDE INJ 10 MG/ML 2 ML VIAL IV SCH (09:00)
== END 2020-12-06 22:53 | disposition short-term general hospital (02) | DRG 432 ==
LOC: ER 02:12 → ERHOLD 02:40 → ICU 04:55
PROVIDERS: ADMIT Family Medicine; ATTEND Family Medicine
PROC: 06L38CZ Occlusion of Esophageal Vein with Extraluminal Device, Via Natural or Artificial Opening Endoscopic (ICD-10-PCS; principal; 2020-12-05)
PROC: 02HV33Z Insertion of Infusion Device into Superior Vena Cava, Percutaneous Approach (ICD-10-PCS; 2020-12-05)
PROC: 30233L1 Transfusion of Nonautologous Fresh Plasma into Peripheral Vein, Percutaneous Approach (ICD-10-PCS; 2020-12-05)
PROC: 30233N1 Transfusion of Nonautologous Red Blood Cells into Peripheral Vein, Percutaneous Approach (ICD-10-PCS; 2020-12-05)
PROC: 30233K1 Transfusion of Nonautologous Frozen Plasma into Peripheral Vein, Percutaneous Approach (ICD-10-PCS; 2020-12-05)
PROC: 30233R1 Transfusion of Nonautologous Platelets into Peripheral Vein, Percutaneous Approach (ICD-10-PCS; 2020-12-06)
DX: K70.30 Alcoholic cirrhosis of liver without ascites (principal); I85.11 Secondary esophageal varices with bleeding; G93.41 Metabolic encephalopathy; R57.1 Hypovolemic shock; D62 Acute posthemorrhagic anemia; N18.4 Chronic kidney disease, stage 4 (severe); E87.2 Acidosis; N17.9 Acute kidney failure, unspecified; Z88.5 Allergy status to narcotic agent; Z88.0 Allergy status to penicillin; K72.90 Hepatic failure, unspecified without coma; I12.9 Hypertensive chronic kidney disease with stage 1 through stage 4 chronic kidney disease, or unspecified chronic kidney disease; F10.21 Alcohol dependence, in remission; F32.A Depression, unspecified; D69.6 Thrombocytopenia, unspecified
CPT/HCPCS: 31500; 36415; 36600; 43255; 71045; 74174; 76700; 78278; 80048; 80053; 80076; 80320; 82140; 82270; 82805; 85014; 85018; 85025; 85049; 85610; 85730; 86850; 86900; 86920; 93005; 94002; 99284; A9512; J0330; J0610; J0696; J1644; J1940; J2001; J2060; J2353; J2354; J2370; J2765; J3010; J3430; J7030; J7050; J7121; P9016; P9017; P9034; Q9967; U0002